=== PATIENT | male | born 1940 | race Caucasian/White ===

== ENCOUNTER 2019-12-28 20:02 | Outpatient (CLI) | payer MEDICARE | END 2019-12-28 20:03 | disposition critical access hospital (66) | LOC: EMS 20:02 | PROVIDERS: ATTEND Surgery | DX: R55 Syncope and collapse (principal) | CPT/HCPCS: A0425; A0429 ==

== ENCOUNTER 2019-12-28 20:27 | Emergency (ER) | payer MEDICARE ==
--- NOTE | 2019-12-28 20:29 | ED Physician Documentation ---
History of Present Illness - Stated complaint Stated Complaint: NEAR SYNCOPE, GLF - History obtained from History obtained from: Patient, EMS (The patient is a 79-year-old male who lives at an assisted living facility he was found slumped over on his couch tonmouna and they called 911 and sent the patient to the ER. The patient denies any complaints he denies any head injury he does admit to drinking alcohol.Patient denies any chest pain or shortness of breath or head pain or abdominal pain.) Review of Systems Ten Systems: 10 systems reviewed and negative Constitutional: reports: Reviewed and negative Eyes: reports: Reviewed and negative Ears: reports: Reviewed and negative Nose: reports: Reviewed and negative Throat: reports: Reviewed and negative Cardiac: reports: Reviewed and negative Respiratory: reports: Reviewed and negative GI: reports: Reviewed and negative : reports: Reviewed and negative Skin: reports: Reviewed and negative Musculoskeletal: reports: Reviewed and negative Neurologic: reports: Reviewed and negative Psychiatric: reports: Reviewed and negative Endocrine: reports: Reviewed and negative Immunocompromised: reports: Reviewed and negative PD PAST MEDICAL HISTORY - Present Medications Home Medications: Ambulatory Orders Medication Instructions Recorded Confirmed Aspirin [Children's Aspirin] 81 mg PO DAILY 12/28/19 12/28/19 Atenolol [Tenormin] 50 mg PO BID 12/28/19 12/28/19 Atorvastatin Calcium 40 mg PO DAILY 12/28/19 12/28/19 Folic Acid 1 mg PO DAILY 12/28/19 12/28/19 [place]-3/Dha/Epa/Fish Oil [Fish Oil 1 cap PO DAILY 12/28/19 12/28/19 1,000 mg Softgel] Valsartan/Hydrochlorothiazide 1 tab PO DAILY 12/28/19 12/28/19 [Valsartan-Hctz 160-25 mg Tab] amLODIPine [Norvasc] 5 mg PO DAILY 12/28/19 12/28/19 - Allergies Allergies/Adverse Reactions: Allergies Allergy/AdvReac Type Severity Reaction Status Date / Time rosuvastatin [From Crestor] Allergy Unknown Verified 12/28/19 20:35 PD ED PE NORMAL - Vitals Vital signs reviewed: Yes - General General: Alert and oriented X 3, No acute distress, Well developed/nourished - HEENT HEENT: Atraumatic, PERRL, Moist mucous membranes - Neck Neck: Supple, no meningeal sign, No JVD - Cardiac Cardiac: RRR, No murmur, Strong equal pulses - Respiratory Respiratory: No respiratory distress, Clear bilaterally - Abdomen Abdomen: Normal bowel sounds, Soft, Non tender, Non distended, Other (no facial droop, no unilateral weakness. ) - Derm Derm: Warm and dry - Extremities Extremities: No deformity, No calf tenderness / cord - Neuro Neuro: Alert and oriented X 3, roll mechanic 2-12 intact, No motor deficit, No sensory deficit, Normal speech - Psych Psych: Normal mood, Normal affect Results - Vitals Vitals: Vital Signs - 24 hr 12/28/19 12/28/19 12/28/19 20:29 21:16 21:46 Temperature 36.8 C Heart Rate 91 90 100 Respiratory 18 17 17 Rate Blood Pressure 130/71 130/71 128/72 O2 Saturation 98 96 99 12/28/19 22:15 Temperature Heart Rate 81 Respiratory 19 Rate Blood Pressure 125/82 H O2 Saturation 96 Oxygen O2 Source Room air - EKG (time done) 20:34 Rate: Rate (enter#) (92), Other (NO STEMI) Maxwell: LAD Intervals: Other (RBBB LAFB) Ischemia: Non specific changes - Labs Labs: Laboratory Tests 12/28/19 12/28/19 12/28/19 20:50 20:52 20:52 WBC 9.5 RBC 3.63 L Hgb 11.1 L Hct 33.9 L MCV 93.4 MCH 30.6 MCHC 32.7 RDW 13.2 Plt Count 327 MPV 9.2 Neut # (Auto) 7.4 H Lymph # (Auto) 1.0 L [place] # (Auto) 1.0 Eos # (Auto) 0.1 Baso # (Auto) 0.0 Absolute Nucleated RBC 0.00 Nucleated RBC % 0.0 PT 15.0 H INR 1.3 H APTT 30.1 Sodium Potassium Chloride Carbon Dioxide Anion Gap BUN Creatinine Estimated GFR (MDRD) Glucose Calcium Total Bilirubin AST ALT Alkaline Phosphatase Total Creatine Kinase Troponin I High Sens B-Natriuretic Peptide Total Protein Albumin Globulin Albumin/Globulin Ratio Lipase Urine Color YELLOW Urine Clarity CLEAR Urine pH 6.0 Ur Specific [place] 1.020 Urine Protein TRACE Urine Glucose (UA) NEGATIVE Urine Ketones NEGATIVE Urine Occult Blood SMALL H Urine Nitrite NEGATIVE Urine Bilirubin NEGATIVE Urine Urobilinogen 0.2 (NORMAL) Ur Leukocyte Esterase NEGATIVE Urine RBC 6-10 H Urine WBC 0-3 Ur Squamous Epith Cells NONE SEEN Urine Bacteria None Seen Urine Mucus Few Strands Ur Microscopic Review INDICATED Urine Culture Comments NOT INDICATED Ethyl Alcohol 12/28/19 12/28/19 12/28/19 20:52 20:52 20:52 WBC RBC Hgb Hct MCV MCH MCHC RDW Plt Count MPV Neut # (Auto) Lymph # (Auto) [place] # (Auto) Eos # (Auto) Baso # (Auto) Absolute Nucleated RBC Nucleated RBC % PT INR APTT Sodium 137 Potassium 3.7 Chloride 100 L Carbon Dioxide 23 Anion Gap 14.0 H BUN 15 Creatinine 1.1 Estimated GFR (MDRD) 65 L Glucose 108 H Calcium 8.1 L Total Bilirubin 1.2 H AST 17 ALT 14 Alkaline Phosphatase 50 Total Creatine Kinase 86 Troponin I High Sens 12.0 B-Natriuretic Peptide 87 Total Protein 6.8 Albumin 3.4 Globulin 3.4 Albumin/Globulin Ratio 1.0 Lipase 46 Urine Color Urine Clarity Urine pH Ur Specific [place] Urine Protein Urine Glucose (UA) Urine Ketones Urine Occult Blood Urine Nitrite Urine Bilirubin Urine Urobilinogen Ur Leukocyte Esterase Urine RBC Urine WBC Ur Squamous Epith Cells Urine Bacteria Urine Mucus Ur Microscopic Review Urine Culture Comments Ethyl Alcohol 82.8 Departure - Departure Disposition: 01 Home, Self Care Clinical Impression: Alcohol intoxication Qualifiers: Complication of substance-induced condition: with unspecified complication Qualified Code(s): F10.929 - Alcohol use, unspecified with intoxication, unspecified Condition: Good Instructions: ED Alcohol Intoxication Follow-Up: YOUR,DOCTOR [Other] - Tomorrow
[2019-12-28 20:55] LABS: BILIRUBIN,URINE NEGATIVE (NEGATIVE); GLUCOSE, URINE (UA) NEGATIVE (NEGATIVE); KETONES,URINE (UA) NEGATIVE (NEGATIVE); LEUKOCYTE ESTERASE, URINE NEGATIVE (NEGATIVE); NITRITE,URINE NEGATIVE (NEGATIVE); OCCULT BLOOD,URINE SMALL (NEGATIVE); PROTEIN,URINE TRACE mg/dL (NEGATIVE); UROBILINOGEN,URINE 0.2 (NORMAL) E.U./dL (NORMAL)
[2019-12-28 20:56] LABS: CLARITY,URINE CLEAR (CLEAR)
[2019-12-28 21:04] LABS: BACTERIA,URINE None Seen /HPF (None Seen); MUCUS,URINE Few Strands; SQUAMOUS EPITHELIAL CELL,UR NONE SEEN (<= Few)
[2019-12-28 21:09] LABS: BASOPHILS % (AUTO) 0.4 %; EOSINOPHILS # (AUTO) 0.1 10^3/uL (0.0-0.7); EOSINOPHILS % (AUTO) 0.5 %; HGB - HEMOGLOBIN 11.1 g/dL (14.0-18.0); LYMPHOCYTES % (AUTO) 10.1 %; MEAN CORPUSCULAR HEMOGLOBIN 30.6 pg (27.0-31.0); MEAN CORPUSCULAR HGB CONC 32.7 g/dL (32.0-36.0); MEAN CORPUSCULAR VOLUME 93.4 fL (80.0-94.0); MEAN PLATELET VOLUME 9.2 fL (7.4-11.4); MONOCYTES % (AUTO) 10.3 %; NEUTROPHILS # (AUTO) 7.4 10^3/uL (1.5-6.6); NEUTROPHILS % (AUTO) 77.9 %; PLT - PLATELET COUNT 327 10^3/uL (130-450); RED BLOOD COUNT 3.63 10^6/uL (4.70-6.10); RED CELL DISTRIBUTION WIDTH 13.2 % (12.0-15.0); WHITE BLOOD COUNT 9.5 x10^3/uL (4.8-10.8)
[2019-12-28 21:15] LABS: INR 1.3 (0.8-1.2)
[2019-12-28 21:22] LABS: PARTIAL THROMBOPLASTIN TIME 30.1 secs (24.9-33.3)
[2019-12-28 21:23] LABS: ALBUMIN 3.4 g/dL (3.2-5.5); BILIRUBIN,TOTAL 1.2 mg/dL (0.2-1.0); CALCIUM 8.1 mg/dL (8.5-10.3); CREATININE 1.1 mg/dL (0.6-1.2); TOTAL PROTEIN 6.8 g/dL (6.7-8.2)
--- NOTE | 2019-12-28 21:30 | XRAY Report ---
Reason: CHEST PAIN Procedure Date: 12/28/2019 Accession Number: [id number] / [id number] Procedure: XR - Chest 1 View X-Ray CPT Code: 03290 Final Report FULL RESULT: EXAM: CHEST RADIOGRAPHY EXAM DATE: 12/28/2019 09:08 PM. CLINICAL HISTORY: CHEST PAIN. COMPARISON: None. TECHNIQUE: 1 view. FINDINGS: Lungs/Pleura: Right midlung calcified pulmonary nodule measuring 1 cm. No consolidation, pleural effusion or pneumothorax. Mediastinum: Within exam limitations, the cardiomediastinal contour is normal. IMPRESSION: No acute cardiopulmonary disease seen. Calcified right midlung pulmonary nodule. RADIA
--- NOTE | 2019-12-28 21:55 | CT Report ---
Reason: SYNCOPE Procedure Date: 12/28/2019 Accession Number: [id number] / [id number] Procedure: CT - HEAD WO CPT Code: Final Report FULL RESULT: EXAM: CT HEAD EXAM DATE: 12/28/2019 09:32 PM. CLINICAL HISTORY: Syncope. COMPARISON: None. TECHNIQUE: Multiaxial CT images were obtained from the foramen magnum to the vertex. Reformats: Sagittal and coronal. IV contrast: None. In accordance with CT protocol optimization, one or more of the following dose reduction techniques were utilized for this exam: automated exposure control, adjustment of mA and/or KV based on patient size, or use of iterative reconstructive technique. FINDINGS: Parenchyma: No intraparenchymal hemorrhage. No evidence of mass, midline shift, or CT findings of infarction. Joe-white differentiation is distinct. Extraaxial Spaces: Normal for age. No subdural or epidural collections identified. Ventricles: Normal in size and position. Sinuses and Orbits: Imaged paranasal sinuses, orbits, and mastoids show no significant abnormality. Bones: No evidence of fracture or calvarial defect. Other: None. IMPRESSION: No acute intracranial abnormality. RADIA
[2019-12-28 23:23] VITALS: BP 125/75
== END 2019-12-28 23:20 | disposition home or self-care (01) ==
LOC: ED 20:27
DX: F10.129 Alcohol abuse with intoxication, unspecified (principal)
CPT/HCPCS: 36415; 70450; 71045; 80053; 80320; 81001; 81003; 82550; 83690; 83880; 84484; 85025; 85610; 85730; 87086; 93005; 99284

== ENCOUNTER 2020-04-09 20:50 | Outpatient (CLI) | payer MEDICARE | END 2020-04-09 20:51 | disposition short-term general hospital (02) | LOC: EMS 20:50 | PROVIDERS: ATTEND Surgery | DX: R41.0 Disorientation, unspecified (principal); R53.1 Weakness | CPT/HCPCS: A0425; A0429 ==

== ENCOUNTER 2020-05-09 08:31 | Outpatient (CLI) | payer MEDICARE ==
[2020-05-09 15:57] LABS: BASOPHILS % (AUTO) 0.6 %; EOSINOPHILS # (AUTO) 0.1 10^3/uL (0.0-0.7); EOSINOPHILS % (AUTO) 1.8 %; HGB - HEMOGLOBIN 11.8 g/dL (14.0-18.0); LYMPHOCYTES # (AUTO) 1.2 10^3/uL (1.5-3.5); MEAN CORPUSCULAR HEMOGLOBIN 29.8 pg (27.0-31.0); MEAN CORPUSCULAR HGB CONC 31.5 g/dL (32.0-36.0); MEAN CORPUSCULAR VOLUME 94.7 fL (80.0-94.0); MEAN PLATELET VOLUME 9.9 fL (7.4-11.4); MONOCYTES # (AUTO) 0.6 10^3/uL (0.0-1.0); MONOCYTES % (AUTO) 8.4 %; NEUTROPHILS # (AUTO) 5.1 10^3/uL (1.5-6.6); NEUTROPHILS % (AUTO) 71.9 %; PLT - PLATELET COUNT 400 10^3/uL (130-450); RED BLOOD COUNT 3.96 10^6/uL (4.70-6.10); RED CELL DISTRIBUTION WIDTH 13.4 % (12.0-15.0); WHITE BLOOD COUNT 7.1 x10^3/uL (4.8-10.8)
[2020-05-09 16:32] LABS: ALBUMIN 3.4 g/dL (3.2-5.5); ALBUMIN/GLOBULIN RATIO 0.9 (1.0-2.2); ALKALINE PHOSPHATASE 62 IU/L (42-121); ALT ALANINE AMINOTRANSFERASE 21 IU/L (10-60); AST ASPARTATE AMINOTRANSFERASE 23 IU/L (10-42); BILIRUBIN,TOTAL 0.9 mg/dL (0.2-1.0); BUN - BLOOD UREA NITROGEN 12 mg/dL (6-20); CALCIUM 8.5 mg/dL (8.5-10.3); CARBON DIOXIDE - CO2 29 mmol/L (21-32); CHLORIDE 96 mmol/L (101-111); CHOL/HDL RATIO 5.1 (<5.0); CHOLESTEROL 133 mg/dL; CREATININE 1.1 mg/dL (0.6-1.2); GLUCOSE 113 mg/dL (70-100); HDL CHOLESTEROL 26 mg/dL; LDL CHOLESTEROL,CALCULATED 87 mg/dL; LDL/HDL RATIO 3.3 (<3.6); SODIUM 134 mmol/L (135-145); VLDL CHOLESTEROL 20 mg/dL
== END 2020-05-09 08:32 | disposition home or self-care (01) ==
LOC: LAB.S 08:31
PROVIDERS: ATTEND Physician Assistant
DX: E78.5 Hyperlipidemia, unspecified (principal); I10 Essential (primary) hypertension; Z79.899 Other long term (current) drug therapy
CPT/HCPCS: 36415; 80053; 80061; 83721; 84443; 85025

== ENCOUNTER 2020-07-04 21:08 | Outpatient (CLI) | payer MEDICARE | END 2020-07-04 21:09 | disposition critical access hospital (66) | LOC: EMS 21:08 | PROVIDERS: ATTEND Surgery | DX: S01.81XA Laceration without foreign body of other part of head, initial encounter (principal); W18.39XA Other fall on same level, initial encounter; W22.09XA Striking against other stationary object, initial encounter; Y93.E8 Activity, other personal hygiene; Y92.091 Bathroom in other non-institutional residence as the place of occurrence of the external cause | CPT/HCPCS: A0425; A0429 ==

== ENCOUNTER 2020-08-18 11:13 | Outpatient (CLI) | payer MEDICARE | END 2020-08-18 11:14 | disposition critical access hospital (66) | LOC: EMS 11:13 | PROVIDERS: ATTEND Surgery | DX: R41.0 Disorientation, unspecified (principal) | CPT/HCPCS: A0425; A0429 ==

== ENCOUNTER 2020-08-18 12:07 | Emergency (ER) | payer BC, MEDICARE ==
--- NOTE | 2020-08-18 12:35 | ED Physician Documentation ---
History of Present Illness - Stated complaint Stated Complaint: CONFUSED - Chief complaint Chief Complaint: General - History obtained from History obtained from: Patient - History of Present Illness Timing: Today Pain level max: 0 Pain level now: 0 - Additonal information Additional information: 79-year-old male walking his dog outside of [facility] today when he sat down next to the flag pole, someone went to help him up and he stumbled. No head, neck, back pain. No loss of consciousness. No injuries. [place] thought he should "get checked out". 911 was called and patient was sent to the emergency department. Patient states he has no complaints. Feels normal and wants to go back home. Review of Systems Unable to obtain: Dementia Constitutional: denies: Fever, Chills Nose: denies: Rhinorrhea / runny nose, Congestion Skin: denies: Rash Musculoskeletal: denies: Neck pain, Back pain Neurologic: denies: Focal weakness, Numbness PD PAST MEDICAL HISTORY - Past Medical History Cardiovascular: Hypertension, High cholesterol Neuro: Dementia Psych: Other - Present Medications Home Medications: Ambulatory Orders Medication Instructions Recorded Confirmed Aspirin [Children's Aspirin] 81 mg PO DAILY 12/28/19 07/04/20 Atorvastatin Calcium 40 mg PO DAILY 12/28/19 07/04/20 Folic Acid 1 mg PO DAILY 12/28/19 12/28/19 [place]-3/Dha/Epa/Fish Oil [Fish Oil 1 cap PO DAILY 12/28/19 12/28/19 1,000 mg Softgel] Acetaminophen 650 mg PO Q4HR PRN 07/04/20 07/04/20 Cyanocobalamin (Vitamin B-12) 1 tab PO DAILY 07/04/20 07/04/20 [Vitamin B-12 (1000 mcg sublingual)] Metoprolol Tartrate 25 mg PO BID 07/04/20 07/04/20 Quetiapine Fumarate 25 mg PO BID 07/04/20 07/04/20 Sennosides [Ex-Lax] 30 mg PO DAILY PRN 07/04/20 07/04/20 Sennosides/Docusate Sodium [Senna 1 tab PO BID PRN 07/04/20 07/04/20 Plus 8.6-50 mg Tablet] cephALEXin [Cephalexin] 500 mg PO TID 07/04/20 07/04/20 - Allergies Allergies/Adverse Reactions: Allergies Allergy/AdvReac Type Severity Reaction Status Date / Time rosuvastatin [From Crestor] Allergy Unknown Verified 07/04/20 21:41 - Social History Does the pt smoke?: No Smoking Status: Never smoker Does the pt drink ETOH?: Yes Does the pt have substance abuse?: No - Immunizations Immunizations are current?: No - POLST Patient has POLST: No PD ED PE NORMAL - Vitals Vital signs reviewed: Yes - General General: Alert and oriented X 3, No acute distress - HEENT HEENT: Atraumatic, PERRL, Moist mucous membranes - Neck Neck: Supple, no meningeal sign, No bony TTP - Cardiac Cardiac: RRR - Respiratory Respiratory: No respiratory distress, Clear bilaterally - Abdomen Abdomen: Soft, Non tender, Non distended - Back Back: No spinal TTP - Derm Derm: Warm and dry - Extremities Extremities: No deformity, No tenderness to palpate, Normal ROM s pain - Neuro Neuro: Alert and oriented X 3 - Psych Psych: Normal mood, Normal affect Results - Vitals Vitals: Vital Signs - 24 hr 08/18/20 12:17 Temperature 36.8 C Heart Rate 60 Respiratory 16 Rate Blood Pressure 133/72 H O2 Saturation 100 Oxygen O2 Source Room air PD MEDICAL DECISION MAKING - ED course Complexity details: considered differential, d/w patient ED course: No injuries. No abrasions. No lacerations. No evidence of head injury. Patient is at his normal baseline. Patient will be discharged back home. This document was made in part using voice recognition software. While efforts are made to proofread this document, sound alike and grammatical errors may occur. Departure - Departure Disposition: 01 Home, Self Care Clinical Impression: Dementia Qualifiers: Dementia type: unspecified type Dementia behavioral disturbance: without behavioral disturbance Qualified Code(s): F03.90 - Unspecified dementia without behavioral disturbance Fall Qualifiers: Encounter type: initial encounter Qualified Code(s): W19.XXXA - Unspecified fall, initial encounter Condition: Good Instructions: ED Mechanical Fall Follow-Up: your,doctor in 1 week [Other] Comments: Follow up with your doctor for further care.
[2020-08-18 13:30] VITALS: BP 143/63
== END 2020-08-18 13:30 | disposition home or self-care (01) ==
LOC: EDUNIT# → ED 12:07
DX: Z03.89 Encounter for observation for other suspected diseases and conditions ruled out (principal); F03.90 Unspecified dementia, unspecified severity, without behavioral disturbance, psychotic disturbance, mood disturbance, and anxiety
CPT/HCPCS: 99283; 99284

== ENCOUNTER 2021-08-25 21:30 | Outpatient (CLI) | payer MEDICARE | END 2021-08-25 21:31 | disposition critical access hospital (66) | LOC: EMS 21:30 | DX: R41.82 Altered mental status, unspecified (principal) | CPT/HCPCS: A0425; A0427 ==

== ENCOUNTER 2021-08-25 21:54 | Emergency (ER) | payer MEDICARE ==
[2021-08-25] MEDS ORDERED: SODIUM CHLORIDE 0.9% 1,000 ML IV STA (22:06)
--- NOTE | 2021-08-25 22:08 | ED Physician Documentation ---
PD HPI ALTERED MENTAL STATUS - Stated complaint Stated Complaint: LETHARGIC - History obtained from History obtained from: Patient, EMS - History of Present Illness Timing - onset: Enter time (1800), Today Timing - duration: Hours Timing - details: Gradual onset, Still present Quality / character: Less responsive Associated symptoms: Urinary sx (frequency), General weakness. No: Fever, Headache, Stiff neck, Dyspnea, Cough, NVD, Focal weakness, Seizure activity, Syncope Contributing factors: Known dementia. No: Anticoagulated, Diabetic, Recent illness Basline status: Ambulatory, Confused Similar symptoms before: Has not had sx before Recently seen: Not recently seen - Additional information Additional information: 80-year-old male with a known history of dementia was last seen normal at 1300 today and this evening around 6:00 he began to be less responsive had poor color and weakness. The ambulance was summoned and the patient has been brought to the hospital he is been given a 500 mL bolus in route to the hospital when he was not able to complete orthostatics secondary to weakness. He had improvement in his color and interaction. Review of Systems Unable to obtain: Confused, Dementia PD PAST MEDICAL HISTORY - Past Medical History Cardiovascular: Hypertension, High cholesterol Neuro: Dementia Psych: Other - Past Surgical History Past Surgical History: No - Present Medications Home Medications: Ambulatory Orders Medication Instructions Recorded Confirmed Aspirin [Children's Aspirin] 81 mg PO DAILY 12/28/19 08/26/21 Atorvastatin Calcium 40 mg PO DAILY 12/28/19 08/26/21 Folic Acid 1 mg PO DAILY 12/28/19 08/26/21 [place]-3/Dha/Epa/Fish Oil [Fish Oil 1 cap PO DAILY 12/28/19 08/26/21 1,000 mg Softgel] Acetaminophen 650 mg PO Q4HR PRN 07/04/20 08/26/21 Cyanocobalamin (Vitamin B-12) 1 tab PO DAILY 07/04/20 08/26/21 [Vitamin B-12 (1000 mcg sublingual)] Metoprolol Tartrate 25 mg PO BID 07/04/20 08/26/21 Quetiapine Fumarate 25 mg PO BID 07/04/20 08/26/21 Sennosides [Ex-Lax] 30 mg PO DAILY PRN 07/04/20 08/26/21 Sennosides/Docusate Sodium [Senna 1 tab PO BID PRN 07/04/20 08/26/21 Plus 8.6-50 mg Tablet] cephALEXin [Cephalexin] 500 mg PO TID 07/04/20 08/26/21 - Allergies Allergies/Adverse Reactions: Allergies Allergy/AdvReac Type Severity Reaction Status Date / Time rosuvastatin [From Crestor] Allergy Unknown Verified 08/25/21 22:03 - Social History Does the pt smoke?: No Smoking Status: Never smoker Does the pt drink ETOH?: Yes Does the pt have substance abuse?: No - Immunizations Immunizations are current?: No - POLST Patient has POLST: No PD ED PE NORMAL - Vitals Vital signs reviewed: Yes (normal ) - General General: No acute distress, Well developed/nourished, Other (3-4 second speech latency, greater delay in execution of motor commands. forgets what he is doing as he is doing it. ) - HEENT HEENT: Atraumatic, PERRL, EOMI, Other (dry mucous membranes) - Neck Neck: Supple, no meningeal sign, No bony TTP - Cardiac Cardiac: RRR, No murmur - Respiratory Respiratory: No respiratory distress, Clear bilaterally - Abdomen Abdomen: Normal bowel sounds, Soft, Non tender, Non distended, No organomegaly - Back Back: No CVA TTP, No spinal TTP - Derm Derm: Normal color, Warm and dry, No rash - Extremities Extremities: No deformity, No edema - Neuro Neuro: cattle feeder 2-12 intact, No motor deficit, No sensory deficit, Other (speech latency is present with poor content) Eye Opening: Spontaneous Motor: Obeys Commands Verbal: Confused GCS Score: 14 - Psych Psych: Normal mood, Normal affect Results - Vitals Vitals: Vital Signs - 24 hr 08/25/21 08/25/21 08/26/21 22:03 22:06 00:06 Temperature 36.8 C 36.6 C Heart Rate 68 68 66 Respiratory 16 16 24 Rate Blood Pressure 124/62 124/62 122/68 O2 Saturation 96 96 99 08/26/21 08/26/21 02:00 02:33 Temperature 36.6 C Heart Rate 93 89 Respiratory 22 21 Rate Blood Pressure 100/77 119/66 O2 Saturation 98 99 Oxygen O2 Source Room air - Labs Labs: Laboratory Tests 08/25/21 08/25/21 08/25/21 22:57 22:57 22:57 WBC 18.5 H RBC 4.34 L Hgb 13.7 L Hct 41.3 L MCV 95.2 H MCH 31.6 H MCHC 33.2 RDW 13.4 Plt Count 221 MPV 9.4 Neut # (Auto) Not Reportable Lymph # (Auto) Not Reportable [place] # (Auto) Not Reportable Eos # (Auto) Not Reportable Baso # (Auto) Not Reportable Absolute Nucleated RBC Not Reportable Total Counted 100 Band Neuts % (Manual) 6 Abnorm Lymph % (Manual) 0 Nucleated RBC % Not Reportable Neutrophils # (Manual) 17.2 H Lymphocytes # (Manual) 0.4 L Monocytes # (Manual) 0.9 Eosinophils # (Manual) 0.0 Basophils # (Manual) 0.0 Differential Comment MANUAL DIFFERENTIAL WBC Morphology NORMAL APPEARANCE Platelet Estimate NORMAL (130-450,000) Platelet Morphology NORMAL APPEARANCE RBC Morph Micro Appear NORMAL APPEARANCE Sodium 135 Potassium 4.0 Chloride 99 L Carbon Dioxide 25 Anion Gap 11.0 BUN 21 H Creatinine 1.4 H Estimated GFR (MDRD) 49 L Glucose 169 H Lactic Acid 2.0 Calcium 8.3 L Total Bilirubin 3.5 H AST 23 ALT 24 Alkaline Phosphatase 53 Total Protein 7.0 Albumin 3.7 Globulin 3.3 Albumin/Globulin Ratio 1.1 Lipase 28 Urine Color Urine Clarity Urine pH Ur Specific [place] Urine Protein Urine Glucose (UA) Urine Ketones Urine Occult Blood Urine Nitrite Urine Bilirubin Urine Urobilinogen Ur Leukocyte Esterase Urine RBC Urine WBC Ur Squamous Epith Cells Urine Bacteria Urine Casts Ur Microscopic Review Urine Culture Comments 08/26/21 01:44 WBC RBC Hgb Hct MCV MCH MCHC RDW Plt Count MPV Neut # (Auto) Lymph # (Auto) [place] # (Auto) Eos # (Auto) Baso # (Auto) Absolute Nucleated RBC Total Counted Band Neuts % (Manual) Abnorm Lymph % (Manual) Nucleated RBC % Neutrophils # (Manual) Lymphocytes # (Manual) Monocytes # (Manual) Eosinophils # (Manual) Basophils # (Manual) Differential Comment WBC Morphology Platelet Estimate Platelet Morphology RBC Morph Micro Appear Sodium Potassium Chloride Carbon Dioxide Anion Gap BUN Creatinine Estimated GFR (MDRD) Glucose Lactic Acid Calcium Total Bilirubin AST ALT Alkaline Phosphatase Total Protein Albumin Globulin Albumin/Globulin Ratio Lipase Urine Color YELLOW Urine Clarity CLEAR Urine pH 5.0 Ur Specific [place] >=1.030 H Urine Protein 30 H Urine Glucose (UA) NEGATIVE Urine Ketones TRACE Urine Occult Blood MODERATE H Urine Nitrite NEGATIVE Urine Bilirubin NEGATIVE Urine Urobilinogen 0.2 (NORMAL) Ur Leukocyte Esterase NEGATIVE Urine RBC 0-5 Urine WBC 0-3 Ur Squamous Epith Cells RARE Squamous Urine Bacteria Rare Urine Casts 0-2 Hyaline Casts Ur Microscopic Review INDICATED Urine Culture Comments NOT INDICATED - Rads (name of study) CT head Radiology: Prelim report reviewed (Impression: No acute intracranial process.), EMP read indepedently, See rad report cxr Radiology: Prelim report reviewed (Impression: No acute disease.), EMP read indepedently, See rad report Procedures - IVC sono (time) 2200 Bedside IVC sono: IVC measures (cm) (0.72), Significant dehydration (est 2-3 liter deficit) PD MEDICAL DECISION MAKING - ED course Complexity details: reviewed results, re-evaluated patient, considered differential, d/w patient ED course: 80-year-old male with a known history of dementia is a resident of [facility] where he was discovered more confused and less active than usual this evening. He has been transported in route he has been given a fluid bolus with some improvement. He is found to be significantly dehydrated on interrogation the inferior vena cava and is given additional saline. He has been having some urinary symptoms with increased urinary frequency. History is scant and is done through EMS and the history from EMS is done through the medical language specialist at [facility]. The patient responds to treatment with additional fluid and he has improvement in his speech latency and in his delay in execution of motor commands. No specific infection was identified. The patients level of dehydration was significant and may represent the beginning of terminal dehydration. The patient does not have a POLST form to indicate a desire for IV fluids or tube feedings. Departure - Departure Disposition: 01 Home, Self Care Clinical Impression: Dehydration determined by examination Dementia Qualifiers: Dementia type: unspecified type Dementia behavioral disturbance: without behavioral disturbance Qualified Code(s): F03.90 - Unspecified dementia without behavioral disturbance Condition: Stable Instructions: ED Dehydration Follow-Up: ANA GÓMEZ PA-C [Provider Admit Priv/Credential] - Discharge Date/Time: 08/26/21 03:09
[2021-08-25 23:06] LABS: BASOPHILS % (AUTO) 0.2 %; EOSINOPHILS % (AUTO) 0.1 %; HCT - HEMATOCRIT 41.3 % (42.0-52.0); HGB - HEMOGLOBIN 13.7 g/dL (14.0-18.0); LYMPHOCYTES % (AUTO) 2.4 %; MEAN CORPUSCULAR HEMOGLOBIN 31.6 pg (27.0-31.0); MEAN CORPUSCULAR HGB CONC 33.2 g/dL (32.0-36.0); MEAN CORPUSCULAR VOLUME 95.2 fL (80.0-94.0); MEAN PLATELET VOLUME 9.4 fL (7.4-11.4); MONOCYTES % (AUTO) 5.5 %; NEUTROPHILS % (AUTO) 90.6 %; PLT - PLATELET COUNT 221 10^3/uL (130-450); RED BLOOD COUNT 4.34 10^6/uL (4.70-6.10); RED CELL DISTRIBUTION WIDTH 13.4 % (12.0-15.0); WHITE BLOOD COUNT 18.5 x10^3/uL (4.8-10.8)
[2021-08-25 23:08] LABS: ABNORMAL LYMPHS % (MANUAL) 0 %
--- NOTE | 2021-08-25 23:16 | XRAY Report ---
PROCEDURE: Chest 1 View X-Ray INDICATIONS: chest pain TECHNIQUE: One view of the chest was acquired. COMPARISON: None FINDINGS: Surgical changes and devices: None. Lungs and pleura: No pleural effusions or pneumothorax. Lungs are clear. Mediastinum: Mediastinal contours appear normal. Heart size is normal. Bones and chest wall: No suspicious bony lesions. Overlying soft tissues appear unremarkable. IMPRESSION: No acute disease. Reviewed by: Charlie King MD on 08/25/2021 11:14 PM PDT Approved by: Charlie King MD on 08/25/2021 11:14 PM PDT Station ID: [id number]
[2021-08-25 23:17] LABS: ALBUMIN 3.7 g/dL (3.2-5.5); ALBUMIN/GLOBULIN RATIO 1.1 (1.0-2.2); BILIRUBIN,TOTAL 3.5 mg/dL (0.2-1.0); CALCIUM 8.3 mg/dL (8.5-10.3); CREATININE 1.4 mg/dL (0.6-1.2)
--- NOTE | 2021-08-25 23:18 | CT Report ---
PROCEDURE: HEAD WO INDICATIONS: aloc TECHNIQUE: Noncontrast 4.5 mm thick angled axial sections acquired from the foramen magnum to the vertex. For r adiation dose reduction, the following was used: automated exposure control, adjustment of mA and/or kV according to patient size. COMPARISON: None. FINDINGS: Image quality: Excellent. CSF spaces: Basal cisterns are patent. No extra-axial fluid collections. Ventricles are normal in size and shape. Brain: No midline shift. No intracranial masses or hemorrhage. Joe-white matter interface is norm al. Skull and face: Calvarium and visualized facial bones are intact, without suspicious lesions. Sinuses: Visualized sinuses and mastoids are clear. IMPRESSION: No acute intracranial process. Reviewed by: Charlie King MD on 08/25/2021 11:16 PM PDT Approved by: Charlie King MD on 08/25/2021 11:16 PM PDT Station ID: [id number]
[2021-08-25 23:22] LABS: BAND NEUTROPHILS % (MANUAL) 6 %; DIFFERENTIAL COMMENT MANUAL DIFFERENTIAL; LYMPHOCYTES # (MANUAL) 0.4 10^3/uL (1.5-3.5); LYMPHOCYTES % (MANUAL) 2 %; MONOCYTES # (MANUAL) 0.9 10^3/uL (0.0-1.0); NEUTROPHILS # (MANUAL) 17.2 10^3/uL (1.5-6.6); PLATELET ESTIMATE, MANUAL NORMAL (130-450,000) (NORMAL); PLATELET MORPHOLOGY NORMAL APPEARANCE (NORMAL); RBC MORPHOLOGY (MULTIPLE) NORMAL APPEARANCE (NORMAL); WBC MORPHOLOGY (MULTIPLE) NORMAL APPEARANCE (NORMAL)
[2021-08-26] MEDS ORDERED: SODIUM CHLORIDE 0.9% 1,000 ML IV STA (00:07)
[2021-08-26 02:01] LABS: BILIRUBIN,URINE NEGATIVE (NEGATIVE); GLUCOSE, URINE (UA) NEGATIVE (NEGATIVE); KETONES,URINE (UA) TRACE mg/dL (NEGATIVE); LEUKOCYTE ESTERASE, URINE NEGATIVE (NEGATIVE); NITRITE,URINE NEGATIVE (NEGATIVE); OCCULT BLOOD,URINE MODERATE (NEGATIVE); PROTEIN,URINE 30 mg/dL (NEGATIVE); UROBILINOGEN,URINE 0.2 (NORMAL) E.U./dL (NORMAL)
[2021-08-26 02:07] LABS: CLARITY,URINE CLEAR (CLEAR); RBC,URINE 0-5 /HPF (0-5); SQUAMOUS EPITHELIAL CELL,UR RARE Squamous (<= Few); WBC,URINE 0-3 /HPF (0-3)
[2021-08-26 02:08] LABS: BACTERIA,URINE Rare /HPF (None Seen); CASTS, URINE 0-2 Hyaline Casts /LPF
[2021-08-26 02:35] VITALS: BP 119/66
--- NOTE | 2021-08-27 13:12 | ED Physician Documentation ---
ED Addendum - Addendum Addendum: 08/27/21 13:11 patient with 2 positive blood cultures, will call back to ED. Informed culture RN Dwaine
== END 2021-08-26 03:09 | disposition home or self-care (01) ==
LOC: EDUNIT# → ED 21:54
DX: E86.0 Dehydration (principal); R78.81 Bacteremia; R35.0 Frequency of micturition; F03.90 Unspecified dementia, unspecified severity, without behavioral disturbance, psychotic disturbance, mood disturbance, and anxiety; I10 Essential (primary) hypertension; Z79.82 Long term (current) use of aspirin
CPT/HCPCS: 36415; 80053; 81001; 81003; 83605; 83690; 85025; 87040; 87086; 87150; 96360; 96361; 99282

== ENCOUNTER 2021-08-26 02:23 | Outpatient (CLI) | payer MEDICARE | END 2021-08-26 02:24 | disposition home or self-care (01) | LOC: EMS 02:23 | PROVIDERS: ATTEND Emergency Medicine | DX: F03.90 Unspecified dementia, unspecified severity, without behavioral disturbance, psychotic disturbance, mood disturbance, and anxiety (principal); R41.0 Disorientation, unspecified; E86.0 Dehydration | CPT/HCPCS: A0425; A0428 ==

== ENCOUNTER 2021-08-27 14:24 | Outpatient (CLI) | payer MEDICARE | END 2021-08-27 14:25 | disposition critical access hospital (66) | LOC: EMS 14:24 | DX: R78.9 Finding of unspecified substance, not normally found in blood (principal) | CPT/HCPCS: A0425; A0429 ==

== ENCOUNTER 2021-08-27 14:49 | Inpatient (IN) | payer MEDICARE ==
--- NOTE | 2021-08-27 14:54 | ED Physician Documentation ---
PD HPI URI - Stated complaint Stated Complaint: POSITIVE BLOOD CULTURES - History obtained from History obtained from: Patient - History of Present Illness Timing - onset: How many days ago (several days ago) Timing details: Gradual onset (O. Seen in the ERThe patient was noted to have general weakness and some decreased mentation are with evaluation and testing. Subsequently did have blood cultures positive and called to come back. Reportedly still with some general weakness. Denies abd pain, fevers, vomiting, diarrhea.), Waxing and waning Associated symptoms: Fever, Nasal congestion, Dry cough. No: Chest pain, NVD, Bilateral edema Contributing factors: No: Sick contact, Travel, Unimmunized Similar symptoms before: Has not had sx before Recently seen: Emergency Dept (2 days ago.) Review of Systems Unable to obtain: Dementia Constitutional: reports: Fever Nose: reports: Congestion. denies: Rhinorrhea / runny nose Cardiac: denies: Chest pain / pressure Respiratory: reports: Cough GI: denies: Vomiting, Diarrhea Skin: denies: Rash Neurologic: reports: Altered mental status (seemed less alert couple days ago.). denies: Headache PD PAST MEDICAL HISTORY - Past Medical History Cardiovascular: Hypertension, High cholesterol Respiratory: None Neuro: Dementia Endocrine/Autoimmune: None GI: None Psych: Other - Past Surgical History Past Surgical History: No - Present Medications Home Medications: Ambulatory Orders Medication Instructions Recorded Confirmed Aspirin [Children's Aspirin] 81 mg PO DAILY 12/28/19 08/27/21 Atorvastatin Calcium 40 mg PO DAILY 12/28/19 08/27/21 Acetaminophen 650 mg PO Q4HR PRN 07/04/20 08/27/21 Cyanocobalamin (Vitamin B-12) 1 tab PO DAILY 07/04/20 08/27/21 [Vitamin B-12 (1000 mcg sublingual)] Metoprolol Tartrate 25 mg PO BID 07/04/20 08/27/21 Quetiapine Fumarate 25 mg PO BID 07/04/20 08/27/21 Sennosides/Docusate Sodium [Senna 1 tab PO BID PRN 07/04/20 08/27/21 Plus 8.6-50 mg Tablet] Multivit-Min/Folic/Vit K/Lycop 1 each PO DAILY 08/27/21 08/27/21 [One Daily Men's 50 Plus D3 Tab] - Allergies Allergies/Adverse Reactions: Allergies Allergy/AdvReac Type Severity Reaction Status Date / Time rosuvastatin [From Crestor] Allergy Unknown Verified 08/25/21 22:03 - Living Situation Living Situation: reports: With caregiver(s) Living Arrangement: reports: Assisted living ([place]) - Social History Does the pt smoke?: No Smoking Status: Never smoker Does the pt drink ETOH?: Yes Does the pt have substance abuse?: No - Family History Family history: reports: Non contributory - Immunizations Immunizations are current?: No - POLST Patient has POLST: No POLST Status: POA is court appointed PD ED PE NORMAL - Vitals Vital signs reviewed: Yes - General General: No acute distress, Well developed/nourished, Other (some upper airway congestion, and gurgling with breathing. No accessory muscle use. Unlabored breathing. ) - HEENT HEENT: PERRL (some conjunctival redness without discharge right eye. Mild medial [place] crusting. ), EOMI, Ears normal, Pharynx benign - Neck Neck: Supple, no meningeal sign, No adenopathy - Cardiac Cardiac: RRR, No murmur - Respiratory Respiratory: Clear bilaterally - Abdomen Abdomen: Soft, Non tender (I did not elicit any abd tenderness to palpation. ), Non distended. No: Normal bowel sounds (diminished) - Male Male : Other (Normal external genitalia. ) - Rectal Rectal: Other (No sacral nor perirectal sores nor rash. ) - Back Back: No CVA TTP - Derm Derm: Normal color - Extremities Extremities: No tenderness to palpate, No edema, No calf tenderness / cord - Neuro Neuro: No motor deficit, Normal speech (minimal on answers, but is receptive to questions and answers yes/no readily. ). No: Alert and oriented X 3 (person) Eye Opening: Spontaneous Motor: Obeys Commands Verbal: Confused GCS Score: 14 Results - Vitals Vitals: Vital Signs - 24 hr 08/27/21 08/27/21 08/27/21 14:53 16:00 17:04 Temperature 100.3 C H 97.8 C H Heart Rate 74 79 74 Respiratory 26 H 25 H 26 H Rate Blood Pressure 122/85 H 131/73 H 124/69 O2 Saturation 94 95 95 Oxygen O2 Source Room air - Labs Labs: Laboratory Tests 10/08/27/21 08/27/21 15:17 15:25 15:25 WBC 12.4 H RBC 4.05 L Hgb 12.9 L Hct 38.3 L MCV 94.6 H MCH 31.9 H MCHC 33.7 RDW 13.7 Plt Count 198 MPV 9.8 Neut # (Auto) Not Reportable Lymph # (Auto) Not Reportable [place] # (Auto) Not Reportable Eos # (Auto) Not Reportable Baso # (Auto) Not Reportable Absolute Nucleated RBC Not Reportable Total Counted 100 Band Neuts % (Manual) 5 Abnorm Lymph % (Manual) 0 Nucleated RBC % Not Reportable Neutrophils # (Manual) 11.3 H Lymphocytes # (Manual) 0.7 L Monocytes # (Manual) 0.4 Eosinophils # (Manual) 0.0 Basophils # (Manual) 0.0 Differential Comment MANUAL DIFFERENTIAL Manual Slide Review Indicated WBC Morphology 1+ DOHLE BODIES Platelet Estimate NORMAL (130-450,000) Platelet Morphology NORMAL APPEARANCE RBC Morph Micro Appear 1+ ANISOCYTOSIS Sodium 139 Potassium 3.5 Chloride 105 Carbon Dioxide 24 Anion Gap 10.0 BUN 25 H Creatinine 1.1 Estimated GFR (MDRD) 65 L Glucose 150 H Lactic Acid Calcium 8.2 L Total Bilirubin 3.3 H AST 58 H ALT 46 Alkaline Phosphatase 44 B-Natriuretic Peptide Total Protein 6.6 L Albumin 3.0 L Globulin 3.6 Albumin/Globulin Ratio 0.8 L Urine Color Urine Clarity Urine pH Ur Specific [place] Urine Protein Urine Glucose (UA) Urine Ketones Urine Occult Blood Urine Nitrite Urine Bilirubin Urine Urobilinogen Ur Leukocyte Esterase Urine RBC Urine WBC Ur Epithelial Cells Ur Squamous Epith Cells Urine Bacteria Urine Mucus Urine Culture Comments Nasal Adenovirus (PCR) NOT DETECTED Nasal B. parapertussis DNA (PCR) NOT DETECTED Nasal Coronavir 229E PCR NOT DETECTED Nasal Coronavir HKU1 PCR NOT DETECTED Nasal Coronavir NL63 PCR NOT DETECTED Nasal Coronavir OC43 PCR NOT DETECTED Nasal Enterovir/Rhinovir PCR NOT DETECTED Nasal Influenza B PCR NOT DETECTED Nasal Influenza A PCR NOT DETECTED Nasal Parainfluen 1 PCR NOT DETECTED Nasal Parainfluen 2 PCR NOT DETECTED Nasal Parainfluen 3 PCR NOT DETECTED Nasal Parainfluen 4 PCR NOT DETECTED Nasal RSV (PCR) NOT DETECTED Nasal B.pertussis DNA PCR NOT DETECTED Nasal C.pneumoniae (PCR) NOT DETECTED Nura Human Metapneumo PCR NOT DETECTED Nasal M.pneumoniae (PCR) NOT DETECTED Nasal SARS-CoV-2 (PCR) NOT DETECTED 08/27/21 08/27/21 08/27/21 15:25 15:25 16:15 WBC RBC Hgb Hct MCV MCH MCHC RDW Plt Count MPV Neut # (Auto) Lymph # (Auto) [place] # (Auto) Eos # (Auto) Baso # (Auto) Absolute Nucleated RBC Total Counted Band Neuts % (Manual) Abnorm Lymph % (Manual) Nucleated RBC % Neutrophils # (Manual) Lymphocytes # (Manual) Monocytes # (Manual) Eosinophils # (Manual) Basophils # (Manual) Differential Comment Manual Slide Review WBC Morphology Platelet Estimate Platelet Morphology RBC Morph Micro Appear Sodium Potassium Chloride Carbon Dioxide Anion Gap BUN Creatinine Estimated GFR (MDRD) Glucose Lactic Acid 1.3 Calcium Total Bilirubin AST ALT Alkaline Phosphatase B-Natriuretic Peptide 335 H Total Protein Albumin Globulin Albumin/Globulin Ratio Urine Color DARK YELLOW Urine Clarity CLEAR Urine pH 5.5 Ur Specific [place] >=1.030 H Urine Protein 100 H Urine Glucose (UA) NEGATIVE Urine Ketones NEGATIVE Urine Occult Blood SMALL H Urine Nitrite NEGATIVE Urine Bilirubin NEGATIVE Urine Urobilinogen 0.2 (NORMAL) Ur Leukocyte Esterase NEGATIVE Urine RBC 0-5 Urine WBC 0-3 Ur Epithelial Cells FEW Transitional Ur Squamous Epith Cells RARE Squamous Urine Bacteria Rare Urine Mucus Few Strands Urine Culture Comments NOT INDICATED Nasal Adenovirus (PCR) Nasal B. parapertussis DNA (PCR) Nasal Coronavir 229E PCR Nasal Coronavir HKU1 PCR Nasal Coronavir NL63 PCR Nasal Coronavir OC43 PCR Nasal Enterovir/Rhinovir PCR Nasal Influenza B PCR Nasal Influenza A PCR Nasal Parainfluen 1 PCR Nasal Parainfluen 2 PCR Nasal Parainfluen 3 PCR Nasal Parainfluen 4 PCR Nasal RSV (PCR) Nasal B.pertussis DNA PCR Nasal C.pneumoniae (PCR) Nura Human Metapneumo PCR Nasal M.pneumoniae (PCR) Nasal SARS-CoV-2 (PCR) - Rads (name of study) chest xray Radiology: Prelim report reviewed (Right base congestion c/w either edema or infiltrate/pneumonia. ), See rad report abd CT Radiology: Prelim report reviewed (inflammation ascending colon with thick wall. Free air above liver, under diaphragm. ), Discussed with rads, See rad report PD MEDICAL DECISION MAKING - ED course Complexity details: reviewed results (abd CT showing colitis with small amount free air c/w microperforation. Would be treated medically at this point, per surgery. ), considered differential, d/w patient, d/w managing consultant clinical professor (Dr. Melgar, hospitalist, and Dr. Nye, Surgery. ) Departure - Departure Disposition: [facility] DC/Xfer Clinical Impression: Bacteremia, Generalized weakness, Acute colitis, Perforated abdominal viscus Pneumonia Qualifiers: Pneumonia type: due to unspecified organism Laterality: right Lung location: lower lobe of lung Qualified Code(s): J18.9 - Pneumonia, unspecified organism Condition: Stable Discharge Date/Time: 08/27/21 18:34
[2021-08-27] MEDS ORDERED: cefTRIAXone 1 GM in SODIUM CHLORIDE 0.9% MINIBAG 100 ML IV STA (15:06)
[2021-08-27] MEDS ORDERED: SODIUM CHLORIDE 0.9% 1,000 ML IV STA (15:08)
--- NOTE | 2021-08-27 15:29 | XRAY Report ---
PROCEDURE: Chest 1 View X-Ray INDICATIONS: chest pain TECHNIQUE: One view of the chest was acquired. COMPARISON: Chest x-ray 08/25/2021 FINDINGS: Surgical changes and devices: None. Lungs and pleura: There is interval increased appearance of pulmonary vascularity. There is appearanc e of bibasilar coarsening which has developed since the prior exam, more prominent in the right base. Mediastinum: Mediastinal contours appear normal. Heart size is enlarged. Bones and chest wall: No suspicious bony lesions. Overlying soft tissues appear unremarkable. IMPRESSION: Interval increase in pulmonary vascular suggestive of edema. Bibasilar coarsening most prominent in t he right base is present this could represent dependent edema versus developing area of airspace dise ase such as pneumonia. Reviewed by: Anna Edmonds MD on 08/27/2021 3:27 PM PDT Approved by: Anna Edmonds MD on 08/27/2021 3:27 PM PDT Station ID: [id number]
[2021-08-27 15:36] LABS: BASOPHILS % (AUTO) 0.2 %; EOSINOPHILS % (AUTO) 1.7 %; HCT - HEMATOCRIT 38.3 % (42.0-52.0); HGB - HEMOGLOBIN 12.9 g/dL (14.0-18.0); LYMPHOCYTES % (AUTO) 3.3 %; MEAN CORPUSCULAR HEMOGLOBIN 31.9 pg (27.0-31.0); MEAN CORPUSCULAR HGB CONC 33.7 g/dL (32.0-36.0); MEAN CORPUSCULAR VOLUME 94.6 fL (80.0-94.0); MEAN PLATELET VOLUME 9.8 fL (7.4-11.4); MONOCYTES % (AUTO) 4.3 %; NEUTROPHILS % (AUTO) 90.1 %; PLT - PLATELET COUNT 198 10^3/uL (130-450); RED BLOOD COUNT 4.05 10^6/uL (4.70-6.10); RED CELL DISTRIBUTION WIDTH 13.7 % (12.0-15.0); SLIDE REVIEW? Indicated; WHITE BLOOD COUNT 12.4 x10^3/uL (4.8-10.8)
[2021-08-27 15:37] LABS: ABNORMAL LYMPHS % (MANUAL) 0 %
[2021-08-27 15:45] LABS: ALBUMIN/GLOBULIN RATIO 0.8 (1.0-2.2); BILIRUBIN,TOTAL 3.3 mg/dL (0.2-1.0); CALCIUM 8.2 mg/dL (8.5-10.3); CREATININE 1.1 mg/dL (0.6-1.2); POTASSIUM 3.5 mmol/L (3.5-5.0); TOTAL PROTEIN 6.6 g/dL (6.7-8.2)
[2021-08-27] MEDS ORDERED: AZITHROMYCIN INJ 500 MG in SODIUM CHLORIDE 0.9% 250 ML IV STA (15:59)
[2021-08-27 16:18] LABS: BAND NEUTROPHILS % (MANUAL) 5 %; LYMPHOCYTES # (MANUAL) 0.7 10^3/uL (1.5-3.5); LYMPHOCYTES % (MANUAL) 6 %; MONOCYTES # (MANUAL) 0.4 10^3/uL (0.0-1.0); NEUTROPHILS # (MANUAL) 11.3 10^3/uL (1.5-6.6)
[2021-08-27 16:23] LABS: PLATELET ESTIMATE, MANUAL NORMAL (130-450,000) (NORMAL); PLATELET MORPHOLOGY NORMAL APPEARANCE (NORMAL); RBC MORPHOLOGY (MULTIPLE) 1+ ANISOCYTOSIS (NORMAL)
[2021-08-27 16:24] LABS: WBC MORPHOLOGY (MULTIPLE) 1+ DOHLE BODIES (NORMAL)
[2021-08-27 16:38] LABS: BILIRUBIN,URINE NEGATIVE (NEGATIVE); GLUCOSE, URINE (UA) NEGATIVE (NEGATIVE); KETONES,URINE (UA) NEGATIVE (NEGATIVE); LEUKOCYTE ESTERASE, URINE NEGATIVE (NEGATIVE); NITRITE,URINE NEGATIVE (NEGATIVE); OCCULT BLOOD,URINE SMALL (NEGATIVE); PH,URINE 5.5 PH (5.0-7.5); PROTEIN,URINE 100 mg/dL (NEGATIVE); UROBILINOGEN,URINE 0.2 (NORMAL) E.U./dL (NORMAL)
[2021-08-27 16:40] LABS: DIFFERENTIAL COMMENT MANUAL DIFFERENTIAL
[2021-08-27 16:41] LABS: CLARITY,URINE CLEAR (CLEAR)
[2021-08-27 16:42] LABS: B. PARAPERTUSSIS- RESP PCR PAN NOT DETECTED; B. PERTUSSIS- RESP PCR PANEL NOT DETECTED; C. PNEUMONIAE- RESP PCR PANEL NOT DETECTED; CORONAVIRUS 229E-RESP PCR NOT DETECTED; CORONAVIRUS HKU1-RESP PCR NOT DETECTED; CORONAVIRUS NL63-RESP PCR NOT DETECTED; CORONAVIRUS OC43-RESP PCR NOT DETECTED; HUMAN METAPNEUMOVIRUS NOT DETECTED; INFLUENZA A- RESP PCR PANEL NOT DETECTED; INFLUENZA B - RESP PCR PANEL NOT DETECTED; M. PNEUMONIAE- RESP PCR PANEL NOT DETECTED; PARAINFLUENZA VIRUS 1 NOT DETECTED; PARAINFLUENZA VIRUS 2 NOT DETECTED; PARAINFLUENZA VIRUS 3 NOT DETECTED; PARAINFLUENZA VIRUS 4 NOT DETECTED; RHINOVIRUS/ENTEROVIRUS NOT DETECTED; RSV- RESP PCR PANEL NOT DETECTED; SARS-CoV-2 -RESP PCR PANEL NOT DETECTED
[2021-08-27 16:47] LABS: EPITHELIAL CELLS,UR FEW Transitional /HPF (<= Few); RBC,URINE 0-5 /HPF (0-5); SQUAMOUS EPITHELIAL CELL,UR RARE Squamous (<= Few); WBC,URINE 0-3 /HPF (0-3)
[2021-08-27 16:48] LABS: BACTERIA,URINE Rare /HPF (None Seen); MUCUS,URINE Few Strands
--- NOTE | 2021-08-27 17:20 | CT Report ---
PROCEDURE: Abdomen/Pelvis WO INDICATIONS: abd pain; positive blood culture TECHNIQUE: Noncontrast 5 mm thick sections acquired from the diaphragms to the symphysis. 5 mm coronal and sagi ttal reformats were then performed. For radiation dose reduction, the following was used: automated exposure control, adjustment of mA and/or kV according to patient size. COMPARISON: None. FINDINGS: Image quality: There is motion artifact limiting evaluation. Beam hardening artifact is also present from the bilateral upper extremities. ABDOMEN: Lung bases: There is a small right pleural effusion with associated compressive atelectasis as well as patchy consolidation within the right lower and middle lobes. Mild dependent atelectasis also demo nstrated in the left lower lobe as well as a small region of mild consolidation inferiorly. Heart siz e is enlarged. There is a trace pericardial effusion. There is coronary arterial vascular calcificati on. Solid organs: Noncontrast evaluation of the liver demonstrates no discrete mass lesion. Gallbladder i s distended without calcified gallstones or wall thickening. Pancreas is normal in contours. No adre nal nodules. Spleen is normal in size. Kidneys demonstrate no hydronephrosis. Multiple bilateral scott al cysts are demonstrated. Nonspecific perinephric stranding also demonstrated bilaterally. Peritoneum and bowel: There is a small amount of subdiaphragmatic free air in the upper quadrant. A small amount of intraperineal free fluid is also present predominantly in the right anterior pararena l space and right paracolic gutter. There is segmental wall thickening of the ascending colon with associated fat stranding consistent wi th a colitis. There is mild distention of multiple small bowel loops in the lower abdomen with scatte red air-fluid levels but without a discrete transition point to suggest obstruction. There is marked stool distention in the rectum with moderate distention in the sigmoid and descending colon compatibl e with constipation and suggestive of stool impaction. Nodes and vessels: No retroperitoneal or mesenteric adenopathy by size criteria. Aorta and inferior vena cava are normal in caliber. Miscellaneous: No ventral hernias. PELVIS: Genitourinary: Bladder wall thickness is normal. Miscellaneous: No inguinal hernias or adenopathy. Bones: No suspicious bony lesions. No vertebral body compression fractures. IMPRESSION: 1. Small amount of right subdiaphragmatic pneumoperitoneum likely reflects perforated viscus. Given t he segmental inflammatory changes within the descending colon right upper quadrant, a small colonic p erforation is suspected. No definite free air identified along the stomach or duodenum to suggest a p erforated duodenal or gastric ulcer. 2. Small right pleural effusion with associated compressive atelectasis as well as consolidation sugg estive of pneumonia. 3. Small amount of intraperitoneal free fluid with a right-sided predominance may also be related to perforation. Findings discussed Dr. Cox on 08/27/2021 at 5:10 PM. 4. Marked stool distention in the rectum and distal colon compatible with constipation and possible i mpaction. Reviewed by: Davion Wu MD on 08/27/2021 5:18 PM PDT Approved by: Davion Wu MD on 08/27/2021 5:18 PM PDT Station ID: [id number]
[2021-08-27] MEDS ORDERED: PIPERACILLIN/TAZOBACTAM 3.375 GM in SODIUM CHLORIDE 0.9% MINIBAG 100 ML IV STA (17:36)
--- NOTE | 2021-08-27 17:39 | CONSULTATION NOTE ---
Referring Provider Name of Referring Provider:: Augustine Cox Consult Date: 08/27/21 Chief Complaint - Chief Complaint Chief Complaint: Not feeling well History of Present Illness - Admitted From Admitted From:: ED - History Obtained From Records Reviewed: old records History obtained from: Providers and old records Exam Limitations: Patient mental status - History of Present Illness HPI Comment/Other: Zaki is an unfortunate 80-year-old gentleman who is a resident of [facility].He is well-known to our hospitalist service here.Has a significant past medical history and has been seen here many times.He was seen in our ER a couple of days ago with complaint of just not feeling well.He had some labs drawn that were sort of nonspecific and in the process he also had blood cultures drawn.Blood cultures grew gram-negative rods and so he was called to return to the emergency room for evaluation.He complained of a little bit of cough and shortness of breath.The chest x-ray showed perhaps a little bit of an ill- defined infiltrate on one side.CT scan of the abdomen and pelvis revealed colitis with a small amount of free air and free fluid in the abdomen.It also revealed stool impaction.I have been consulted regarding surgical management. History - Past Medical History Cardiovascular: reports: Hypertension, High cholesterol Respiratory: reports: None Neuro: reports: Dementia Endocrine/Autoimmune: reports: None GI: reports: None Psych: reports: Other MRSA Hx?: No - Family & Social History Living arrangement: Assisted living ([place]) Living Situation: With caregiver(s) - POLST Patient has POLST: No POLST Status: POA is court appointed Meds/Allgy - Home Medications Home Medications: Ambulatory Orders Medication Instructions Recorded Confirmed Aspirin [Children's Aspirin] 81 mg PO DAILY 12/28/19 08/27/21 Atorvastatin Calcium 40 mg PO DAILY 12/28/19 08/27/21 Acetaminophen 650 mg PO Q4HR PRN 07/04/20 08/27/21 Cyanocobalamin (Vitamin B-12) 1 tab PO DAILY 07/04/20 08/27/21 [Vitamin B-12 (1000 mcg sublingual)] Metoprolol Tartrate 25 mg PO BID 07/04/20 08/27/21 Quetiapine Fumarate 25 mg PO BID 07/04/20 08/27/21 Sennosides/Docusate Sodium [Senna 1 tab PO BID PRN 07/04/20 08/27/21 Plus 8.6-50 mg Tablet] Multivit-Min/Folic/Vit K/Lycop 1 each PO DAILY 08/27/21 08/27/21 [One Daily Men's 50 Plus D3 Tab] - Allergies Allergies/Adverse Reactions: Allergies Allergy/AdvReac Type Severity Reaction Status Date / Time rosuvastatin [From Crestor] Allergy Unknown Verified 08/25/21 22:03 Review of Systems - Other Findings Other Findings: Unable to obtain due to patient's mental status Exam - Vital Signs Reviewed Vital Signs: Yes Vital Signs: Vital Signs x48h Temp Pulse Resp BP Pulse Ox 08/27/21 17:04 97.8 C H 74 26 H 124/69 95 08/27/21 16:00 79 25 H 131/73 H 95 08/27/21 14:53 100.3 C H 74 26 H 122/85 H 94 - Physical Exam General Appearance: positive: No acute distress, Lethargic Eyes Bilateral: positive: Normal inspection, PERRL, EOMI Respiratory: positive: Rhonchi, Other (Significant upper airway noise.) Cardiovascular: positive: Regular rate & rhythm Abdomen: positive: Nml bowel sounds, Tenderness (Significant tenderness to palpation in the left lower quadrant.Minimal voluntary guarding. No true rebound.), Guarding. negative: Rebound Skin: positive: Pallor Extremities: positive: No pedal edema Conclusion/Plan - Problem List (1) Acute colitis Conclusion/Plan: 1. Likely related to impaction. Would recommend manual disimpaction with out use of enemas. 2. Start IV antibiotic therapy. Hopefully he will respond to this and we can avoid colostomy. Would recommend following clinically and if he improves would repeat CT scan in 3 days. If not, we will reconsider Batista's procedure. - Lab Results Fish Bones: 08/27/21 15:25 08/27/21 15:25 - Diagnostic Imaging Results Diagnostic Imaging Results Comments: PT NAME: ZAKI HOOD MR#: [id number] REG ER/ED AGE: 80 CI DT/TM: 08/27/21 PCP: : 1940 ATT: SEX: M ORD: Quan Cox MD EXAM: [id number] CT/ABPEWO ([id number]) PROCEDURE: Abdomen/Pelvis WO INDICATIONS: abd pain; positive blood culture TECHNIQUE: Noncontrast 5 mm thick sections acquired from the diaphragms to the symphysis. 5 mm coronal and sagittal reformats were then performed. For radiation dose reduction, the following was used: automated exposure control, adjustment of mA and/or kV according to patient size. COMPARISON: None. FINDINGS: Image quality: There is motion artifact limiting evaluation. Beam hardening artifact is also present from the bilateral upper extremities. ABDOMEN: Lung bases: There is a small right pleural effusion with associated compressive atelectasis as well as patchy consolidation within the right lower and middle lobes. Mild dependent atelectasis also demonstrated in the left lower lobe as well as a small region of mild consolidation inferiorly. Heart size is enlarged. There is a trace pericardial effusion. There is coronary arterial vascular calcification. Solid organs: Noncontrast evaluation of the liver demonstrates no discrete mass lesion. Gallbladder is distended without calcified gallstones or wall thickening. Pancreas is normal in contours. No adrenal nodules. Spleen is normal in size. Kidneys demonstrate no hydronephrosis. Multiple bilateral renal cysts are demonstrated. Nonspecific perinephric stranding also demonstrated bilaterally. Peritoneum and bowel: There is a small amount of subdiaphragmatic free air in the upper quadrant. A small amount of intraperineal free fluid is also present predominantly in the right anterior pararenal space and right paracolic gutter. There is segmental wall thickening of the ascending colon with associated fat stranding consistent with a colitis. There is mild distention of multiple small bowel loops in the lower abdomen with scattered air-fluid levels but without a discrete transition point to suggest obstruction. There is marked stool distention in the rectum with moderate distention in the sigmoid and descending colon compatible with constipation and suggestive of stool impaction. Nodes and vessels: No retroperitoneal or mesenteric adenopathy by size criteria. Aorta and inferior vena cava are normal in caliber. Miscellaneous: No ventral hernias. PELVIS: Genitourinary: Bladder wall thickness is normal. Miscellaneous: No inguinal hernias or adenopathy. Bones: No suspicious bony lesions. No vertebral body compression fractures. IMPRESSION: 1. Small amount of right subdiaphragmatic pneumoperitoneum likely reflects perforated viscus. Given the segmental inflammatory changes within the descending colon right upper quadrant, a small colonic perforation is suspected. No definite free air identified along the stomach or duodenum to suggest a perforated duodenal or gastric ulcer. 2. Small right pleural effusion with associated compressive atelectasis as well as consolidation suggestive of pneumonia. 3. Small amount of intraperitoneal free fluid with a right-sided predominance may also be related to perforation. Findings discussed Dr. Cox on 08/27/2021 at 5:10 PM. 4. Marked stool distention in the rectum and distal colon compatible with constipation and possible impaction. Reviewed by: Davion Wu MD on 08/27/2021 5:18 PM PDT Approved by: Davion Wu MD on 08/27/2021 5:18 PM PDT
[2021-08-27] MEDS ORDERED: ONDANSETRON ODT 4 MG TABLET TL PRN (17:44)
[2021-08-27] MEDS ORDERED: MORPHINE 2 MG/ML CARPUJECT IVP PRN (17:44)
[2021-08-27] MEDS ORDERED: ONDANSETRON 4 MG/2 ML VIAL IVP PRN (17:44)
[2021-08-27] MEDS ORDERED: METOPROLOL 5 MG/5 ML VIAL IVP PRN (17:48)
[2021-08-27] MEDS ORDERED: MINERAL OIL 473 ML BOTTLE PO PRN (17:52)
--- NOTE | 2021-08-27 17:53 | HISTORY & PHYSICAL EXAMINATION ---
Chief Complaint - Chief Complaint Chief Complaint: Gram-negative bacteremia History of Present Illness - Admitted From Admitted From:: Assisted living facility via ambulance - History Obtained From Records Reviewed: [facility] and [facility] History obtained from: Dr. 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 He has been living at the assisted living facility since approximately March 2020. He had been living in a hotel room, found in [facility], taken to [facility] in March 2020. From [place] he was discharged to the assisted living facility. He has dementia with a ship officer. Alcohol abuse was present until March 2020. He is a former smoker who quit smoking around the age of 42. He has high blood pressure, hyperlipidemia, chronically elevated liver enzymes. He has a history of numerous falls. He tries to walk with a walker or a cane if he remembers. He has been seen in the emergency room a couple of times or treated for UTIs in the past year. He was in his usual state of health when the emergency room felt that he was more lethargic than usual. No specific complaints of fever, chills, diarrhea, abdominal pain. They sent him to the emergency room on August 25 where he was evaluated by Dr. Kemp. He was afebrile. Well-nourished. A delayed speech latency and delay in execution of motor commands. But no respiratory distress, clear lungs, benign abdomen. His usual creatinine is 1.4 and he was 1.1. White cell count was 18.5. Urinalysis had a moderate amount of blood, rare squamous cells, rare bacteria. He is inferior vena cava was interrogated via ultrasound and he was found to be significantly dehydrated. He responded to IV fluids. As such she was sent back to his assisted living facility. Blood cultures were done that night and came back positive for gram-negative bacilli. Preliminary report but via PCR does not tell us what it is. Cannot be detected. As such she was asked to come back to the emergency room. After being seen in the emergency room here, he has a low-grade temperature of 100.3. He is normotensive. Not tachycardic. Mildly tachypneic at 26. 94% on room air. He continues to be a cooperative demented elderly gentleman. He has clear lungs. Some conjunctival redness. Normal bowel sounds and nondistended. Repeat evaluation shows him to have a white cell count is 12.4. A BUN of 25 and a creatinine of 1.1. This gentleman has a history of chronically elevated liver enzymes in the past and his current bilirubin is 3.3, AST 58. Lactic acid is 1.3. BNP 335. Urinalysis is transitional cells as well as squamous cells. Dr. Cox spoke to the hospitalist service asking for tentative admission. We requested a CT of the abdomen to make sure he did not have urinary obstruction and we found him to have a surprising report of free air under the diaphragm. General surgery was consulted and found her to have some left lower quadrant tenderness, significant constipation, and most likely a small perforation resulting in free air under the diaphragm. We are being asked to admit the patient with general surgery to consult. They have asked for single agent Zosyn to be started. History - Past Medical History Cardiovascular: reports: Hypertension, High cholesterol, Coronary artery disease (on CT scan calcium calculation) Respiratory: reports: None Neuro: reports: Dementia, Other (Multiple falls w gait ataxia) Endocrine/Autoimmune: reports: None GI: reports: Colon polyps, Hepatitis : reports: Incontinence, Renal insuffiency (CKD), Frequency, Kidney stones HEENT: reports: Chronic vision loss Psych: reports: Other (depression) Musculoskeletal: reports: Osteoarthritis, Gout Derm: reports: Other (actinic keratosis) MRSA Hx?: No - Past Surgical History General: reports: Colonoscopy - Family & Social History Family History Comment/Other: Father at age 59 after alcohol abuse with congestive heart failure. Mother of Alzheimer's disease at the age of 89. 1 brother has had heart disease with bypass surgery. 3 children. One daughter and 2 sons. Does not know what their history is Living arrangement: Assisted living ([facility]) Living Situation: With caregiver(s) Social History Notes: Lives in the [facility] was going back and forth between here and there. Due to dementia they moved to assisted living facility somewhere in 2018. She of dementia and a prolonged illness in December 2019. He then left the assisted facility and went to go live in a hotel. That is where he was found in [facility]. Transferred to [place] for evaluation and discharged to an assisted living facility that has been living at since then. He is an ex-smoker that smoked 1 pack/day for 24 years and quit at the age of 42. Up until his placement in the residential facility he likes to drink vodka, wine, and beer. Family stated that he had problems with alcohol abuse. No history of recreational substance abuse. - Substance History Use: Uses substance without health or social issues: NONE Abuse: Recurrent use of substance despite neg consequences: NONE Dependence: Experiences withdrawal or developed tolerances: NONE - POLST Patient has POLST: No POLST Status: POA is court appointed Meds/Allgy - Home Medications Home Medications: Ambulatory Orders Medication Instructions Recorded Confirmed Aspirin [Children's Aspirin] 81 mg PO DAILY 12/28/19 08/27/21 Atorvastatin Calcium 40 mg PO DAILY 12/28/19 08/27/21 Acetaminophen 650 mg PO Q4HR PRN 07/04/20 08/27/21 Cyanocobalamin (Vitamin B-12) 1 tab PO DAILY 07/04/20 08/27/21 [Vitamin B-12 (1000 mcg sublingual)] Metoprolol Tartrate 25 mg PO BID 07/04/20 08/27/21 Quetiapine Fumarate 25 mg PO BID 07/04/20 08/27/21 Sennosides/Docusate Sodium [Senna 1 tab PO BID PRN 07/04/20 08/27/21 Plus 8.6-50 mg Tablet] Multivit-Min/Folic/Vit K/Lycop 1 each PO DAILY 08/27/21 08/27/21 [One Daily Men's 50 Plus D3 Tab] - Allergies Allergies/Adverse Reactions: Allergies Allergy/AdvReac Type Severity Reaction Status Date / Time rosuvastatin [From Crestor] Allergy Unknown Verified 08/25/21 22:03 Review of Systems - Other Findings Other Findings: Unable to obtain in this mario but demented gentleman. He is aware that he is in the hospital but does not know where he is or why he is here. Review of the chart through his primary care provider office so is a gentleman who abruptly lost quite a bit of functionality between 2019 and now. Mini-Mental status exam was 23 out of 30 in early 2019. By the time he had his ship officer a ppointed he was 3 out of 30. He is supposed to be using a cane or walker. Has multiple falls. No behavioral disorders. He has urinary incontinence. UTIs. Prior Level of Functionality: Independent with ambulation. Relies on staff to make sure he gets his meds, is fed, and uses a cane or walker Exam - Vital Signs Reviewed Vital Signs: Yes Vital Signs: Vital Signs x48h Temp Pulse Resp BP Pulse Ox 08/27/21 17:04 97.8 C H 74 26 H 124/69 95 08/27/21 16:00 79 25 H 131/73 H 95 08/27/21 14:53 100.3 C H 74 26 H 122/85 H 94 - Physical Exam General Appearance: positive: Mild distress, Lethargic Eyes Bilateral: positive: PERRL, EOMI ENT: positive: No signs of dehydration Neck: negative: No JVD, Stiff neck Respiratory: positive: No respiratory distress, Other (Chest x-ray states w orsening pulmonary edema from his visit to the ER to now, and he has diminished breath sounds at the bases but no crackles or respiratory distress. No cough during the exam.). negative: Wheezes, Rales, Rhonchi Cardiovascular: positive: Regular rate & rhythm, Systolic murmur (Left lower sternal border). negative: Gallop/S4, Friction rub Peripheral Pulses: positive: 1+ Abdomen: positive: No organomegaly, Tenderness, Abnml bowel sounds (Hypoactive). negative: Guarding, Rebound, Hepatomegaly Skin: positive: Warm, Dry Extremities: positive: Non-tender, No pedal edema Neurologic/Psychiatric: positive: CN's nml (2-12), Motor nml (I do not stand him up to walk him. 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 No focal deficits.), Disoriented to place, Disoriented to time Conclusion/Plan - Problem List (1) Perforated abdominal viscus Conclusion/Plan: General surgery has already seen the patient and shared with me that they feel that he has quite a bit of hardened, impacted stool in the rectal vault and lower bowel. This is most likely what caused the perforation. They do not want enemas. But they do want manual disimpaction. They are also requesting single agent Zosyn. Plan: Single agent Zosyn Daily CBC CT of the abdomen and pelvis in 3 days Surgical consult already done and to follow patient with us (2) Bacteremia Conclusion/Plan: Gram-negative bacteremia. Differential diagnosis before I knew the results of the CT would include bowel, bladder, rarely lung in a patient that had not been already hospitalized. At this point in time is been narrowed down to perforated viscus. Plan: Repeat blood cultures Plan for minimum of 2 weeks of therapy starting from the time of negative blood cultures (3) Acute metabolic encephalopathy Conclusion/Plan: This mario gentleman is unfortunately already with baseline dementia. Has a ship officer. I suspect that his acute encephalopathy that the assisted living facility is describing is due to the perforated viscus and infection. Once he has been hydrated, received antibiotics, will reassess to see if he improves with his lethargy. I suspect he will. (4) Elevated liver enzymes Conclusion/Plan: In review of his past medical history this is a chronic problem for him. I have noted that the CT scan from [place] in March 2020 did not show cirrhosis, esophageal varices. He did have sludge in the gallbladder. Plan: Hepatitis panel for completeness sake of work-up (5) Pneumonia Conclusion/Plan: Although he is asymptomatic on physical exam, he does have pneumonia on both chest x-ray as well as CT. He is received Rocephin and azithromycin to start out within the ER but now that we know he has a perforated bowel he is on single agent Zosyn. I suspect that he may be lethargic and aspirating. Zosyn should cover him for anaerobic bacteria. I will add azithromycin for 3 days only. Qualifiers: Pneumonia type: due to unspecified organism Laterality: right Lung location: lower lobe of lung Qualified Code(s): J18.9 - Pneumonia, unspecified organism (6) Enlarged heart Conclusion/Plan: Noted on CT scan. He did have an echocardiogram done at [place] in March 2020 but the discharge summary that I read did not note the results. plan: Echocardiogram Get the echo report from [place] Monitor intake and output to make sure we do not fluid overload him (7) Dementia associated with alcoholism Conclusion/Plan: In reviewing the medical record he has a gradually progressive dementia. Signi ficant drop in cognitive function between 2018 and April 2021 when a ship officer was appointed. 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 However the ship officer came in April 2021 and I assume that that supersedes that DURABLE POWER OF SENIOR GAMES TECHNICIAN. I will have to call the residential facility/assisted living facility to find out who that person is and make contact with him. 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 His lab work has not been remarkable for severe acute kidney injury. Plan: Hydration with IV fluids. Check labs daily. Try and avoid fluid overload especially in view of the fact of an enlarged heart on today's CT scan - Lab Results Lab results reviewed: Yes Fish Bones: 08/27/21 15:25 08/27/21 15:25 - Diagnostic Imaging Results Diagnostic Imaging Results: positive: Final report reviewed - EKG Results EKG Interpreted Independently: No Core Measures - Anticipated LOS I expect patient to be DC'd or transferred within 96 hours.: Yes - DVT/VTE - Prophylaxis VTE/DVT Device ordered at admit?: Yes
[2021-08-27] MEDS: LACTATED RINGERS 1,000 ML IV SCH (19:32)
[2021-08-27] MEDS ORDERED: PIPERACILLIN/TAZOBACTAM 3.375 GM in SODIUM CHLORIDE 0.9% MINIBAG 100 ML IV SCH (23:00)
[2021-08-28] MEDS: SODIUM CHLORIDE FLUSH 0.9% 10 ML SYRINGE IVP SCH ×4 (02:16→23:42)
[2021-08-28] MEDS: PIPERACILLIN/TAZOBACTAM 3.375 GM in SODIUM CHLORIDE 0.9% MINIBAG 100 ML IV SCH ×3 (04:41→19:45)
[2021-08-28 04:53] LABS: BASOPHILS % (AUTO) 0.2 %; EOSINOPHILS % (AUTO) 0.1 %; HCT - HEMATOCRIT 34.4 % (42.0-52.0); HGB - HEMOGLOBIN 11.6 g/dL (14.0-18.0); LYMPHOCYTES # (AUTO) 0.5 10^3/uL (1.5-3.5); LYMPHOCYTES % (AUTO) 3.7 %; MEAN CORPUSCULAR HEMOGLOBIN 31.7 pg (27.0-31.0); MEAN CORPUSCULAR HGB CONC 33.7 g/dL (32.0-36.0); MONOCYTES # (AUTO) 0.8 10^3/uL (0.0-1.0); MONOCYTES % (AUTO) 6.3 %; NEUTROPHILS # (AUTO) 10.7 10^3/uL (1.5-6.6); NEUTROPHILS % (AUTO) 89.3 %; PLT - PLATELET COUNT 201 10^3/uL (130-450); RED BLOOD COUNT 3.66 10^6/uL (4.70-6.10); RED CELL DISTRIBUTION WIDTH 13.7 % (12.0-15.0)
[2021-08-28 05:01] LABS: CALCIUM 7.7 mg/dL (8.5-10.3)
[2021-08-28] MEDS: LACTATED RINGERS 1,000 ML IV SCH ×3 (05:15→22:49)
--- NOTE | 2021-08-28 09:03 | PROVIDER PROGRESS NOTE ---
Subjective - Prog Note Date Prog Note Date: 08/28/21 Prog Note Time: 09:01 - Subjective Subjective: he is awake, alert, talkative but slow responses and easily confused. RN worried about fluid overload since we need to give K riders in face of NPO and lungs are more "gurgly" patient denies sob but he also says he has no pain in spite of pain and grimace w palpation of RLQ. Current Medications - Current Medications Current Medications: Active Medications Docusate Sodium (Docusate Sodium 250 Mg Capsule) 250 mg PO DAILY [facility] Enoxaparin Sodium (Enoxaparin 40 Mg/0.4 Ml Syringe) 40 mg SUBQ DAILY [facility] Furosemide (Furosemide 20 Mg/2 Ml Vial) 20 mg IVP Q48H [facility] Piperacillin Sod/Tazobactam (Sod 3.375 gm/ Sodium Chloride) 100 mls @ 25 mls/hr IV Q8H [facility] Last Infusion: 08/28/21 09:02 Dose: Infused Documented by: Potassium Chloride (Potassium Chloride) 10 meq in 100 mls @ 100 mls/hr IV Q1H [facility] Stop: 08/28/21 13:59 Azithromycin 500 mg/ Sodium (Chloride) 250 mls @ 250 mls/hr IV DAILY [facility] Stop: 08/30/21 09:59 Lactated Ringer's (Lr) 1,000 mls @ 85 mls/hr IV .[id number] [facility] Metoprolol Tartrate (Metoprolol 5 Mg/5 Ml Vial) 5 mg IVP Q6H PRN PRN Reason: Hypertensive Emergency Mineral Oil (Mineral Oil 473 Ml Bottle) 30 ml PO DAILY PRN PRN Reason: Constipation Morphine Sulfate (Morphine 2 Mg/Ml Carpuject) 2 mg IVP Q2HR PRN PRN Reason: Pain 8 to 10 Ondansetron HCl (Ondansetron Odt 4 Mg Tablet) 4 mg TL Q6HR PRN PRN Reason: Nausea / Vomiting Ondansetron HCl (Ondansetron 4 Mg/2 Ml Vial) 4 mg IVP Q6HR PRN PRN Reason: Nausea / Vomiting Sodium Chloride (Sodium Chloride Flush 0.9% 10 Ml Syringe) 10 ml IVP PRN PRN PRN Reason: NEEDED PER PROVIDER ORDERS Sodium Chloride (Sodium Chloride Flush 0.9% 10 Ml Syringe) 10 ml IVP 0100,0900,1700 [facility] Last Admin: 08/28/21 02:16 Dose: Not Given Documented by: Aspirin [Children's Aspirin] 81 mg PO DAILY 12/28/19 Atorvastatin Calcium 40 mg PO DAILY 12/28/19 Acetaminophen 650 mg PO Q4HR PRN 07/04/20 Cyanocobalamin (Vitamin B-12) [Vitamin B-12 (1000 mcg sublingual)] 1 tab PO DAILY 07/04/20 Metoprolol Tartrate 25 mg PO BID 07/04/20 Quetiapine Fumarate 25 mg PO BID 07/04/20 Sennosides/Docusate Sodium [Senna Plus 8.6-50 mg Tablet] 1 tab PO BID PRN 07/04/20 Multivit-Min/Folic/Vit K/Lycop [One Daily Men's 50 Plus D3 Tab] 1 each PO DAILY 08/27/21 Objective - Vital Signs/Intake & Output Reviewed Vital Signs: Yes Vital Signs: Vital Signs x48h Temp Pulse Resp BP Pulse Ox 08/28/21 08:20 37.2 C 64 20 143/68 H 96 Intake & Output: Intake & Output 08/25/21 08/26/21 08/27/21 08/28/21 23:59 23:59 23:59 23:59 Intake Total 1450 913.333 Balance 1450 913.333 - Objective General Appearance: positive: No acute distress, Alert, Other (he is laying in bed, thrown off covers, diaper and naked. says he's hot. denies pain) Eyes Bilateral: positive: PERRL, EOMI ENT: positive: Other (disheveled and full jeffery) Neck: positive: No JVD. negative: Stiff neck Respiratory: positive: No respiratory distress, Rhonchi. negative: Wheezes, Rales Cardiovascular: positive: Regular rate & rhythm. negative: Gallop/S4, Friction rub Abdomen: positive: No distention, Tenderness (now in RLQ, yesterday was LLQ but he is soft, no firm or rigid), Abnml bowel sounds (hypoactive bowel sounds). negative: Guarding, Rebound Skin: positive: No rash, Warm, Dry Extremities: positive: Full ROM, No pedal edema Neurologic/Psychiatric: positive: CN's nml (2-12), Motor nml, Disoriented to place, Disoriented to time, Other (slow response time. I don't know his baseline so may still be mildly encephalopathic) - Lab Results Fish Bones: 08/28/21 04:27 08/28/21 04:27 Other Labs: Lab Results x24hrs 08/28/21 08/28/21 08/27/21 Range/Units 04:27 04:27 16:15 WBC 12.0 H (4.8-10.8) x10^3/uL RBC 3.66 L (4.70-6.10) 10^6/uL Hgb 11.6 L (14.0-18.0) g/dL Hct 34.4 L (42.0-52.0) % MCV 94.0 (80.0-94.0) fL MCH 31.7 H (27.0-31.0) pg MCHC 33.7 (32.0-36.0) g/dL RDW 13.7 (12.0-15.0) % Plt Count 201 (130-450) 10^3/uL MPV 10.0 (7.4-11.4) fL Neut # (Auto) 10.7 H Lymph # (Auto) 0.5 L [place] # (Auto) 0.8 Eos # (Auto) 0.0 Baso # (Auto) 0.0 Absolute Nucleated RBC 0.00 Total Counted Band Neuts % (Manual) (0 - 10) % Abnorm Lymph % (Manual) % Nucleated RBC % 0.0 Neutrophils # (Manual) (1.5-6.6) 10^3/uL Lymphocytes # (Manual) (1.5-3.5) 10^3/uL Monocytes # (Manual) (0.0-1.0) 10^3/uL Eosinophils # (Manual) (0-0.7) 10^3/uL Basophils # (Manual) (0-0.1) 10^3/uL Differential Comment Manual Slide Review WBC Morphology (NORMAL) Platelet Estimate (NORMAL) Platelet Morphology (NORMAL) RBC Morph Micro Appear (NORMAL) Sodium 140 (135-145) mmol/L Potassium 3.0 L (3.5-5.0) mmol/L Chloride 108 (101-111) mmol/L Carbon Dioxide 22 (21-32) mmol/L Anion Gap 10.0 (6-13) BUN 23 H (6-20) mg/dL Creatinine 1.0 (0.6-1.2) mg/dL Estimated GFR (MDRD) 72 L (>89) Glucose 149 H (70-100) mg/dL Lactic Acid (0.5-2.2) mmol/L Calcium 7.7 L (8.5-10.3) mg/dL Total Bilirubin (0.2-1.0) mg/dL AST (10-42) IU/L ALT (10-60) IU/L Alkaline Phosphatase (42-121) IU/L B-Natriuretic Peptide (5-100) pg/mL Total Protein (6.7-8.2) g/dL Albumin (3.2-5.5) g/dL Globulin (2.1-4.2) g/dL Albumin/Globulin Ratio (1.0-2.2) Urine Color DARK YELLOW Urine Clarity CLEAR (CLEAR) Urine pH 5.5 (5.0-7.5) PH Ur Specific [place] >=1.030 H (1.002-1.030) Urine Protein 100 H (NEGATIVE) mg/dL Urine Glucose (UA) NEGATIVE (NEGATIVE) mg/dL Urine Ketones NEGATIVE (NEGATIVE) mg/dL Urine Occult Blood SMALL H (NEGATIVE) Urine Nitrite NEGATIVE (NEGATIVE) Urine Bilirubin NEGATIVE (NEGATIVE) Urine Urobilinogen 0.2 (NORMAL) (NORMAL) E.U./dL Ur Leukocyte Esterase NEGATIVE (NEGATIVE) Urine RBC 0-5 (0-5) /HPF Urine WBC 0-3 (0-3) /HPF Ur Epithelial Cells FEW Transitional (<= Few) /HPF Ur Squamous Epith Cells RARE Squamous (<= Few) Urine Bacteria Rare (None Seen) /HPF Urine Mucus Few Strands Urine Culture Comments NOT INDICATED Nasal Adenovirus (PCR) Nasal B. parapertussis DNA (PCR) Nasal Coronavir 229E PCR Nasal Coronavir HKU1 PCR Nasal Coronavir NL63 PCR Nasal Coronavir OC43 PCR Nasal Enterovir/Rhinovir PCR Nasal Influenza B PCR Nasal Influenza A PCR Nasal Parainfluen 1 PCR Nasal Parainfluen 2 PCR Nasal Parainfluen 3 PCR Nasal Parainfluen 4 PCR Nasal RSV (PCR) Nasal B.pertussis DNA PCR Nasal C.pneumoniae (PCR) Nura Human Metapneumo PCR Nasal M.pneumoniae (PCR) Nasal SARS-CoV-2 (PCR) 08/27/21 08/27/21 08/27/21 Range/Units 15:25 15:25 15:25 WBC (4.8-10.8) x10^3/uL RBC (4.70-6.10) 10^6/uL Hgb (14.0-18.0) g/dL Hct (42.0-52.0) % MCV (80.0-94.0) fL MCH (27.0-31.0) pg MCHC (32.0-36.0) g/dL RDW (12.0-15.0) % Plt Count (130-450) 10^3/uL MPV (7.4-11.4) fL Neut # (Auto) Lymph # (Auto) [place] # (Auto) Eos # (Auto) Baso # (Auto) Absolute Nucleated RBC Total Counted Band Neuts % (Manual) (0 - 10) % Abnorm Lymph % (Manual) % Nucleated RBC % Neutrophils # (Manual) (1.5-6.6) 10^3/uL Lymphocytes # (Manual) (1.5-3.5) 10^3/uL Monocytes # (Manual) (0.0-1.0) 10^3/uL Eosinophils # (Manual) (0-0.7) 10^3/uL Basophils # (Manual) (0-0.1) 10^3/uL Differential Comment Manual Slide Review WBC Morphology (NORMAL) Platelet Estimate (NORMAL) Platelet Morphology (NORMAL) RBC Morph Micro Appear (NORMAL) Sodium 139 (135-145) mmol/L Potassium 3.5 (3.5-5.0) mmol/L Chloride 105 (101-111) mmol/L Carbon Dioxide 24 (21-32) mmol/L Anion Gap 10.0 (6-13) BUN 25 H (6-20) mg/dL Creatinine 1.1 (0.6-1.2) mg/dL Estimated GFR (MDRD) 65 L (>89) Glucose 150 H (70-100) mg/dL Lactic Acid 1.3 (0.5-2.2) mmol/L Calcium 8.2 L (8.5-10.3) mg/dL Total Bilirubin 3.3 H (0.2-1.0) mg/dL AST 58 H (10-42) IU/L ALT 46 (10-60) IU/L Alkaline Phosphatase 44 (42-121) IU/L B-Natriuretic Peptide 335 H (5-100) pg/mL Total Protein 6.6 L (6.7-8.2) g/dL Albumin 3.0 L (3.2-5.5) g/dL Globulin 3.6 (2.1-4.2) g/dL Albumin/Globulin Ratio 0.8 L (1.0-2.2) Urine Color Urine Clarity (CLEAR) Urine pH (5.0-7.5) PH Ur Specific [place] (1.002-1.030) Urine Protein (NEGATIVE) mg/dL Urine Glucose (UA) (NEGATIVE) mg/dL Urine Ketones (NEGATIVE) mg/dL Urine Occult Blood (NEGATIVE) Urine Nitrite (NEGATIVE) Urine Bilirubin (NEGATIVE) Urine Urobilinogen (NORMAL) E.U./dL Ur Leukocyte Esterase (NEGATIVE) Urine RBC (0-5) /HPF Urine WBC (0-3) /HPF Ur Epithelial Cells (<= Few) /HPF Ur Squamous Epith Cells (<= Few) Urine Bacteria (None Seen) /HPF Urine Mucus Urine Culture Comments Nasal Adenovirus (PCR) Nasal B. parapertussis DNA (PCR) Nasal Coronavir 229E PCR Nasal Coronavir HKU1 PCR Nasal Coronavir NL63 PCR Nasal Coronavir OC43 PCR Nasal Enterovir/Rhinovir PCR Nasal Influenza B PCR Nasal Influenza A PCR Nasal Parainfluen 1 PCR Nasal Parainfluen 2 PCR Nasal Parainfluen 3 PCR Nasal Parainfluen 4 PCR Nasal RSV (PCR) Nasal B.pertussis DNA PCR Nasal C.pneumoniae (PCR) Nura Human Metapneumo PCR Nasal M.pneumoniae (PCR) Nasal SARS-CoV-2 (PCR) 08/27/21 08/27/21 Range/Units 15:25 15:17 WBC 12.4 H (4.8-10.8) x10^3/uL RBC 4.05 L (4.70-6.10) 10^6/uL Hgb 12.9 L (14.0-18.0) g/dL Hct 38.3 L (42.0-52.0) % MCV 94.6 H (80.0-94.0) fL MCH 31.9 H (27.0-31.0) pg MCHC 33.7 (32.0-36.0) g/dL RDW 13.7 (12.0-15.0) % Plt Count 198 (130-450) 10^3/uL MPV 9.8 (7.4-11.4) fL Neut # (Auto) Not Reportable Lymph # (Auto) Not Reportable [place] # (Auto) Not Reportable Eos # (Auto) Not Reportable Baso # (Auto) Not Reportable Absolute Nucleated RBC Not Reportable Total Counted 100 Band Neuts % (Manual) 5 (0 - 10) % Abnorm Lymph % (Manual) 0 % Nucleated RBC % Not Reportable Neutrophils # (Manual) 11.3 H (1.5-6.6) 10^3/uL Lymphocytes # (Manual) 0.7 L (1.5-3.5) 10^3/uL Monocytes # (Manual) 0.4 (0.0-1.0) 10^3/uL Eosinophils # (Manual) 0.0 (0-0.7) 10^3/uL Basophils # (Manual) 0.0 (0-0.1) 10^3/uL Differential Comment MANUAL DIFFERENTIAL Manual Slide Review Indicated WBC Morphology 1+ DOHLE BODIES (NORMAL) Platelet Estimate NORMAL (130-450,000) (NORMAL) Platelet Morphology NORMAL APPEARANCE (NORMAL) RBC Morph Micro Appear 1+ ANISOCYTOSIS (NORMAL) Sodium (135-145) mmol/L Potassium (3.5-5.0) mmol/L Chloride (101-111) mmol/L Carbon Dioxide (21-32) mmol/L Anion Gap (6-13) BUN (6-20) mg/dL Creatinine (0.6-1.2) mg/dL Estimated GFR (MDRD) (>89) Glucose (70-100) mg/dL Lactic Acid (0.5-2.2) mmol/L Calcium (8.5-10.3) mg/dL Total Bilirubin (0.2-1.0) mg/dL AST (10-42) IU/L ALT (10-60) IU/L Alkaline Phosphatase (42-121) IU/L B-Natriuretic Peptide (5-100) pg/mL Total Protein (6.7-8.2) g/dL Albumin (3.2-5.5) g/dL Globulin (2.1-4.2) g/dL Albumin/Globulin Ratio (1.0-2.2) Urine Color Urine Clarity (CLEAR) Urine pH (5.0-7.5) PH Ur Specific [place] (1.002-1.030) Urine Protein (NEGATIVE) mg/dL Urine Glucose (UA) (NEGATIVE) mg/dL Urine Ketones (NEGATIVE) mg/dL Urine Occult Blood (NEGATIVE) Urine Nitrite (NEGATIVE) Urine Bilirubin (NEGATIVE) Urine Urobilinogen (NORMAL) E.U./dL Ur Leukocyte Esterase (NEGATIVE) Urine RBC (0-5) /HPF Urine WBC (0-3) /HPF Ur Epithelial Cells (<= Few) /HPF Ur Squamous Epith Cells (<= Few) Urine Bacteria (None Seen) /HPF Urine Mucus Urine Culture Comments Nasal Adenovirus (PCR) NOT DETECTED Nasal B. parapertussis DNA (PCR) NOT DETECTED Nasal Coronavir 229E PCR NOT DETECTED Nasal Coronavir HKU1 PCR NOT DETECTED Nasal Coronavir NL63 PCR NOT DETECTED Nasal Coronavir OC43 PCR NOT DETECTED Nasal Enterovir/Rhinovir PCR NOT DETECTED Nasal Influenza B PCR NOT DETECTED Nasal Influenza A PCR NOT DETECTED Nasal Parainfluen 1 PCR NOT DETECTED Nasal Parainfluen 2 PCR NOT DETECTED Nasal Parainfluen 3 PCR NOT DETECTED Nasal Parainfluen 4 PCR NOT DETECTED Nasal RSV (PCR) NOT DETECTED Nasal B.pertussis DNA PCR NOT DETECTED Nasal C.pneumoniae (PCR) NOT DETECTED Nura Human Metapneumo PCR NOT DETECTED Nasal M.pneumoniae (PCR) NOT DETECTED Nasal SARS-CoV-2 (PCR) NOT DETECTED ABX Reporting Has patient been on IV antibiotics over the past 48 hours?: Yes Assessment/Plan - Problem List (1) Perforated abdominal viscus Impression: General surgery has already seen the patient and shared with me that they feel that he has quite a bit of hardened, impacted stool in the rectal vault and lower bowel. This is most likely what caused the perforation. They do not want enemas. But they do want manual disimpaction. They are also requesting single agent Zosyn. Plan: Single agent Zosyn, Day #2 Daily CBC: 12.4>>12.0 CT of the abdomen and pelvis in 3 days already ordered Surgical consult already done and to follow patient with us (2) Bacteremia Conclusion/Plan: Gram-negative bacteremia. Still no ID this morning. Differential diagnosis before I knew the results of the CT would include bowel, bladder, rarely lung in a patient that had not been already hospitalized. At this point in time is been narrowed down to perforated viscus. Plan: Repeat blood cultures done 08/27. Plan for minimum of 2 weeks of therapy starting from the time of negative blood cultures (3) Acute metabolic encephalopathy Conclusion/Plan: This mario gentleman is unfortunately already with baseline dementia. Has a adolescent medicine specialist. I suspect that his acute encephalopathy that the assisted living facility is describing is due to the perforated viscus and infection. Once he has been hydrated, received antibiotics, will reassess to see if he improves with his lethargy. I suspect he will. (4) Elevated liver enzymes, chronic Conclusion/Plan: In review of his past medical history this is a chronic problem for him. I have noted that the CT scan from [facility] in March 2020 did not show cirrhosis, esophageal varices. He did have sludge in the gallbladder. Plan: Hepatitis panel ordered and pending for completeness sake of work-up (5) Pneumonia Conclusion/Plan: Although he is asymptomatic on physical exam, he does have pneumonia on both chest x-ray as well as CT. He is received Rocephin and azithromycin to start out within the ER but now that we know he has a perforated bowel he is on single agent Zosyn. I suspect that he may be lethargic and aspirating. Zosyn should cover him for anaerobic bacteria. I will add azithromycin for 3 days only. Today Day #2 Azithromycin, Day#2 Zosyn Gurgling on exam so will reduce overall IVF to 85 cc/hr and hold this while he gets his K riders. Qualifiers: Pneumonia type: due to unspecified organism Laterality: right Lung location: lower lobe of lung Qualified Code(s): J18.9 - Pneumonia, unspecified organism (6) Enlarged heart Conclusion/Plan: Noted on CT scan. He did have an echocardiogram done at [facility] in March 2020 but the discharge summary that I read did not note the results. plan: Echocardiogram ordered Get the echo report from [facility], PROTOTYPE SEWER here will contact them. Monitor intake and output to make sure we do not fluid overload him (I have reduced IVF rate and will start lasix qod) (7) Dementia associated with alcoholism Conclusion/Plan: In reviewing the medical record he has a gradually progressive dementia. Significant drop in cognitive function between 2018 and April 2021 when a adolescent medicine specialist was appointed. In reviewing his medical record from [facility], he has a DURABLE POWER OF TABLE FILLER where he assigns his power of drafting detailer followed by his daughter Marilou, followed by someone else. However the adolescent medicine specialist came in April 2021 and I assume that that supersedes that DURABLE POWER OF TABLE FILLER. Dr. Nye let me know she spoke to son and HE is now the guardian as of one month ago. There are two sons from a previous relationship who showed up in the patients life as he was and deteriorating from alcohol abuse. They contested financial arrangements, so temporary guardian appointed separate from family. Then his son from second relationship is now guardian. Qualifiers: Dementia behavioral disturbance: without behavioral disturbance Qualified Code(s): F10.27 - Alcohol dependence with alcohol-induced persisting dementia (8) Dehydration resolved. Conclusion/Plan: Noted mainly through BUN, and interrogation of the inferior vena cava. His lab work has not been remarkable for severe acute kidney injury. Plan: Hydration with IV fluids. Check labs daily. Am avoiding fluid overload especially in view of the fact of an enlarged heart on today's CT scan (9) Hypokalemia K riders to supplement and recheck tomorrow. (10) Hyperglycemia no history of DM. Will continue to monitor and treat if necessary
[2021-08-28] MEDS: AZITHROMYCIN INJ 500 MG in SODIUM CHLORIDE 0.9% 250 ML IV SCH (09:17)
[2021-08-28] MEDS: ENOXAPARIN 40 MG/0.4 ML SYRINGE SUBQ SCH (09:18)
--- NOTE | 2021-08-28 09:18 | PHARMACY PROGRESS NOTE ---
- Best Possible Medication History Admit Date and Time: 08/27/21 1744 Processed by: Nursing Medication History completed: Yes Patient Interview: Completed (MED REC COMPLETED BY NURSING) As the person ultimately responsible for medication therapy, providers are able to order a medication from an existing home medication list in [facility] via the "Reconcile Routine" prior to Confirmation of that medication by retail support specialist. Such practice is discouraged except when the physician, in their clinical judgment, deems that a medical need exists for a medication without regard to previous use.
[2021-08-28] MEDS: FUROSEMIDE 20 MG/2 ML VIAL IVP SCH (09:19)
[2021-08-28] MEDS: DOCUSATE SODIUM 250 MG CAPSULE PO SCH (09:33)
[2021-08-28] MEDS: POTASSIUM CHLOR 10 MEQ/100 ML 10 MEQ/100 ML BAG IV SCH ×6 (09:39→15:15)
[2021-08-28] MEDS ORDERED: SODIUM CHLORIDE 0.9% 500 ML IV ONE (09:48)
[2021-08-28] MEDS: SODIUM CHLORIDE 0.9% 500 ML IV PRN (11:10)
--- NOTE | 2021-08-28 13:11 | PROVIDER PROGRESS NOTE ---
Subjective - General Admit Date: 08/27/21 - Other Other Information/Narrative: Hospital day #2 after admission for perforated viscus without abscess and community-acquired pneumonia. Clinically, he appears stable. He is trying to answer questions though is a bit disorganized. Very pleasant.When asked directly if he has pain he says no. He said no in the emergency room as well. He clearly is uncomfortable with palpation of bilateral lower quadrants perhaps a little more on the left than right. Objective - Patient Data Vital Signs: Vital Signs x48h Temp Pulse Resp BP Pulse Ox 08/28/21 08:20 37.2 C 64 20 143/68 H 96 Weight: Weight 08/26/21 08/27/21 08/28/21 23:59 23:59 23:59 Weight (kg) 86 kg Intake & Output: Intake and Output Totals x24h 08/26/21 08/27/21 08/28/21 23:59 23:59 23:59 Intake Total 1450 2126.750 Output Total 400 Balance 1450 1726.750 - Lab Results Lab Results: 08/28/21 04:27 08/28/21 04:27 Other Lab Results: Lab Results x24hrs 08/28/21 08/28/21 08/27/21 Range/Units 04:27 04:27 16:15 WBC 12.0 H (4.8-10.8) x10^3/uL RBC 3.66 L (4.70-6.10) 10^6/uL Hgb 11.6 L (14.0-18.0) g/dL Hct 34.4 L (42.0-52.0) % MCV 94.0 (80.0-94.0) fL MCH 31.7 H (27.0-31.0) pg MCHC 33.7 (32.0-36.0) g/dL RDW 13.7 (12.0-15.0) % Plt Count 201 (130-450) 10^3/uL MPV 10.0 (7.4-11.4) fL Neut # (Auto) 10.7 H Lymph # (Auto) 0.5 L [place] # (Auto) 0.8 Eos # (Auto) 0.0 Baso # (Auto) 0.0 Absolute Nucleated RBC 0.00 Total Counted Band Neuts % (Manual) (0 - 10) % Abnorm Lymph % (Manual) % Nucleated RBC % 0.0 Neutrophils # (Manual) (1.5-6.6) 10^3/uL Lymphocytes # (Manual) (1.5-3.5) 10^3/uL Monocytes # (Manual) (0.0-1.0) 10^3/uL Eosinophils # (Manual) (0-0.7) 10^3/uL Basophils # (Manual) (0-0.1) 10^3/uL Differential Comment Manual Slide Review WBC Morphology (NORMAL) Platelet Estimate (NORMAL) Platelet Morphology (NORMAL) RBC Morph Micro Appear (NORMAL) Sodium 140 (135-145) mmol/L Potassium 3.0 L (3.5-5.0) mmol/L Chloride 108 (101-111) mmol/L Carbon Dioxide 22 (21-32) mmol/L Anion Gap 10.0 (6-13) BUN 23 H (6-20) mg/dL Creatinine 1.0 (0.6-1.2) mg/dL Estimated GFR (MDRD) 72 L (>89) Glucose 149 H (70-100) mg/dL Lactic Acid (0.5-2.2) mmol/L Calcium 7.7 L (8.5-10.3) mg/dL Total Bilirubin (0.2-1.0) mg/dL AST (10-42) IU/L ALT (10-60) IU/L Alkaline Phosphatase (42-121) IU/L B-Natriuretic Peptide (5-100) pg/mL Total Protein (6.7-8.2) g/dL Albumin (3.2-5.5) g/dL Globulin (2.1-4.2) g/dL Albumin/Globulin Ratio (1.0-2.2) Urine Color DARK YELLOW Urine Clarity CLEAR (CLEAR) Urine pH 5.5 (5.0-7.5) PH Ur Specific [place] >=1.030 H (1.002-1.030) Urine Protein 100 H (NEGATIVE) mg/dL Urine Glucose (UA) NEGATIVE (NEGATIVE) mg/dL Urine Ketones NEGATIVE (NEGATIVE) mg/dL Urine Occult Blood SMALL H (NEGATIVE) Urine Nitrite NEGATIVE (NEGATIVE) Urine Bilirubin NEGATIVE (NEGATIVE) Urine Urobilinogen 0.2 (NORMAL) (NORMAL) E.U./dL Ur Leukocyte Esterase NEGATIVE (NEGATIVE) Urine RBC 0-5 (0-5) /HPF Urine WBC 0-3 (0-3) /HPF Ur Epithelial Cells FEW Transitional (<= Few) /HPF Ur Squamous Epith Cells RARE Squamous (<= Few) Urine Bacteria Rare (None Seen) /HPF Urine Mucus Few Strands Urine Culture Comments NOT INDICATED Nasal Adenovirus (PCR) Nasal B. parapertussis DNA (PCR) Nasal Coronavir 229E PCR Nasal Coronavir HKU1 PCR Nasal Coronavir NL63 PCR Nasal Coronavir OC43 PCR Nasal Enterovir/Rhinovir PCR Nasal Influenza B PCR Nasal Influenza A PCR Nasal Parainfluen 1 PCR Nasal Parainfluen 2 PCR Nasal Parainfluen 3 PCR Nasal Parainfluen 4 PCR Nasal RSV (PCR) Nasal B.pertussis DNA PCR Nasal C.pneumoniae (PCR) Nura Human Metapneumo PCR Nasal M.pneumoniae (PCR) Nasal SARS-CoV-2 (PCR) 08/27/21 08/27/21 08/27/21 Range/Units 15:25 15:25 15:25 WBC (4.8-10.8) x10^3/uL RBC (4.70-6.10) 10^6/uL Hgb (14.0-18.0) g/dL Hct (42.0-52.0) % MCV (80.0-94.0) fL MCH (27.0-31.0) pg MCHC (32.0-36.0) g/dL RDW (12.0-15.0) % Plt Count (130-450) 10^3/uL MPV (7.4-11.4) fL Neut # (Auto) Lymph # (Auto) [place] # (Auto) Eos # (Auto) Baso # (Auto) Absolute Nucleated RBC Total Counted Band Neuts % (Manual) (0 - 10) % Abnorm Lymph % (Manual) % Nucleated RBC % Neutrophils # (Manual) (1.5-6.6) 10^3/uL Lymphocytes # (Manual) (1.5-3.5) 10^3/uL Monocytes # (Manual) (0.0-1.0) 10^3/uL Eosinophils # (Manual) (0-0.7) 10^3/uL Basophils # (Manual) (0-0.1) 10^3/uL Differential Comment Manual Slide Review WBC Morphology (NORMAL) Platelet Estimate (NORMAL) Platelet Morphology (NORMAL) RBC Morph Micro Appear (NORMAL) Sodium 139 (135-145) mmol/L Potassium 3.5 (3.5-5.0) mmol/L Chloride 105 (101-111) mmol/L Carbon Dioxide 24 (21-32) mmol/L Anion Gap 10.0 (6-13) BUN 25 H (6-20) mg/dL Creatinine 1.1 (0.6-1.2) mg/dL Estimated GFR (MDRD) 65 L (>89) Glucose 150 H (70-100) mg/dL Lactic Acid 1.3 (0.5-2.2) mmol/L Calcium 8.2 L (8.5-10.3) mg/dL Total Bilirubin 3.3 H (0.2-1.0) mg/dL AST 58 H (10-42) IU/L ALT 46 (10-60) IU/L Alkaline Phosphatase 44 (42-121) IU/L B-Natriuretic Peptide 335 H (5-100) pg/mL Total Protein 6.6 L (6.7-8.2) g/dL Albumin 3.0 L (3.2-5.5) g/dL Globulin 3.6 (2.1-4.2) g/dL Albumin/Globulin Ratio 0.8 L (1.0-2.2) Urine Color Urine Clarity (CLEAR) Urine pH (5.0-7.5) PH Ur Specific [place] (1.002-1.030) Urine Protein (NEGATIVE) mg/dL Urine Glucose (UA) (NEGATIVE) mg/dL Urine Ketones (NEGATIVE) mg/dL Urine Occult Blood (NEGATIVE) Urine Nitrite (NEGATIVE) Urine Bilirubin (NEGATIVE) Urine Urobilinogen (NORMAL) E.U./dL Ur Leukocyte Esterase (NEGATIVE) Urine RBC (0-5) /HPF Urine WBC (0-3) /HPF Ur Epithelial Cells (<= Few) /HPF Ur Squamous Epith Cells (<= Few) Urine Bacteria (None Seen) /HPF Urine Mucus Urine Culture Comments Nasal Adenovirus (PCR) Nasal B. parapertussis DNA (PCR) Nasal Coronavir 229E PCR Nasal Coronavir HKU1 PCR Nasal Coronavir NL63 PCR Nasal Coronavir OC43 PCR Nasal Enterovir/Rhinovir PCR Nasal Influenza B PCR Nasal Influenza A PCR Nasal Parainfluen 1 PCR Nasal Parainfluen 2 PCR Nasal Parainfluen 3 PCR Nasal Parainfluen 4 PCR Nasal RSV (PCR) Nasal B.pertussis DNA PCR Nasal C.pneumoniae (PCR) Nura Human Metapneumo PCR Nasal M.pneumoniae (PCR) Nasal SARS-CoV-2 (PCR) 08/27/21 08/27/21 Range/Units 15:25 15:17 WBC 12.4 H (4.8-10.8) x10^3/uL RBC 4.05 L (4.70-6.10) 10^6/uL Hgb 12.9 L (14.0-18.0) g/dL Hct 38.3 L (42.0-52.0) % MCV 94.6 H (80.0-94.0) fL MCH 31.9 H (27.0-31.0) pg MCHC 33.7 (32.0-36.0) g/dL RDW 13.7 (12.0-15.0) % Plt Count 198 (130-450) 10^3/uL MPV 9.8 (7.4-11.4) fL Neut # (Auto) Not Reportable Lymph # (Auto) Not Reportable [place] # (Auto) Not Reportable Eos # (Auto) Not Reportable Baso # (Auto) Not Reportable Absolute Nucleated RBC Not Reportable Total Counted 100 Band Neuts % (Manual) 5 (0 - 10) % Abnorm Lymph % (Manual) 0 % Nucleated RBC % Not Reportable Neutrophils # (Manual) 11.3 H (1.5-6.6) 10^3/uL Lymphocytes # (Manual) 0.7 L (1.5-3.5) 10^3/uL Monocytes # (Manual) 0.4 (0.0-1.0) 10^3/uL Eosinophils # (Manual) 0.0 (0-0.7) 10^3/uL Basophils # (Manual) 0.0 (0-0.1) 10^3/uL Differential Comment MANUAL DIFFERENTIAL Manual Slide Review Indicated WBC Morphology 1+ DOHLE BODIES (NORMAL) Platelet Estimate NORMAL (130-450,000) (NORMAL) Platelet Morphology NORMAL APPEARANCE (NORMAL) RBC Morph Micro Appear 1+ ANISOCYTOSIS (NORMAL) Sodium (135-145) mmol/L Potassium (3.5-5.0) mmol/L Chloride (101-111) mmol/L Carbon Dioxide (21-32) mmol/L Anion Gap (6-13) BUN (6-20) mg/dL Creatinine (0.6-1.2) mg/dL Estimated GFR (MDRD) (>89) Glucose (70-100) mg/dL Lactic Acid (0.5-2.2) mmol/L Calcium (8.5-10.3) mg/dL Total Bilirubin (0.2-1.0) mg/dL AST (10-42) IU/L ALT (10-60) IU/L Alkaline Phosphatase (42-121) IU/L B-Natriuretic Peptide (5-100) pg/mL Total Protein (6.7-8.2) g/dL Albumin (3.2-5.5) g/dL Globulin (2.1-4.2) g/dL Albumin/Globulin Ratio (1.0-2.2) Urine Color Urine Clarity (CLEAR) Urine pH (5.0-7.5) PH Ur Specific [place] (1.002-1.030) Urine Protein (NEGATIVE) mg/dL Urine Glucose (UA) (NEGATIVE) mg/dL Urine Ketones (NEGATIVE) mg/dL Urine Occult Blood (NEGATIVE) Urine Nitrite (NEGATIVE) Urine Bilirubin (NEGATIVE) Urine Urobilinogen (NORMAL) E.U./dL Ur Leukocyte Esterase (NEGATIVE) Urine RBC (0-5) /HPF Urine WBC (0-3) /HPF Ur Epithelial Cells (<= Few) /HPF Ur Squamous Epith Cells (<= Few) Urine Bacteria (None Seen) /HPF Urine Mucus Urine Culture Comments Nasal Adenovirus (PCR) NOT DETECTED Nasal B. parapertussis DNA (PCR) NOT DETECTED Nasal Coronavir 229E PCR NOT DETECTED Nasal Coronavir HKU1 PCR NOT DETECTED Nasal Coronavir NL63 PCR NOT DETECTED Nasal Coronavir OC43 PCR NOT DETECTED Nasal Enterovir/Rhinovir PCR NOT DETECTED Nasal Influenza B PCR NOT DETECTED Nasal Influenza A PCR NOT DETECTED Nasal Parainfluen 1 PCR NOT DETECTED Nasal Parainfluen 2 PCR NOT DETECTED Nasal Parainfluen 3 PCR NOT DETECTED Nasal Parainfluen 4 PCR NOT DETECTED Nasal RSV (PCR) NOT DETECTED Nasal B.pertussis DNA PCR NOT DETECTED Nasal C.pneumoniae (PCR) NOT DETECTED Nura Human Metapneumo PCR NOT DETECTED Nasal M.pneumoniae (PCR) NOT DETECTED Nasal SARS-CoV-2 (PCR) NOT DETECTED - Current Medications Current Medications: Current Medications Generic Name Dose Route Start Last Admin Trade Name Freq PRN Reason Stop Dose Admin Docusate Sodium 250 mg 08/28/21 09:00 08/28/21 09:33 Docusate Sodium 250 Mg Capsule PO Not Given DAILY LAVONNE Enoxaparin Sodium 40 mg 08/28/21 09:00 08/28/21 09:18 Enoxaparin 40 Mg/0.4 Ml Syringe SUBQ 40 mg DAILY LAVONNE Administration Furosemide 20 mg 08/28/21 09:00 08/28/21 09:19 Furosemide 20 Mg/2 Ml Vial IVP 20 mg Q48H LAVONNE Administration Piperacillin Sod/Tazobactam 100 mls @ 25 mls/hr 08/28/21 04:00 08/28/21 11:51 Sod 3.375 gm/ Sodium Chloride IV 25 mls/hr Q8H LAVONNE Administration Potassium Chloride 10 meq in 100 mls @ 100 mls/hr 08/28/21 08:00 08/28/21 12:58 Potassium Chloride IV 08/28/21 13:59 100 mls/hr Q1H LAVONNE Administration Azithromycin 500 mg/ Sodium 250 mls @ 250 mls/hr 08/28/21 09:00 08/28/21 10:43 Chloride IV 08/30/21 09:59 Infused DAILY LAVONNE Infusion Lactated Ringer's 1,000 mls @ 85 mls/hr 08/28/21 08:59 08/28/21 09:54 Lr IV 0 mls/hr .[id number] LAVONNE Infusion Sodium Chloride 500 mls @ 20 mls/hr 08/28/21 11:09 08/28/21 11:10 Normal Saline 0.9% IV 75 mls/hr Q24H PRN Administration TKO RATE Sodium Chloride 10 ml 08/28/21 01:00 08/28/21 09:19 Sodium Chloride Flush 0.9% 10 Ml Syringe IVP 10 ml 0100,0900,1700 LAVONNE Administration - Physical Exam Abdomen: positive: Nml bowel sounds, No distention, Tenderness, Guarding. negative: Rebound Skin: positive: Pallor Extremities: positive: Non-tender ABX Reporting Has patient been on IV antibiotics over the past 48 hours?: Yes Impression/Plan - Problem List Problem List: 1. He is responding to antibiotics. I think there is a high probability that he is going to resolve this episode without surgical intervention. It would certainly be a less than ideal operative risk with his underlying liver disease. I would continue Zosyn. 2. If he continues to do well tomorrow, we could consider starting clear liquids.Certainly p.o. meds are no problem. 3. In discussion with his son, his son reports that he has a cycle of diarrhea followed by constipation he treats the diarrhea with Lomotil and the constipation with enemas. It seems like this 1 just got away from him.We will continue stool softeners.
[2021-08-29] MEDS: PIPERACILLIN/TAZOBACTAM 3.375 GM in SODIUM CHLORIDE 0.9% MINIBAG 100 ML IV SCH ×3 (04:29→19:52)
[2021-08-29 05:00] LABS: BASOPHILS % (AUTO) 0.3 %; EOSINOPHILS % (AUTO) 0.1 %; LYMPHOCYTES # (AUTO) 0.8 10^3/uL (1.5-3.5); LYMPHOCYTES % (AUTO) 5.1 %; MEAN CORPUSCULAR HEMOGLOBIN 31.3 pg (27.0-31.0); MEAN CORPUSCULAR HGB CONC 33.3 g/dL (32.0-36.0); MEAN PLATELET VOLUME 9.7 fL (7.4-11.4); MONOCYTES % (AUTO) 6.4 %; NEUTROPHILS % (AUTO) 87.4 %; PLT - PLATELET COUNT 257 10^3/uL (130-450); RED BLOOD COUNT 3.51 10^6/uL (4.70-6.10); RED CELL DISTRIBUTION WIDTH 13.9 % (12.0-15.0); WHITE BLOOD COUNT 14.9 x10^3/uL (4.8-10.8)
[2021-08-29 05:13] LABS: CALCIUM 7.8 mg/dL (8.5-10.3); CREATININE 0.9 mg/dL (0.6-1.2); POTASSIUM 2.8 mmol/L (3.5-5.0)
[2021-08-29] MEDS: POTASSIUM CHLOR 10 MEQ/100 ML 10 MEQ/100 ML BAG IV SCH ×12 (08:39→20:22)
[2021-08-29] MEDS: DOCUSATE SODIUM 250 MG CAPSULE PO SCH (08:41)
[2021-08-29] MEDS: ENOXAPARIN 40 MG/0.4 ML SYRINGE SUBQ SCH (08:41)
[2021-08-29] MEDS: AZITHROMYCIN INJ 500 MG in SODIUM CHLORIDE 0.9% 250 ML IV SCH (08:47)
[2021-08-29] MEDS: LACTATED RINGERS 1,000 ML IV SCH ×2 (10:43→21:33)
--- NOTE | 2021-08-29 11:26 | PROVIDER PROGRESS NOTE ---
Subjective - Prog Note Date Prog Note Date: 08/29/21 Prog Note Time: 11:25 - Subjective Pt reports feeling: No change (difficult to obtain from pt) Subjective: Pt laying in bed. Alert and awake, but unable to answer all questions appropriately. He doesn't really know where he is, but knows his name. He doesn't have any pain currently.Observed pt try to stand to use urinal with assistance, but pt was unable to weight bear to accomplish this. MOTOR AND CHASSIS INSPECTOR at bedside assisting with changing pt. The patients current vital signs are stable. With BP at 140/62, RR 20. and normal temperature. He is slightly bradycardic in the 50s. His current WBC count is up slightly from 12s to 14.9. His Kgb is slightly going down from the 12s to 11 currently. His K+ decreased from 3.0 to 2.8 despite IV supplementation. He is awaiting CT scan tomorrow that will guide surgical reassessment. He currently has no additional needs at this time. Objective - Vital Signs/Intake & Output Vital Signs: Vital Signs x48h Temp Pulse Resp BP Pulse Ox 08/29/21 07:32 36.8 C 51 L 20 140/62 H 96 Intake & Output: Intake & Output 08/26/21 08/27/21 08/28/21 08/29/21 23:59 23:59 23:59 23:59 Intake Total 1450 3164.333 1540 Output Total 400 Balance 1450 2764.333 1540 - Objective General Appearance: positive: No acute distress, Alert (Awake and aware, but not tracking 100%. Slightly confused.), Other (Currently feels hot and laying in bed. Denies having any pain) Eyes Bilateral: positive: PERRL, EOMI Neck: positive: No JVD, Trachea midline. negative: Stiff neck Respiratory: positive: No respiratory distress. negative: Wheezes, Rales, Rhonchi Cardiovascular: positive: Bradycardia. negative: No murmur, No gallop Peripheral Pulses: 1+ Radial (R), 1+ Radial (L), 1+ Dorsalis pedis (R), 1+ Dorsalis pedis (L) Abdomen: positive: No distention, Tenderness (RLQ. Soft abdomen.), Abnml bowel sounds (hypoactive). negative: Guarding, Rebound Skin: positive: No rash, Warm, Dry Extremities: positive: Full ROM, No pedal edema Neurologic/Psychiatric: positive: CN's nml (2-12), Motor nml, Disoriented to place, Disoriented to time, Other (Delayed response time in answering questions. Doesn't always understand the simple question being asked.) - Lab Results Fish Bones: 08/29/21 04:43 08/29/21 04:43 Other Labs: Lab Results x24hrs 08/29/21 08/29/21 08/29/21 Range/Units 04:43 04:43 04:43 WBC 14.9 H (4.8-10.8) x10^3/uL RBC 3.51 L (4.70-6.10) 10^6/uL Hgb 11.0 L (14.0-18.0) g/dL Hct 33.0 L (42.0-52.0) % MCV 94.0 (80.0-94.0) fL MCH 31.3 H (27.0-31.0) pg MCHC 33.3 (32.0-36.0) g/dL RDW 13.9 (12.0-15.0) % Plt Count 257 (130-450) 10^3/uL MPV 9.7 (7.4-11.4) fL Neut # (Auto) 13.0 H (1.5-6.6) 10^3/uL Lymph # (Auto) 0.8 L (1.5-3.5) 10^3/uL [place] # (Auto) 1.0 (0.0-1.0) 10^3/uL Eos # (Auto) 0.0 (0.0-0.7) 10^3/uL Baso # (Auto) 0.0 (0.0-0.1) 10^3/uL Absolute Nucleated RBC 0.00 x10^3/uL Nucleated RBC % 0.0 /100WBC Sodium 141 (135-145) mmol/L Potassium 2.8 L (3.5-5.0) mmol/L Chloride 106 (101-111) mmol/L Carbon Dioxide 22 (21-32) mmol/L Anion Gap 13.0 (6-13) BUN 22 H (6-20) mg/dL Creatinine 0.9 (0.6-1.2) mg/dL Estimated GFR (MDRD) 82 L (>89) Glucose 125 H (70-100) mg/dL Calcium 7.8 L (8.5-10.3) mg/dL Magnesium 1.9 (1.7-2.8) mg/dL ABX Reporting Has patient been on IV antibiotics over the past 48 hours?: Yes Assessment/Plan - Problem List (1) Perforated abdominal viscus Impression: Impression: General surgery has already seen the patient and shared with me that they feel that he has quite a bit of hardened, impacted stool in the rectal vault and lower bowel. This is most likely what caused the perforation. They do not want enemas. But they do want manual disimpaction. The zosyn they requested is currently being given. Plan: Single agent Zosyn, Day #3 Daily CBC: 12.4>>12.0>> increased to 14.9 CT of the abdomen and pelvis in 3 days already ordered. This CT will be done tomorrow 08/29. Surgical consult already done and to follow patient with us. Continue to monitor for any signs of further deterioration. (2) Bacteremia Conclusion/Plan: Gram-negative bacteremia. Still no ID this morning. Differential diagnosis be fore I knew the results of the CT would include bowel, bladder, rarely lung in a patient that had not been already hospitalized. At this point in time is been narrowed down to perforated viscus. This has no changed as of 08/29 Plan: Continue to repeat blood cultures. Plan for minimum of 2 weeks of therapy starting from the time of negative blood cultures (3) Acute metabolic encephalopathy Conclusion/Plan: This mario gentleman is unfortunately already with baseline dementia. Has a product sales engineer. I suspect that his acute encephalopathy that the assisted living facility is describing is due to the perforated viscus and infection. He has been hydrated, received antibiotics, and is currently showing mild signs of improvement of his encephalitic based confusion. Most likely this should continue to improve as treatment progresses assuming the underlying infectious condition resolves. (4) Elevated liver enzymes, chronic Conclusion/Plan: In review of his past medical history this is a chronic problem for him. I have noted that the CT scan from [facility] in March 2020 did not show cirrhosis, esophageal varices. He did have sludge in the gallbladder. Plan: Hepatitis panel resulted negative for signs of hepatitis with all values being non-reactive. (5) Pneumonia Conclusion/Plan: Although he is asymptomatic on physical exam, he does have pneumonia on both chest x-ray as well as CT. He received Rocephin and azithromycin to start out within the ER but now that we know he has a perforated bowel he is on single agent Zosyn. I suspect that he may be lethargic and aspirating. Zosyn should cover him for anaerobic bacteria. I will add azithromycin for 3 days only. Today Day #3 Azithromycin, Day#3 Zosyn Gurgling on exam so will reduce overall IVF to 85 cc/hr and hold this while he gets his K riders. 08/29 gurgling resolved upon physical exam and patients breathing has improved. Qualifiers: Pneumonia type: due to unspecified organism Laterality: right Lung location: lower lobe of lung Qualified Code(s): J18.9 - Pneumonia, unspecified organism (6) Enlarged heart Conclusion/Plan: Noted on CT scan. He did have an echocardiogram done at [facility] in March 2020 but the discharge summary that I read did not note the results. His echo done here at [facility] on the showed increased RSVP suggestive of pulmonary HTN. Likely due to a lung etiology from hx of smoking. Currently this is not a priority to decide longwall headgate operator course of treatment for this pulm htn given his infection status and bowel pathology. plan: Get the echo report from [facility], MANAGER AUDIT here will contact them. Still have not gotten it as of 08/29 Monitor intake and output to make sure we do not fluid overload him. I have r educed IVF rate and will started lasix qod.This will needed to be taken into account for further surgical evaluation. Will make sure to let surgeon know. (7) Dementia associated with alcoholism Conclusion/Plan: In reviewing the medical record he has a gradually progressive dementia. Significant drop in cognitive function between 2018 and April 2021 when a chicho turner was appointed. In reviewing his medical record from [facility], he has a DURABLE POWER OF ELECTRONICS TECHNOLOGY INSTRUCTOR where he assigns his power of attorney general followed by his daughter Marilou, followed by someone else. However the product sales engineer came in April 2021 and I assume that that supersedes that DURABLE POWER OF ELECTRONICS TECHNOLOGY INSTRUCTOR. Dr. Nye let me know she spoke to son and HE is now the guardian as of one month ago. There are two sons from a previous relationship who showed up in the patients life as he was and deteriorating from alcohol abuse. They contested financial arrangements, so temporary guardian appointed separate from family. Then his son from second relationship is now guardian. Qualifiers: Dementia behavioral disturbance: without behavioral disturbance Qualified Code(s): F10.27 - Alcohol dependence with alcohol-induced persisting dementia No change 08/29 (8) Dehydration resolved. Conclusion/Plan: Noted mainly through BUN, and interrogation of the inferior vena cava. His lab work has not been remarkable for severe acute kidney injury. Plan: Hydration with IV fluids. Check labs daily. Am avoiding fluid overload especially in view of the fact of an enlarged heart on yesterdays CT scan. No change 08/29 (9) Hypokalemia K riders given. K+ decreased from 3.0 to 2.8. Difficult to ascertain the cause of this continued K+ loss despite supplementation. Will continue K+ supplementation IV. Continue to monitor closely. (10) Hyperglycemia no history of DM. Will continue to monitor and treat if necessary. Stable as of 08/29
[2021-08-29] MEDS ORDERED: METOPROLOL 5 MG/5 ML VIAL IVP PRN (12:05)
[2021-08-29 12:56] LABS: HEPATITIS A IGM NON-REACTIVE (NON-REACTIVE); HEPATITIS B CORE ANTIBODY IGM NON-REACTIVE (NON-REACTIVE); HEPATITIS B SURFACE ANTIGEN NON-REACTIVE (NON-REACTIVE); HEPATITIS C ANTIBODY NON-REACTIVE (NON-REACTIVE)
[2021-08-29] MEDS: SODIUM CHLORIDE FLUSH 0.9% 10 ML SYRINGE IVP SCH ×3 (13:06→23:31)
--- NOTE | 2021-08-29 15:36 | PROVIDER PROGRESS NOTE ---
Subjective - Prog Note Date Prog Note Date: 08/29/21 - Subjective Pt reports feeling: Improved (denies nausea. large soft brown bm today by record review. he does not recall.) Objective - Vital Signs/Intake & Output Intake & Output: Intake & Output 08/26/21 08/27/21 08/28/21 08/29/21 23:59 23:59 23:59 23:59 Intake Total 1450 3164.333 1940 Output Total 400 Balance 1450 2764.333 1940 - Objective General Appearance: positive: No acute distress, Alert Respiratory: positive: No respiratory distress Abdomen: positive: Non-tender, No distention - Lab Results Fish Bones: 08/29/21 04:43 08/29/21 04:43 Other Labs: Lab Results x24hrs 08/29/21 08/29/21 08/29/21 Range/Units 04:43 04:43 04:43 WBC 14.9 H (4.8-10.8) x10^3/uL RBC 3.51 L (4.70-6.10) 10^6/uL Hgb 11.0 L (14.0-18.0) g/dL Hct 33.0 L (42.0-52.0) % MCV 94.0 (80.0-94.0) fL MCH 31.3 H (27.0-31.0) pg MCHC 33.3 (32.0-36.0) g/dL RDW 13.9 (12.0-15.0) % Plt Count 257 (130-450) 10^3/uL MPV 9.7 (7.4-11.4) fL Neut # (Auto) 13.0 H (1.5-6.6) 10^3/uL Lymph # (Auto) 0.8 L (1.5-3.5) 10^3/uL [place] # (Auto) 1.0 (0.0-1.0) 10^3/uL Eos # (Auto) 0.0 (0.0-0.7) 10^3/uL Baso # (Auto) 0.0 (0.0-0.1) 10^3/uL Absolute Nucleated RBC 0.00 x10^3/uL Nucleated RBC % 0.0 /100WBC Sodium 141 (135-145) mmol/L Potassium 2.8 L (3.5-5.0) mmol/L Chloride 106 (101-111) mmol/L Carbon Dioxide 22 (21-32) mmol/L Anion Gap 13.0 (6-13) BUN 22 H (6-20) mg/dL Creatinine 0.9 (0.6-1.2) mg/dL Estimated GFR (MDRD) 82 L (>89) Glucose 125 H (70-100) mg/dL Calcium 7.8 L (8.5-10.3) mg/dL Magnesium 1.9 (1.7-2.8) mg/dL Hepatitis A IgM Ab (NON-REACTIVE) Hep Bs Antigen (NON-REACTIVE) Hep B Core IgM Ab (NON-REACTIVE) Hepatitis C Antibody (NON-REACTIVE) Hep C Ab Signal/Cutoff (<1.00) 08/27/21 Range/Units 15:25 WBC (4.8-10.8) x10^3/uL RBC (4.70-6.10) 10^6/uL Hgb (14.0-18.0) g/dL Hct (42.0-52.0) % MCV (80.0-94.0) fL MCH (27.0-31.0) pg MCHC (32.0-36.0) g/dL RDW (12.0-15.0) % Plt Count (130-450) 10^3/uL MPV (7.4-11.4) fL Neut # (Auto) (1.5-6.6) 10^3/uL Lymph # (Auto) (1.5-3.5) 10^3/uL [place] # (Auto) (0.0-1.0) 10^3/uL Eos # (Auto) (0.0-0.7) 10^3/uL Baso # (Auto) (0.0-0.1) 10^3/uL Absolute Nucleated RBC x10^3/uL Nucleated RBC % /100WBC Sodium (135-145) mmol/L Potassium (3.5-5.0) mmol/L Chloride (101-111) mmol/L Carbon Dioxide (21-32) mmol/L Anion Gap (6-13) BUN (6-20) mg/dL Creatinine (0.6-1.2) mg/dL Estimated GFR (MDRD) (>89) Glucose (70-100) mg/dL Calcium (8.5-10.3) mg/dL Magnesium (1.7-2.8) mg/dL Hepatitis A IgM Ab NON-REACTIVE (NON-REACTIVE) Hep Bs Antigen NON-REACTIVE (NON-REACTIVE) Hep B Core IgM Ab NON-REACTIVE (NON-REACTIVE) Hepatitis C Antibody NON-REACTIVE (NON-REACTIVE) Hep C Ab Signal/Cutoff 0.00 (<1.00) - Diagnostic Imaging Diagnostic Imaging Results: positive: Read independently Assessment/Plan - Problem List (1) Acute colitis Impression: WBC up today; however, he has a benign abdomen/ normal abdominal exam and return of bowel function. plan diet clears will follow consider ct with contrast in few days if he continues to have an elevated wbc and does not tolerate diet
[2021-08-30] MEDS: PIPERACILLIN/TAZOBACTAM 3.375 GM in SODIUM CHLORIDE 0.9% MINIBAG 100 ML IV SCH ×3 (04:08→20:34)
[2021-08-30 05:29] LABS: BASOPHILS % (AUTO) 0.3 %; EOSINOPHILS # (AUTO) 0.1 10^3/uL (0.0-0.7); EOSINOPHILS % (AUTO) 0.7 %; HCT - HEMATOCRIT 31.2 % (42.0-52.0); HGB - HEMOGLOBIN 10.3 g/dL (14.0-18.0); LYMPHOCYTES # (AUTO) 0.9 10^3/uL (1.5-3.5); LYMPHOCYTES % (AUTO) 6.9 %; MEAN CORPUSCULAR HEMOGLOBIN 31.4 pg (27.0-31.0); MEAN CORPUSCULAR VOLUME 95.1 fL (80.0-94.0); MEAN PLATELET VOLUME 9.9 fL (7.4-11.4); MONOCYTES % (AUTO) 7.4 %; NEUTROPHILS # (AUTO) 10.8 10^3/uL (1.5-6.6); NEUTROPHILS % (AUTO) 83.9 %; PLT - PLATELET COUNT 281 10^3/uL (130-450); RED BLOOD COUNT 3.28 10^6/uL (4.70-6.10); RED CELL DISTRIBUTION WIDTH 13.9 % (12.0-15.0); WHITE BLOOD COUNT 12.9 x10^3/uL (4.8-10.8)
[2021-08-30 05:37] LABS: CALCIUM 7.7 mg/dL (8.5-10.3); CREATININE 0.8 mg/dL (0.6-1.2); POTASSIUM 3.1 mmol/L (3.5-5.0)
[2021-08-30] MEDS ORDERED: IOVERSOL 320 50 ML VIAL ONE (07:32)
[2021-08-30] MEDS ORDERED: IOVERSOL 320 100 ML VIAL IVP ONE ×2 (07:32→11:19)
[2021-08-30] MEDS: LACTATED RINGERS 1,000 ML IV SCH ×2 (08:58→20:34)
[2021-08-30] MEDS: DOCUSATE SODIUM 250 MG CAPSULE PO SCH (08:59)
[2021-08-30] MEDS: SODIUM CHLORIDE FLUSH 0.9% 10 ML SYRINGE IVP SCH ×2 (08:59→16:12)
[2021-08-30] MEDS: FUROSEMIDE 20 MG/2 ML VIAL IVP SCH (08:59)
[2021-08-30] MEDS: ENOXAPARIN 40 MG/0.4 ML SYRINGE SUBQ SCH (09:02)
[2021-08-30] MEDS: POTASSIUM CHLOR 10 MEQ/100 ML 10 MEQ/100 ML BAG IV SCH ×4 (09:08→12:56)
[2021-08-30] MEDS ORDERED: IOVERSOL 320 50 ML VIAL PO ONE (11:20)
--- NOTE | 2021-08-30 15:27 | CT Report ---
PROCEDURE: Abdomen/Pelvis W INDICATIONS: perforated sigmoid CONTRAST: IV CONTRAST: Optiray 320 ml: 100 PO CONTRAST: Optiray 320 ml50 TECHNIQUE: After the administration of nonionic iodinated and oral contrast, 5 mm thick sections acquired from t he diaphragms to the symphysis. 5 mm thick coronal and sagittal reformats were acquired. For radiat ion dose reduction, the following was used: automated exposure control, adjustment of mA and/or kV a ccording to patient size. COMPARISON: CT dated 08/27/2021 FINDINGS: Image quality: Excellent. ABDOMEN: Lung bases: Moderate right and small left pleural effusions with adjacent atelectasis. Heart size is normal. Coronary vascular calcifications. Trace pericardial effusion. Solid organs: Spleen is unremarkable. The liver again demonstrates perihepatic fluid collections scal loping the liver. There is no internal foci of gas within these fluid collections with peripheral enh ancement on today's exam. The largest fluid collection measures 5.7 x 5.7 x 3.1 cm. There is adjacent inflammation. Gallbladder is distended, otherwise without wall thickening stones or other abnormalit y. Biliary system is non dilated. Pancreas enhances normally. No adrenal nodules. Kidneys demonst rate normal size and enhancement, without hydronephrosis. Again noted are multiple simple renal cyst s. Small amount of perinephric inflammation is again noted. Peritoneum and bowel: The stomach and proximal small bowel are unremarkable. No evidence of obstructi on. Within the right upper quadrant likely corresponding to descending colon/cecum there is difficult delineation of the bowel mandel. The appendix is likely noted without the distal aspect able to be fu lly evaluated. There is a small amount of air and fluid. Stool is noted throughout the colon. There i s small amount of ascites noted throughout the abdomen/pelvis. Nodes and vessels: No retroperitoneal or mesenteric adenopathy by size criteria. Aorta and inferior vena cava are normal in size. Miscellaneous: No ventral hernias. PELVIS: Genitourinary: Bladder wall thickness is normal. Miscellaneous: No inguinal hernias or adenopathy. Bones: No suspicious bony lesions. Degenerative changes of the hips and spine. No vertebral body compression fractures. IMPRESSION: Perihepatic fluid collections which demonstrates peripheral enhancement and internal foci of gas favo red to represent abscesses which are scalloping the liver. The largest measures 5.7 x 5.7 x 3.1 cm. This is likely due to colonic perforation within the right upper quadrant likely representing a perfo rated appendix versus right colon. There is increased amount of ascites. Recommend surgical consultat ion. These findings were discussed with the inpatient physician Dr. Bradshaw by Dr. Socrates Mercado over the tele phone at approximately 1420 hours AST on 08/30/2021. Moderate right and small left ascites increased from prior examination with adjacent atelectasis. Coronary vascular calcifications. Small pericardial effusion. Other chronic findings as above. Reviewed by: Socrates Mercado DO on 08/30/2021 2:26 PM [facility] Approved by: Socrates Mercado DO on 08/30/2021 2:26 PM [facility] Station ID: [id number]
--- NOTE | 2021-08-30 16:21 | PROVIDER PROGRESS NOTE ---
Subjective - General Admit Date: 08/27/21 - Other Other Information/Narrative: Much more awake and alert than at admission. Afebrile. Reports some abdominal pain. Having multiple stools each day Objective - Patient Data Reviewed Vital Signs: Yes Vital Signs: Vital Signs - 24 hr 08/29/21 08/30/21 23:29 07:49 Temperature 36.9 C 36.5 C Heart Rate [ 53 L Brachial] Heart Rate [ 50 L Radial] Respiratory 16 18 Rate Blood Pressure 124/64 144/62 H [Right Brachial artery] O2 Saturation 96 95 Oxygen O2 Source Room air Intake & Output: Intake and Output Totals x24h 08/28/21 08/29/21 08/30/21 23:59 23:59 23:59 Intake Total 3164.333 4239.166 1690.417 Output Total 400 250 Balance 2764.333 4239.166 1440.417 - Lab Results Lab Results: 08/30/21 05:05 08/30/21 05:05 Other Lab Results: Lab Results x24hrs 08/30/21 08/30/21 Range/Units 05:05 05:05 WBC 12.9 H (4.8-10.8) x10^3/uL RBC 3.28 L (4.70-6.10) 10^6/uL Hgb 10.3 L (14.0-18.0) g/dL Hct 31.2 L (42.0-52.0) % MCV 95.1 H (80.0-94.0) fL MCH 31.4 H (27.0-31.0) pg MCHC 33.0 (32.0-36.0) g/dL RDW 13.9 (12.0-15.0) % Plt Count 281 (130-450) 10^3/uL MPV 9.9 (7.4-11.4) fL Neut # (Auto) 10.8 H (1.5-6.6) 10^3/uL Lymph # (Auto) 0.9 L (1.5-3.5) 10^3/uL [place] # (Auto) 1.0 (0.0-1.0) 10^3/uL Eos # (Auto) 0.1 (0.0-0.7) 10^3/uL Baso # (Auto) 0.0 (0.0-0.1) 10^3/uL Absolute Nucleated RBC 0.00 x10^3/uL Nucleated RBC % 0.0 /100WBC Sodium 140 (135-145) mmol/L Potassium 3.1 L (3.5-5.0) mmol/L Chloride 107 (101-111) mmol/L Carbon Dioxide 22 (21-32) mmol/L Anion Gap 11.0 (6-13) BUN 18 (6-20) mg/dL Creatinine 0.8 (0.6-1.2) mg/dL Estimated GFR (MDRD) 93 (>89) Glucose 106 H (70-100) mg/dL Calcium 7.7 L (8.5-10.3) mg/dL - Imaging Results Imaging Results Comments: CT consistent with perforated appendicitis with liver abscess - Current Medications Current Medications: Current Medications Generic Name Dose Route Start Last Admin Trade Name Freq PRN Reason Stop Dose Admin Docusate Sodium 250 mg 08/28/21 09:00 08/30/21 08:59 Docusate Sodium 250 Mg Capsule PO Not Given DAILY [facility] Enoxaparin Sodium 40 mg 08/28/21 09:00 08/30/21 09:02 Enoxaparin 40 Mg/0.4 Ml Syringe SUBQ 40 mg DAILY [facility] Administration Furosemide 20 mg 08/28/21 09:00 08/30/21 08:59 Furosemide 20 Mg/2 Ml Vial IVP 20 mg Q48H [facility] Administration Piperacillin Sod/Tazobactam 100 mls @ 25 mls/hr 08/28/21 04:00 08/30/21 11:34 Sod 3.375 gm/ Sodium Chloride IV 25 mls/hr Q8H [facility] Administration Lactated Ringer's 1,000 mls @ 85 mls/hr 08/28/21 08:59 08/30/21 08:58 Lr IV 85 mls/hr .[id number] [facility] Administration Sodium Chloride 500 mls @ 20 mls/hr 08/28/21 11:09 08/28/21 11:15 Normal Saline 0.9% IV Infused Q24H PRN Infusion TKO RATE Sodium Chloride 10 ml 08/28/21 01:00 08/30/21 08:59 Sodium Chloride Flush 0.9% 10 Ml Syringe IVP 10 ml 0100,0900,1700 [facility] Administration - Physical Exam Respiratory: positive: No respiratory distress Abdomen: positive: Tenderness. negative: Guarding, Rebound Extremities: positive: Non-tender Neurologic/Psychiatric: positive: Disoriented to time ABX Reporting Has patient been on IV antibiotics over the past 48 hours?: Yes Impression/Plan - Problem List Problem List: Perforated viscus. CT shows a large liver abscess not no intra-abdominal abscess or definite site of perforation. He is without signs of overt sepsis. Recommend percutaneous drainage of liver abscess. No solid indication for operative intervention currently.
--- NOTE | 2021-08-30 17:44 | PROVIDER PROGRESS NOTE ---
Subjective - Prog Note Date Prog Note Date: 08/30/21 Prog Note Time: 17:43 - Subjective Subjective: He is confused. Tells me he does not know where he is and why he is here. Says he does not have a very good appetite. Abdomen does not hurt very much. There have been no fevers, no chills. No diarrhea. Current Medications - Current Medications Current Medications: Active Medications Docusate Sodium (Docusate Sodium 250 Mg Capsule) 250 mg PO DAILY [facility] Last Admin: 08/30/21 08:59 Dose: Not Given Documented by: Enoxaparin Sodium (Enoxaparin 40 Mg/0.4 Ml Syringe) 40 mg SUBQ DAILY [facility] Last Admin: 08/30/21 09:02 Dose: 40 mg Documented by: Furosemide (Furosemide 20 Mg/2 Ml Vial) 20 mg IVP Q48H [facility] Last Admin: 08/30/21 08:59 Dose: 20 mg Documented by: Piperacillin Sod/Tazobactam (Sod 3.375 gm/ Sodium Chloride) 100 mls @ 25 mls/hr IV Q8H [facility] Last Infusion: 08/30/21 15:35 Dose: Infused Documented by: Lactated Ringer's (Lr) 1,000 mls @ 85 mls/hr IV .[id number] [facility] Last Admin: 08/30/21 08:58 Dose: 85 mls/hr Documented by: Sodium Chloride (Normal Saline 0.9%) 500 mls @ 20 mls/hr IV Q24H PRN PRN Reason: TKO RATE Last Infusion: 08/28/21 11:15 Dose: Infused Documented by: Metoprolol Tartrate (Metoprolol 5 Mg/5 Ml Vial) 5 mg IVP Q8H PRN PRN Reason: Hypertensive Emergency Mineral Oil (Mineral Oil 473 Ml Bottle) 30 ml PO DAILY PRN PRN Reason: Constipation Mineral Oil (Min Oil/Dimethicon/Coconut Oil 92 Gm Tube) 1 applic TOP PRN PRN PRN Reason: Skin Care Morphine Sulfate (Morphine 2 Mg/Ml Carpuject) 2 mg IVP Q2HR PRN PRN Reason: Pain 8 to 10 Multi-Ingredient Ointment (Zinc Oxide 20% Oint 30 Gm Tube) 1 applic TOP PRN PRN PRN Reason: Skin Care Ondansetron HCl (Ondansetron Odt 4 Mg Tablet) 4 mg TL Q6HR PRN PRN Reason: Nausea / Vomiting Ondansetron HCl (Ondansetron 4 Mg/2 Ml Vial) 4 mg IVP Q6HR PRN PRN Reason: Nausea / Vomiting Sodium Chloride (Sodium Chloride Flush 0.9% 10 Ml Syringe) 10 ml IVP PRN PRN PRN Reason: NEEDED PER PROVIDER ORDERS Sodium Chloride (Sodium Chloride Flush 0.9% 10 Ml Syringe) 10 ml IVP 0100,0900,1700 [facility] Last Admin: 08/30/21 16:12 Dose: Not Given Documented by: Aspirin [Children's Aspirin] 81 mg PO DAILY 12/28/19 Atorvastatin Calcium 40 mg PO DAILY 12/28/19 Acetaminophen 650 mg PO Q4HR PRN 07/04/20 Cyanocobalamin (Vitamin B-12) [Vitamin B-12 (1000 mcg sublingual)] 1 tab PO DAILY 07/04/20 Metoprolol Tartrate 25 mg PO BID 07/04/20 Quetiapine Fumarate 25 mg PO BID 07/04/20 Sennosides/Docusate Sodium [Senna Plus 8.6-50 mg Tablet] 1 tab PO BID PRN 07/04/20 Multivit-Min/Folic/Vit K/Lycop [One Daily Men's 50 Plus D3 Tab] 1 each PO DAILY 08/27/21 Objective - Vital Signs/Intake & Output Reviewed Vital Signs: Yes Vital Signs: Vital Signs x48h Temp Pulse Resp BP Pulse Ox 08/30/21 16:00 36.9 C 55 L 18 156/67 H 97 Intake & Output: Intake & Output 08/27/21 08/28/21 08/29/21 08/30/21 23:59 23:59 23:59 23:59 Intake Total 1450 3164.333 4239.166 1790.417 Output Total 400 250 Balance 1450 2764.333 4239.166 1540.417 - Objective General Appearance: positive: No acute distress, Alert Eyes Bilateral: positive: PERRL, EOMI ENT: positive: No signs of dehydration Neck: positive: No JVD. negative: Stiff neck Respiratory: positive: No respiratory distress. negative: Wheezes, Rales, Rhonchi Cardiovascular: positive: Regular rate & rhythm, Systolic murmur. negative: Gallop/S4, Friction rub Abdomen: positive: No distention, Tenderness (When I admitted him it was right lower quadrant. In the next day left lower quadrant. On the third day no abdominal pain. Today he has mild bilateral diffuse lower abdominal pain but no rebound or guarding. Not distended. Not firm.), Abnml bowel sounds (Hypoactive). negative: Guarding, Rebound Skin: positive: Warm, Dry, Pallor Extremities: positive: Full ROM, No pedal edema Neurologic/Psychiatric: positive: CN's nml (2-12), Motor nml, Disoriented to place, Disoriented to time - Lab Results Fish Bones: 08/30/21 05:05 08/30/21 05:05 Other Labs: Lab Results x24hrs 08/30/21 08/30/21 Range/Units 05:05 05:05 WBC 12.9 H (4.8-10.8) x10^3/uL RBC 3.28 L (4.70-6.10) 10^6/uL Hgb 10.3 L (14.0-18.0) g/dL Hct 31.2 L (42.0-52.0) % MCV 95.1 H (80.0-94.0) fL MCH 31.4 H (27.0-31.0) pg MCHC 33.0 (32.0-36.0) g/dL RDW 13.9 (12.0-15.0) % Plt Count 281 (130-450) 10^3/uL MPV 9.9 (7.4-11.4) fL Neut # (Auto) 10.8 H (1.5-6.6) 10^3/uL Lymph # (Auto) 0.9 L (1.5-3.5) 10^3/uL [place] # (Auto) 1.0 (0.0-1.0) 10^3/uL Eos # (Auto) 0.1 (0.0-0.7) 10^3/uL Baso # (Auto) 0.0 (0.0-0.1) 10^3/uL Absolute Nucleated RBC 0.00 x10^3/uL Nucleated RBC % 0.0 /100WBC Sodium 140 (135-145) mmol/L Potassium 3.1 L (3.5-5.0) mmol/L Chloride 107 (101-111) mmol/L Carbon Dioxide 22 (21-32) mmol/L Anion Gap 11.0 (6-13) BUN 18 (6-20) mg/dL Creatinine 0.8 (0.6-1.2) mg/dL Estimated GFR (MDRD) 93 (>89) Glucose 106 H (70-100) mg/dL Calcium 7.7 L (8.5-10.3) mg/dL - Diagnostic Imaging Diagnostic Imaging Results: positive: Final report reviewed, Discussed with rad iologist Diagnostic Imaging Comments: He has liver abscesses, small amount of free air around the perforated site. In retrospect the radiologist feels that it is perforated appendicitis. ABX Reporting Has patient been on IV antibiotics over the past 48 hours?: Yes Assessment/Plan - Problem List (1) Perforated abdominal viscus Impression: Due to appendicitis and now with Liver abcesses. General surgery has already seen the patient and shared with me that they felt that he had quite a bit of hardened, impacted stool in the rectal vault and lower bowel. This is most likely what caused the perforation. They do not want enemas. But they do want manual disimpaction. The zosyn they requested is currently being given. Plan was to repeat his CAT scan after the third day. He had it done today and unfortunately it shows probable appendicitis that ruptured, small amount of free air, and liver abscesses now. General surgery has carefully, carefully reviewed the case and the CT. Plan: Single agent Zosyn, Day #4 Daily CBC: 12.4>>12.0>> 14.9>>12.9 today Surgery feels the patient is hemodynamically stable. They do not plan to take him to the operating room. Please review their note. At this time we are to continue antibiotics, and he is to get interventional radiology drainage of the liver abscesses September 01. (2) Bacteremia Conclusion/Plan: Gram-negative bacteremia. Still no ID this morning. Differential diagnosis before I knew the results of the CT would include bowel, bladder, rarely lung in a patient that had not been already hospitalized. At this point in time is been narrowed down to perforated viscus. This has no changed as of 08/29 No return yet on identification for the bacteremia. Anaerobic identification and susceptibility sent to [facility] Blood cultures were ordered yesterday. However the lab is unable to draw them. Plan: Continue to repeat blood cultures. (3) Acute metabolic encephalopathy Conclusion/Plan: This mario gentleman is unfortunately already with baseline dementia. Has a bi architect. I suspect that his acute encephalopathy that the assisted living facility is describing is due to the perforated viscus and infection. He has been hydrated, received antibiotics, and is currently showing mild signs of improvement of his encephalitic based confusion. Most likely this should continue to improve as treatment progresses assuming the underlying infectious c ondition resolves. (4) Elevated liver enzymes, chronic Conclusion/Plan: In review of his past medical history this is a chronic problem for him. I have noted that the CT scan from [facility] in March 2020 did not show cirrhosis, esophageal varices. He did have sludge in the gallbladder. Plan: Hepatitis panel resulted negative for signs of hepatitis with all values being non-reactive. (5) Pneumonia Conclusion/Plan: Although he is asymptomatic on physical exam, he does have pneumonia on both chest x-ray as well as CT. He received Rocephin and azithromycin to start out within the ER but now that we know he has a perforated bowel he is on single agent Zosyn. I suspect that he may be lethargic and aspirating. Zosyn should cover him for anaerobic bacteria. I will add azithromycin for 3 days only. Today Day #3 Azithromycin completed and now stopped, Day#4 Zosyn Gurgling on exam so will reduce overall IVF to 85 cc/hr and hold this while he gets his K riders. 10/15 gurgling resolved upon physical exam and patients breathing has improved.10/16 continues to be clear. Qualifiers: Pneumonia type: due to unspecified organism Laterality: right Lung location: lower lobe of lung Qualified Code(s): J18.9 - Pneumonia, unspecified organism (6) Enlarged heart Conclusion/Plan: Noted on CT scan. He did have an echocardiogram done at [facility] in March 2020 but the discharge summary that I read did not note the results. His echo done here at [facility] on the showed increased RSVP suggestive of pulmonary HTN. Likely due to a lung etiology from hx of smoking. Currently this is not a priority to decide terminal operations supervisor course of treatment for this pulm htn gi kevin his infection status and bowel pathology. Ejection fraction 60 to 65%. Grade 1 diastolic dysfunction. Right ventricle normal. Mild tricuspid regurgitation. RVSP at rest 57 with moderately abnormal right heart pressures. plan: Get the echo report from [facility], [facility] [place] here will contact them. Still have not gotten it as of 08/30 Monitor intake and output to make sure we do not fluid overload him. I have reduced IVF rate and will started lasix qod.This will needed to be taken into account for further surgical evaluation. Will make sure to let surgeon know. (7) Dementia associated with alcoholism Conclusion/Plan: In reviewing the medical record he has a gradually progressive dementia. Significant drop in cognitive function between 2018 and April 2021 when a bi architect was appointed. In reviewing his medical record from [facility], he has a DURABLE POWER OF BOW REPAIRER CUSTOM where he assigns his power of attorney at law followed by his daughter Marilou, followed by someone else. However the bi architect came in April 2021 and I assume that that supersedes that DURABLE POWER OF BOW REPAIRER CUSTOM. Dr. Nye let me know she spoke to son and HE is now the guardian as of one month ago. There are two sons from a previous relationship who showed up in the patients life as he was and deteriorating from alcohol abuse. They contested financial arrangements, so temporary guardian appointed separate from family. Then his son from second relationship is now guardian. Qualifiers: Dementia behavioral disturbance: without behavioral disturbance Qualified Code(s): F10.27 - Alcohol dependence with alcohol-induced persisting dementia No change 08/29 (8) Dehydration resolved. Conclusion/Plan: Noted mainly through BUN, and interrogation of the inferior vena cava. His lab work has not been remarkable for severe acute kidney injury. Plan: Hydration with IV fluids. Check labs daily. Am avoiding fluid overload especially in view of the fact of an enlarged heart on yesterdays CT scan. No change 08/29 (9) Hypokalemia continues today K riders given. K+ decreased from 3.0 to 2.8. Difficult to ascertain the cause of this continued K+ loss despite supplementation. Will continue K+ supplementation IV and monitor. (10) Hyperglycemia no history of DM. Will continue to monitor and treat if necessary. Stable as of 08/29
[2021-08-31] MEDS: SODIUM CHLORIDE FLUSH 0.9% 10 ML SYRINGE IVP SCH ×3 (00:01→16:22)
[2021-08-31] MEDS: MIN OIL/DIMETHICON/COCONUT OIL 92 GM TUBE TOP PRN (00:05)
[2021-08-31] MEDS: PIPERACILLIN/TAZOBACTAM 3.375 GM in SODIUM CHLORIDE 0.9% MINIBAG 100 ML IV SCH ×3 (04:11→19:56)
[2021-08-31 06:22] LABS: BASOPHILS % (AUTO) 0.3 %; EOSINOPHILS % (AUTO) 1.6 %; HCT - HEMATOCRIT 33.5 % (42.0-52.0); HGB - HEMOGLOBIN 11.2 g/dL (14.0-18.0); MEAN CORPUSCULAR HEMOGLOBIN 31.3 pg (27.0-31.0); MEAN CORPUSCULAR HGB CONC 33.4 g/dL (32.0-36.0); MEAN CORPUSCULAR VOLUME 93.6 fL (80.0-94.0); MONOCYTES % (AUTO) 8.2 %; PLT - PLATELET COUNT 303 10^3/uL (130-450); RED BLOOD COUNT 3.58 10^6/uL (4.70-6.10); RED CELL DISTRIBUTION WIDTH 13.9 % (12.0-15.0); WHITE BLOOD COUNT 11.7 x10^3/uL (4.8-10.8)
[2021-08-31 06:28] LABS: ABNORMAL LYMPHS % (MANUAL) 0 %
[2021-08-31 06:30] LABS: CALCIUM 7.7 mg/dL (8.5-10.3); CREATININE 0.8 mg/dL (0.6-1.2); POTASSIUM 2.8 mmol/L (3.5-5.0)
[2021-08-31 07:01] LABS: BAND NEUTROPHILS % (MANUAL) 2 %; EOSINOPHILS # (MANUAL) 0.1 10^3/uL (0-0.7); LYMPHOCYTES # (MANUAL) 1.5 10^3/uL (1.5-3.5); LYMPHOCYTES % (MANUAL) 13 %; MONOCYTES # (MANUAL) 0.9 10^3/uL (0.0-1.0); NEUTROPHILS # (MANUAL) 9.1 10^3/uL (1.5-6.6)
[2021-08-31 07:02] LABS: DIFFERENTIAL COMMENT MANUAL DIFFERENTIAL
[2021-08-31] MEDS: LACTATED RINGERS 1,000 ML IV SCH ×2 (08:02→19:53)
[2021-08-31] MEDS: ENOXAPARIN 40 MG/0.4 ML SYRINGE SUBQ SCH (08:09)
[2021-08-31] MEDS: DOCUSATE SODIUM 250 MG CAPSULE PO SCH (08:09)
[2021-08-31] MEDS: POTASSIUM CHLOR 10 MEQ/100 ML 10 MEQ/100 ML BAG IV SCH ×8 (08:55→19:03)
--- NOTE | 2021-08-31 14:43 | PROVIDER PROGRESS NOTE ---
Subjective - General Admit Date: 08/27/21 - Other Other Information/Narrative: Much more alert this morning. Denies any abdominal pain but reports he is not hungry and doesn't desire to eat anything. Objective - Patient Data Reviewed Vital Signs: Yes Vital Signs: Vital Signs x48h Temp Pulse Resp BP Pulse Ox 08/31/21 08:00 36.6 C 50 L 16 149/59 H 97 Intake & Output: Intake and Output Totals x24h 08/29/21 08/30/21 08/31/21 23:59 23:59 23:59 Intake Total 4239.166 2776.417 1814.667 Output Total 250 Balance 4239.166 2526.417 1814.667 - Lab Results Lab Results: 08/31/21 05:37 08/31/21 05:37 Other Lab Results: Lab Results x24hrs 08/31/21 08/31/21 Range/Units 05:37 05:37 WBC 11.7 H (4.8-10.8) x10^3/uL RBC 3.58 L (4.70-6.10) 10^6/uL Hgb 11.2 L (14.0-18.0) g/dL Hct 33.5 L (42.0-52.0) % MCV 93.6 (80.0-94.0) fL MCH 31.3 H (27.0-31.0) pg MCHC 33.4 (32.0-36.0) g/dL RDW 13.9 (12.0-15.0) % Plt Count 303 (130-450) 10^3/uL MPV 10.0 (7.4-11.4) fL Neut # (Auto) Not Reportable Lymph # (Auto) Not Reportable [place] # (Auto) Not Reportable Eos # (Auto) Not Reportable Baso # (Auto) Not Reportable Absolute Nucleated RBC Not Reportable Total Counted 100 Band Neuts % (Manual) 2 (0 - 10) % Abnorm Lymph % (Manual) 0 % Nucleated RBC % Not Reportable Neutrophils # (Manual) 9.1 H (1.5-6.6) 10^3/uL Lymphocytes # (Manual) 1.5 (1.5-3.5) 10^3/uL Monocytes # (Manual) 0.9 (0.0-1.0) 10^3/uL Eosinophils # (Manual) 0.1 (0-0.7) 10^3/uL Basophils # (Manual) 0.0 (0-0.1) 10^3/uL Differential Comment MANUAL DIFFERENTIAL Sodium 140 (135-145) mmol/L Potassium 2.8 L (3.5-5.0) mmol/L Chloride 103 (101-111) mmol/L Carbon Dioxide 27 (21-32) mmol/L Anion Gap 10.0 (6-13) BUN 13 (6-20) mg/dL Creatinine 0.8 (0.6-1.2) mg/dL Estimated GFR (MDRD) 93 (>89) Glucose 101 H (70-100) mg/dL Calcium 7.7 L (8.5-10.3) mg/dL - Imaging Results Imaging Results Comments: Liver abscess per previous note - Current Medications Current Medications: Current Medications Generic Name Dose Route Start Last Admin Trade Name Freq PRN Reason Stop Dose Admin Docusate Sodium 250 mg 08/28/21 09:00 08/31/21 08:09 Docusate Sodium 250 Mg Capsule PO 250 mg DAILY [facility] Administration Enoxaparin Sodium 40 mg 08/28/21 09:00 08/31/21 08:09 Enoxaparin 40 Mg/0.4 Ml Syringe SUBQ 40 mg DAILY [facility] Administration Furosemide 20 mg 08/28/21 09:00 08/30/21 08:59 Furosemide 20 Mg/2 Ml Vial IVP 20 mg Q48H [facility] Administration Piperacillin Sod/Tazobactam 100 mls @ 25 mls/hr 08/28/21 04:00 08/31/21 12:14 Sod 3.375 gm/ Sodium Chloride IV 25 mls/hr Q8H [facility] Administration Lactated Ringer's 1,000 mls @ 85 mls/hr 08/28/21 08:59 08/31/21 08:02 Lr IV 85 mls/hr .[id number] [facility] Administration Sodium Chloride 500 mls @ 20 mls/hr 08/28/21 11:09 08/28/21 11:15 Normal Saline 0.9% IV Infused Q24H PRN Infusion TKO RATE Potassium Chloride 10 meq in 100 mls @ 100 mls/hr 08/31/21 08:00 10/17/21 14:39 Potassium Chloride IV 08/31/21 15:59 100 mls/hr Q1H [facility] Administration Mineral Oil 1 applic 08/30/21 05:31 08/31/21 00:05 Min Oil/Dimethicon/Coconut Oil 92 Gm Tube TOP 1 applic PRN PRN Administration Skin Care Sodium Chloride 10 ml 08/28/21 01:00 08/31/21 12:44 Sodium Chloride Flush 0.9% 10 Ml Syringe IVP Not Given 0100,0900,1700 [facility] - Physical Exam Abdomen: positive: Nml bowel sounds, No distention, Tenderness (minimal with palpation) ABX Reporting Has patient been on IV antibiotics over the past 48 hours?: Yes Impression/Plan - Problem List Problem List: Stable on current antibiotic therapy. Plan is for image guided drainage of liver abscess in the AM. Encourage po intake. NPO after midnight for procedure
[2021-09-01] MEDS: SODIUM CHLORIDE FLUSH 0.9% 10 ML SYRINGE IVP SCH ×3 (00:19→16:52)
[2021-09-01] MEDS: SODIUM CHLORIDE 0.9% 500 ML IV PRN (00:19)
[2021-09-01] MEDS: LACTATED RINGERS 1,000 ML IV SCH (03:45)
[2021-09-01] MEDS: PIPERACILLIN/TAZOBACTAM 3.375 GM in SODIUM CHLORIDE 0.9% MINIBAG 100 ML IV SCH ×3 (04:01→20:01)
[2021-09-01 05:41] LABS: BASOPHILS % (AUTO) 0.4 %; EOSINOPHILS % (AUTO) 1.3 %; HCT - HEMATOCRIT 31.7 % (42.0-52.0); HGB - HEMOGLOBIN 10.8 g/dL (14.0-18.0); LYMPHOCYTES % (AUTO) 10.6 %; MEAN CORPUSCULAR HEMOGLOBIN 31.8 pg (27.0-31.0); MEAN CORPUSCULAR HGB CONC 34.1 g/dL (32.0-36.0); MEAN CORPUSCULAR VOLUME 93.2 fL (80.0-94.0); MEAN PLATELET VOLUME 8.9 fL (7.4-11.4); MONOCYTES % (AUTO) 9.1 %; NEUTROPHILS % (AUTO) 75.7 %; PLT - PLATELET COUNT 344 10^3/uL (130-450); RED CELL DISTRIBUTION WIDTH 14.3 % (12.0-15.0); WHITE BLOOD COUNT 11.7 x10^3/uL (4.8-10.8)
[2021-09-01 05:49] LABS: ABNORMAL LYMPHS % (MANUAL) 0 %
[2021-09-01 05:54] LABS: CALCIUM 7.5 mg/dL (8.5-10.3); CREATININE 0.8 mg/dL (0.6-1.2); POTASSIUM 2.9 mmol/L (3.5-5.0)
[2021-09-01 06:12] LABS: BAND NEUTROPHILS % (MANUAL) 1 %; DIFFERENTIAL COMMENT MANUAL DIFFERENTIAL; EOSINOPHILS # (MANUAL) 0.2 10^3/uL (0-0.7); LYMPHOCYTES # (MANUAL) 1.6 10^3/uL (1.5-3.5); LYMPHOCYTES % (MANUAL) 14 %; MONOCYTES # (MANUAL) 0.7 10^3/uL (0.0-1.0); NEUTROPHILS # (MANUAL) 9.1 10^3/uL (1.5-6.6); PLATELET ESTIMATE, MANUAL NORMAL (130-450,000) (NORMAL); PLATELET MORPHOLOGY NORMAL APPEARANCE (NORMAL); RBC MORPHOLOGY (MULTIPLE) NORMAL APPEARANCE (NORMAL); WBC MORPHOLOGY (MULTIPLE) NORMAL APPEARANCE (NORMAL)
[2021-09-01] MEDS: NS W/20 MEQ KCL 1,000 ML IV SCH ×2 (08:12→17:27)
[2021-09-01] MEDS: POTASSIUM CHLOR 10 MEQ/100 ML 10 MEQ/100 ML BAG IV SCH ×4 (08:19→12:07)
[2021-09-01] MEDS: DOCUSATE SODIUM 250 MG CAPSULE PO SCH (08:19)
[2021-09-01] MEDS: ENOXAPARIN 40 MG/0.4 ML SYRINGE SUBQ SCH (08:26)
[2021-09-01 09:10] LABS: INR 1.9 (0.8-1.2); PT - PROTHROMBIN TIME 21.1 secs (9.9-12.6)
[2021-09-01] MEDS: FUROSEMIDE 20 MG/2 ML VIAL IVP SCH (09:14)
[2021-09-01] MEDS: SODIUM CHLORIDE FLUSH 0.9% 10 ML SYRINGE IVP PRN (09:15)
[2021-09-01] MEDS: MAGNESIUM OXIDE 400 MG TABLET PO SCH (10:46)
[2021-09-01] MEDS: ZINC OXIDE 20% OINT 30 GM TUBE TOP PRN ×3 (11:44→21:38)
--- NOTE | 2021-09-01 17:10 | PROVIDER PROGRESS NOTE ---
Subjective - General Admit Date: 08/27/21 - Other Other Information/Narrative: No change today. Continues to have multiple small bowel movements. They seem to be getting softer. Scheduled for image guided drainage today but this was delayed due to an elevated INR and has been rescheduled for tomorrow morning.He denies any abdominal pain. Appears comfortable. Objective - Patient Data Vital Signs: Vital Signs x48h Temp Pulse Resp BP Pulse Ox 09/01/21 15:49 37.1 C 64 21 154/54 H 97 Intake & Output: Intake and Output Totals x24h 08/30/21 08/31/21 09/01/21 23:59 23:59 23:59 Intake Total 2776.417 2832.501 2327.283 Output Total 250 Balance 2526.417 2832.501 2327.283 - Lab Results Lab Results: 09/01/21 05:20 09/01/21 05:20 Other Lab Results: Lab Results x24hrs 09/01/21 09/01/21 09/01/21 Range/Units 14:42 08:56 05:20 WBC (4.8-10.8) x10^3/uL RBC (4.70-6.10) 10^6/uL Hgb (14.0-18.0) g/dL Hct (42.0-52.0) % MCV (80.0-94.0) fL MCH (27.0-31.0) pg MCHC (32.0-36.0) g/dL RDW (12.0-15.0) % Plt Count (130-450) 10^3/uL MPV (7.4-11.4) fL Neut # (Auto) Lymph # (Auto) [place] # (Auto) Eos # (Auto) Baso # (Auto) Absolute Nucleated RBC Total Counted Band Neuts % (Manual) (0 - 10) % Abnorm Lymph % (Manual) % Nucleated RBC % Neutrophils # (Manual) (1.5-6.6) 10^3/uL Lymphocytes # (Manual) (1.5-3.5) 10^3/uL Monocytes # (Manual) (0.0-1.0) 10^3/uL Eosinophils # (Manual) (0-0.7) 10^3/uL Basophils # (Manual) (0-0.1) 10^3/uL Differential Comment WBC Morphology (NORMAL) Platelet Estimate (NORMAL) Platelet Morphology (NORMAL) RBC Morph Micro Appear (NORMAL) PT 21.1 H (9.9-12.6) secs INR 1.9 H (0.8-1.2) Sodium (135-145) mmol/L Potassium (3.5-5.0) mmol/L Chloride (101-111) mmol/L Carbon Dioxide (21-32) mmol/L Anion Gap (6-13) BUN (6-20) mg/dL Creatinine (0.6-1.2) mg/dL Estimated GFR (MDRD) (>89) Glucose (70-100) mg/dL Calcium (8.5-10.3) mg/dL Blood Type A POSITIVE Blood Type Recheck A POSITIVE 09/01/21 09/01/21 Range/Units 05:20 05:20 WBC 11.7 H (4.8-10.8) x10^3/uL RBC 3.40 L (4.70-6.10) 10^6/uL Hgb 10.8 L (14.0-18.0) g/dL Hct 31.7 L (42.0-52.0) % MCV 93.2 (80.0-94.0) fL MCH 31.8 H (27.0-31.0) pg MCHC 34.1 (32.0-36.0) g/dL RDW 14.3 (12.0-15.0) % Plt Count 344 (130-450) 10^3/uL MPV 8.9 (7.4-11.4) fL Neut # (Auto) Not Reportable Lymph # (Auto) Not Reportable [place] # (Auto) Not Reportable Eos # (Auto) Not Reportable Baso # (Auto) Not Reportable Absolute Nucleated RBC Not Reportable Total Counted 100 Band Neuts % (Manual) 1 (0 - 10) % Abnorm Lymph % (Manual) 0 % Nucleated RBC % Not Reportable Neutrophils # (Manual) 9.1 H (1.5-6.6) 10^3/uL Lymphocytes # (Manual) 1.6 (1.5-3.5) 10^3/uL Monocytes # (Manual) 0.7 (0.0-1.0) 10^3/uL Eosinophils # (Manual) 0.2 (0-0.7) 10^3/uL Basophils # (Manual) 0.0 (0-0.1) 10^3/uL Differential Comment MANUAL DIFFERENTIAL WBC Morphology NORMAL APPEARANCE (NORMAL) Platelet Estimate NORMAL (130-450,000) (NORMAL) Platelet Morphology NORMAL APPEARANCE (NORMAL) RBC Morph Micro Appear NORMAL APPEARANCE (NORMAL) PT (9.9-12.6) secs INR (0.8-1.2) Sodium 138 (135-145) mmol/L Potassium 2.9 L (3.5-5.0) mmol/L Chloride 102 (101-111) mmol/L Carbon Dioxide 24 (21-32) mmol/L Anion Gap 12.0 (6-13) BUN 9 (6-20) mg/dL Creatinine 0.8 (0.6-1.2) mg/dL Estimated GFR (MDRD) 93 (>89) Glucose 104 H (70-100) mg/dL Calcium 7.5 L (8.5-10.3) mg/dL Blood Type Blood Type Recheck - Current Medications Current Medications: Current Medications Generic Name Dose Route Start Last Admin Trade Name Freq PRN Reason Stop Dose Admin Docusate Sodium 250 mg 08/28/21 09:00 09/01/21 08:19 Docusate Sodium 250 Mg Capsule PO Not Given DAILY LAVONNE Furosemide 20 mg 08/28/21 09:00 09/01/21 09:14 Furosemide 20 Mg/2 Ml Vial IVP 20 mg Q48H LAVONNE Administration Piperacillin Sod/Tazobactam 100 mls @ 25 mls/hr 08/28/21 04:00 09/01/21 16:14 Sod 3.375 gm/ Sodium Chloride IV Infused Q8H LAVONNE Infusion Sodium Chloride 500 mls @ 20 mls/hr 08/28/21 11:09 09/01/21 00:19 Normal Saline 0.9% IV 20 mls/hr Q24H PRN Administration TKO RATE Potassium Chloride/Sodium Chloride 1,000 mls @ 100 mls/hr 09/01/21 08:00 09/01/21 15:00 Normal Saline 0.9% W/20 Meq Kcl IV 100 mls/hr .Q10H LAVONNE Infusion Magnesium Oxide 400 mg 09/01/21 09:00 09/01/21 10:46 Magnesium Oxide 400 Mg Tablet PO 400 mg DAILYWM [facility] Administration Mineral Oil 1 applic 08/30/21 05:31 08/31/21 00:05 Min Oil/Dimethicon/Coconut Oil 92 Gm Tube TOP 1 applic PRN PRN Administration Skin Care Multi-Ingredient Ointment 1 applic 08/28/21 11:59 09/01/21 16:52 Zinc Oxide 20% Oint 30 Gm Tube TOP 1 applic PRN PRN Administration Skin Care Sodium Chloride 10 ml 08/27/21 17:44 09/01/21 09:15 Sodium Chloride Flush 0.9% 10 Ml Syringe IVP 10 ml PRN PRN Administration NEEDED PER PROVIDER ORDERS Sodium Chloride 10 ml 08/28/21 01:00 09/01/21 16:52 Sodium Chloride Flush 0.9% 10 Ml Syringe IVP Not Given 0100,0900,1700 [facility] - Physical Exam Abdomen: positive: Nml bowel sounds. negative: No distention, Tenderness, Guarding, Rebound ABX Reporting Has patient been on IV antibiotics over the past 48 hours?: No Impression/Plan - Problem List Problem List: Unfortunate 80-year-old gentleman with a perforated viscus of either the sigmoid colon, right colon, or appendix. All have been postulated as sources of contamination. There is no specific inflammation in the abdomen other than generally the right lower side. He does have a moderate size hepatic abscess and will be having drainage in the morning. Agree with all excellent medical care.
--- NOTE | 2021-09-01 18:29 | PROVIDER PROGRESS NOTE ---
Progress Note Unfortunately he was unable to have his interventional radiology drainage today. It was too late in the afternoon but the time FFP was available and radiology was not can to be here beyond 430. Message has been canceled and scheduled for tomorrow. Mr. Cruz himself is essentially unchanged. Confused. Cooperative. Afebrile. Blood pressure stable. Does not have a great appetite. Ambulating in his room. Temperature is 37.1 heart rate is 64 blood pressure 154/54 respirations 20 and is 97% on room air. Neck is supple Lungs are clear. Unlabored respiration. Abdomen is soft. He is surprised by everything I am telling him about his CAT scan and he says he just does not hurt that much anymore. But he is cupola tender helper in the right lower quadrant, but minimally so. No rebound or guarding. Normal bowel sounds. Extremities are without edema. He is sleepy. Forgetful. But easily prompted. He has urinary incontinence. Deaf. Assessment/plan (1) perforated abdominal viscus due to appendicitis and now with liver abscess. General surgery has already seen the patient and shared with me that they felt that he had quite a bit of hardened, impacted stool in the rectal vault and lower bowel. This is most likely what caused the perforation. They do not want enemas. But they do want manual disimpaction. The zosyn they requested is currently being given. Plan was to repeat his CAT scan after the third day. He had it done 08/31 and unfortunately it shows probable appendicitis that ruptured, small amount of free air, and liver abscesses now. General surgery has carefully, carefully reviewed the case and the CT. Plan: Single agent Zosyn, Day #4 Daily CBC: 12.4>>12.0>> 14.9>>12.9>>11.7 today Surgery feels the patient is hemodynamically stable. They do not plan to take him to the operating room. Please review their note. At this time we are to continue antibiotics, and he was to get interventional radiology drainage of the liver abscesses today but due to elevated INR, need for FFP, case is delayed until tomorrow. (2) Bacteremia Conclusion/Plan: Gram-negative bacteremia. Still no ID this morning. Differential diagnosis before I knew the results of the CT would include bowel, bladder, rarely lung in a patient that had not been already hospitalized. At this point in time is been narrowed down to perforated viscus. This has not changed as of 09/01 No return yet on identification for the bacteremia. Anaerobic identification and susceptibility sent to [facility] Blood cultures were ordered 08/30 However the lab was unable to draw them.They then came back and redrew him August 31. That is going staph aureus. Difficult to assess if this is contamination or true bacteremia now. But is a completely different bug. Plan: Await cultures from gram-negative sensitivity to possibly change antibiotics. But he continues on single agent Zosyn considering its perforated bowel. (3) Acute metabolic encephalopathy Most likely resolved Conclusion/Plan: This mario gentleman is unfortunately already with baseline dementia. Has a social insurance adviser who is his son. Dr. Nye has spoken to him. I suspect that his acute encephalopathy that the assisted living facility is describing is due to the perforated viscus and infection. He has been hydrated, received antibiotics, and has shown signs of improvement of his encephalitic based confusion. Most likely this should continue to improve as treatment progresses assuming the underlying infectious condition resolves. (4) Elevated liver enzymes, chronic Conclusion/Plan: In review of his past medical history this is a chronic problem for him. I have noted that the CT scan from [facility] in March 2020 did not show cirrhosis, esophageal varices. He did have sludge in the gallbladder. Plan: Hepatitis panel resulted negative for signs of hepatitis with all values being non-reactive. (5) Pneumonia Conclusion/Plan: Although he is asymptomatic on physical exam, he does have pneumonia on both chest x-ray as well as CT. He received Rocephin and azithromycin to start out within the ER but now that we know he has a perforated bowel he is on single agent Zosyn. I suspect that he may be lethargic and aspirating. Zosyn should cover him for anaerobic bacteria. I will add azithromycin for 3 days only. 08/31 Day #3 Azithromycin completed and now stopped, Day#5 Zosyn He had gurgling on exam so I reduced overall IVF to 85 cc/hr and hold this while he gets his K riders. 08/29 gurgling resolved upon physical exam and patients breathing has improved.08/30, 08/31 and today continues to be clear. Qualifiers: Pneumonia type: due to unspecified organism Laterality: right Lung location: lower lobe of lung Qualified Code(s): J18.9 - Pneumonia, unspecified organism (6) Enlarged heart Conclusion/Plan: Noted on CT scan. He did have an echocardiogram done at [facility] in March 2020 but the discharge summary that I read did not note the results. His echo done here at [facility] on the showed increased RSVP suggestive of pulmonary HTN. Likely due to a lung etiology from hx of smoking. Currently this is not a priority to decide shelter course of treatment for this pulm htn given his infection status and bowel pathology. Ejection fraction 60 to 65%. Grade 1 diastolic dysfunction. Right ventricle normal. Mild tricuspid regurgitation. RVSP at rest 57 with moderately abnormal right heart pressures. plan: Get the echo report from [facility], SUPERVISOR [employer] here will contact them. Still have not gotten it as of 09/01 Monitor intake and output to make sure we do not fluid overload him. I have reduced IVF rate and will started lasix qod.This will needed to be taken into account for further surgical evaluation. Will make sure to let surgeon know. (7) Dementia associated with alcoholism Conclusion/Plan: In reviewing the medical record he has a gradually progressive dementia. Significant drop in cognitive function between 2018 and April 2021 when a social insurance adviser was appointed. In reviewing his medical record [facility], he has a DURABLE POWER OF PLANT WORKER where he assigns his power of insurance defense attorney followed by his daughter Marilou, followed by someone else. However the social insurance adviser came in April 2021 and I assume that that supersedes that DURABLE POWER OF PLANT WORKER. Dr. Nye let me know she spoke to son and HE is now the guardian as of one month ago. There are two sons from a previous relationship who showed up in the patients life as he was and deteriorating from alcohol abuse. They contested financial arrangements, so temporary guardian appointed separate from family. Then his son from second relationship is now guardian. Qualifiers: Dementia behavioral disturbance: without behavioral disturbance Qualified Code(s): F10.27 - Alcohol dependence with alcohol-induced persisting dementia No change 09/01 (8) Dehydration resolved. Conclusion/Plan: Noted mainly through BUN, and interrogation of the inferior vena cava. His lab work has not been remarkable for severe acute kidney injury. Plan: Hydration with IV fluids. Check labs daily. Am avoiding fluid overload especially in view of the fact of an enlarged heart on yesterdays CT scan. No change 09/01 (9) Hypokalemia continues today K riders have been given daily since he has been here. Difficult to ascertain the cause of this continued K+ loss despite supplementation. Will continue K+ supplementation IV and monitor. Get another Set of K riders. Recheck tomorrow. (10) Hyperglycemia no history of DM. Will continue to monitor and treat if necessary. Stable as of 09/01
[2021-09-02] MEDS: SODIUM CHLORIDE FLUSH 0.9% 10 ML SYRINGE IVP SCH ×4 (02:44→23:56)
[2021-09-02] MEDS: NS W/20 MEQ KCL 1,000 ML IV SCH ×2 (03:57→15:47)
[2021-09-02] MEDS: PIPERACILLIN/TAZOBACTAM 3.375 GM in SODIUM CHLORIDE 0.9% MINIBAG 100 ML IV SCH ×3 (03:57→20:11)
[2021-09-02 05:47] LABS: BASOPHILS # (AUTO) 0.1 10^3/uL (0.0-0.1); BASOPHILS % (AUTO) 0.4 %; EOSINOPHILS # (AUTO) 0.2 10^3/uL (0.0-0.7); EOSINOPHILS % (AUTO) 1.5 %; HCT - HEMATOCRIT 29.8 % (42.0-52.0); LYMPHOCYTES # (AUTO) 1.3 10^3/uL (1.5-3.5); LYMPHOCYTES % (AUTO) 9.2 %; MEAN CORPUSCULAR HEMOGLOBIN 31.3 pg (27.0-31.0); MEAN CORPUSCULAR HGB CONC 33.6 g/dL (32.0-36.0); MEAN CORPUSCULAR VOLUME 93.4 fL (80.0-94.0); MEAN PLATELET VOLUME 9.2 fL (7.4-11.4); MONOCYTES % (AUTO) 6.8 %; NEUTROPHILS # (AUTO) 11.1 10^3/uL (1.5-6.6); NEUTROPHILS % (AUTO) 78.7 %; PLT - PLATELET COUNT 383 10^3/uL (130-450); RED BLOOD COUNT 3.19 10^6/uL (4.70-6.10); RED CELL DISTRIBUTION WIDTH 14.3 % (12.0-15.0); WHITE BLOOD COUNT 14.1 x10^3/uL (4.8-10.8)
[2021-09-02 05:54] LABS: INR 1.8 (0.8-1.2); PT - PROTHROMBIN TIME 20.4 secs (9.9-12.6)
[2021-09-02 06:03] LABS: ALBUMIN 2.1 g/dL (3.2-5.5); BILIRUBIN,DIRECT 0.3 mg/dL (0.1-0.5); BILIRUBIN,TOTAL 1.6 mg/dL (0.2-1.0); CALCIUM 7.3 mg/dL (8.5-10.3); CREATININE 0.8 mg/dL (0.6-1.2); POTASSIUM 3.1 mmol/L (3.5-5.0); TOTAL PROTEIN 5.8 g/dL (6.7-8.2)
--- NOTE | 2021-09-02 08:27 | PROVIDER PROGRESS NOTE ---
Assessment/Plan - Problem List (1) Liver abscess Assessment/Plan: Underwent CT-guided percutaneous drainage placement today. Percutaneous tubes draining lawrence, purulent material. Gram stain shows gram-positive cocci. Patient is on Zosyn. Will continue. White blood cell count today was 14.1. Anticipating improvement in patient's white blood cell count. (2) Perforated abdominal viscus Assessment/Plan: On Zosyn IV. Percutaneous drainage tubes in place General Surgery following No surgical intervention at the moment per surgery (3) Bacteremia Assessment/Plan: Staph aureus grew. Patient is on Zosyn. We will continue. (4) Pulmonary edema Assessment/Plan: On Lasix 20 mg IV every 48 hours. (5) Pneumonia Assessment/Plan: Chest x-ray done at admission suggested pneumonia. He was initially on Rocephin and azithromycin. His antibiotics were subsequently switched to Zosyn. (6) Elevated liver enzymes Assessment/Plan: Improved/resolved. We will continue to monitor. (7) Acute metabolic encephalopathy Assessment/Plan: Improving. This could be secondary to patient's infection. On spacing continued improvement. Will monitor. 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 This is thought to be secondary to alcohol abuse. Patient is not on any medication. No behavioral disturbances noted. - Current Meds Current Meds: Current Medications Generic Name Dose Route Start Last Admin Trade Name Wesley PRN Reason Stop Dose Admin Docusate Sodium 250 mg 08/28/21 09:00 09/01/21 08:19 Docusate Sodium 250 Mg Capsule PO Not Given DAILY LAVONNE Furosemide 20 mg 08/28/21 09:00 09/01/21 09:14 Furosemide 20 Mg/2 Ml Vial IVP 20 mg Q48H LAVONNE Administration Piperacillin Sod/Tazobactam 100 mls @ 25 mls/hr 08/28/21 04:00 09/02/21 08:07 Sod 3.375 gm/ Sodium Chloride IV Infused Q8H LAVONNE Infusion Sodium Chloride 500 mls @ 20 mls/hr 08/28/21 11:09 09/01/21 19:55 Normal Saline 0.9% IV Infused Q24H PRN Infusion TKO RATE Potassium Chloride/Sodium Chloride 1,000 mls @ 100 mls/hr 09/01/21 08:00 09/02/21 03:57 Normal Saline 0.9% W/20 Meq Kcl IV 100 mls/hr .Q10H LAVONNE Administration Magnesium Oxide 400 mg 09/01/21 09:00 09/01/21 10:46 Magnesium Oxide 400 Mg Tablet PO 400 mg DAILYWM LAVONNE Administration Mineral Oil 1 applic 08/30/21 05:31 08/31/21 00:05 Min Oil/Dimethicon/Coconut Oil 92 Gm Tube TOP 1 applic PRN PRN Administration Skin Care Multi-Ingredient Ointment 1 applic 08/28/21 11:59 09/01/21 21:38 Zinc Oxide 20% Oint 30 Gm Tube TOP 1 applic PRN PRN Administration Skin Care Sodium Chloride 10 ml 08/27/21 17:44 09/01/21 09:15 Sodium Chloride Flush 0.9% 10 Ml Syringe IVP 10 ml PRN PRN Administration NEEDED PER PROVIDER ORDERS Sodium Chloride 10 ml 08/28/21 01:00 09/02/21 02:44 Sodium Chloride Flush 0.9% 10 Ml Syringe IVP 10 ml 0100,0900,1700 LAVONNE Administration - Lab Result Fish Bone Diagrams: 09/02/21 05:16 09/02/21 05:16 - Additional Planning My Orders: My Active Orders 09/02/21 09:00 Potassium Chloride/Water 10 mEq/100 mL q1h (Enter # of bags) Potassium Chlor 10 Meq/100 ml [Potassium Chloride] 10 meq in 100 ml IV Q1H Subjective - Subjective Patient Reports: Other (Patient was resting comfortably in bed. Though awake he does not provide any significant history. He denies any significant complaint.) Objective Vital Signs: Vital Signs - 24 hr 09/01/21 09/01/21 09/02/21 15:49 23:25 03:43 Temperature 37.1 C 36.7 C 36.8 C Heart Rate 56 L Heart Rate [ 64 55 L Brachial] Respiratory 21 20 16 Rate Blood Pressure 146/63 H Blood Pressure 154/54 H 144/63 H [Right Brachial artery] O2 Saturation 97 98 09/02/21 09/02/21 09/02/21 03:50 04:00 04:11 Temperature 36.9 C 36.9 C 36.9 C Heart Rate 63 56 L 58 L Heart Rate [ Brachial] Respiratory 16 16 16 Rate Blood Pressure 151/64 H 148/68 H 143/65 H Blood Pressure [Right Brachial artery] O2 Saturation Oxygen O2 Source Room air I&O (Last 24 Hrs): Intake and Output Totals x24h 08/31/21 09/01/21 09/02/21 23:59 23:59 23:59 Intake Total 2832.501 3114.283 1425 Balance 2832.501 3114.283 1425 General: Alert, Oriented x3, Mild distress HEENT: PERRLA, EOMI Neck: Supple, No JVD Neuro: Alert, Oriented Times 3 Cardiovascular: Other (bradycardia) Respiratory: Chest non-tender, No respiratory distress, Breath sounds nml Abdomen: Normal bowel sounds, Soft, Other (mild tenderness) Extremities: No clubbing, No cyanosis, No edema Skin: No rashes, No breakdown, No significant lesion - Results Results: Laboratory Results WBC 14.1 x10^3/uL (4.8-10.8) H 09/02/21 05:16 RBC 3.19 10^6/uL (4.70-6.10) L 09/02/21 05:16 Hgb 10.0 g/dL (14.0-18.0) L 09/02/21 05:16 Hct 29.8 % (42.0-52.0) L 09/02/21 05:16 MCV 93.4 fL (80.0-94.0) 09/02/21 05:16 MCH 31.3 pg (27.0-31.0) H 09/02/21 05:16 MCHC 33.6 g/dL (32.0-36.0) 09/02/21 05:16 RDW 14.3 % (12.0-15.0) 09/02/21 05:16 Plt Count 383 10^3/uL (130-450) 09/02/21 05:16 MPV 9.2 fL (7.4-11.4) 09/02/21 05:16 Neut # (Auto) 11.1 10^3/uL (1.5-6.6) H 09/02/21 05:16 Lymph # (Auto) 1.3 10^3/uL (1.5-3.5) L 09/02/21 05:16 [place] # (Auto) 1.0 10^3/uL (0.0-1.0) 09/02/21 05:16 Eos # (Auto) 0.2 10^3/uL (0.0-0.7) 09/02/21 05:16 Baso # (Auto) 0.1 10^3/uL (0.0-0.1) 09/02/21 05:16 Absolute Nucleated RBC 0.00 x10^3/uL 09/02/21 05:16 Total Counted 100 09/01/21 05:20 Band Neuts % (Manual) 1 % (0-10) 09/01/21 05:20 Abnorm Lymph % (Manual) 0 % 09/01/21 05:20 Nucleated RBC % 0.0 /100WBC 09/02/21 05:16 Neutrophils # (Manual) 9.1 10^3/uL (1.5-6.6) H 09/01/21 05:20 Lymphocytes # (Manual) 1.6 10^3/uL (1.5-3.5) 09/01/21 05:20 Monocytes # (Manual) 0.7 10^3/uL (0.0-1.0) 09/01/21 05:20 Eosinophils # (Manual) 0.2 10^3/uL (0-0.7) 09/01/21 05:20 Basophils # (Manual) 0.0 10^3/uL (0-0.1) 09/01/21 05:20 Differential Comment MANUAL DIFFERENTIAL 09/01/21 05:20 Manual Slide Review Indicated 08/27/21 15:25 WBC Morphology NORMAL APPEARANCE (NORMAL) 09/01/21 05:20 Platelet Estimate NORMAL (130-450,000) (NORMAL) 09/01/21 05:20 Platelet Morphology NORMAL APPEARANCE (NORMAL) 09/01/21 05:20 RBC Morph Micro Appear NORMAL APPEARANCE (NORMAL) 09/01/21 05:20 PT 20.4 secs (9.9-12.6) H 09/02/21 05:16 INR 1.8 (0.8-1.2) H 09/02/21 05:16 Sodium 136 mmol/L (135-145) 09/02/21 05:16 Potassium 3.1 mmol/L (3.5-5.0) L 09/02/21 05:16 Chloride 101 mmol/L (101-111) 09/02/21 05:16 Carbon Dioxide 25 mmol/L (21-32) 09/02/21 05:16 Anion Gap 10.0 (6-13) 09/02/21 05:16 BUN 9 mg/dL (6-20) 09/02/21 05:16 Creatinine 0.8 mg/dL (0.6-1.2) 09/02/21 05:16 Estimated GFR (MDRD) 93 (>89) 09/02/21 05:16 Glucose 87 mg/dL (70-100) 09/02/21 05:16 Lactic Acid 1.3 mmol/L (0.5-2.2) 08/27/21 15:25 Calcium 7.3 mg/dL (8.5-10.3) L 09/02/21 05:16 Magnesium 1.9 mg/dL (1.7-2.8) 08/29/21 04:43 Total Bilirubin 1.6 mg/dL (0.2-1.0) H 09/02/21 05:16 Direct Bilirubin 0.3 mg/dL (0.1-0.5) 09/02/21 05:16 AST 39 IU/L (10-42) 09/02/21 05:16 ALT 56 IU/L (10-60) 09/02/21 05:16 Alkaline Phosphatase 52 IU/L (42-121) 09/02/21 05:16 B-Natriuretic Peptide 335 pg/mL (5-100) H 08/27/21 15:25 Total Protein 5.8 g/dL (6.7-8.2) L 09/02/21 05:16 Albumin 2.1 g/dL (3.2-5.5) L 09/02/21 05:16 Globulin 3.7 g/dL (2.1-4.2) 09/02/21 05:16 Albumin/Globulin Ratio 0.8 (1.0-2.2) L 08/27/21 15:25 Urine Color DARK YELLOW 08/27/21 16:15 Urine Clarity CLEAR (CLEAR) 08/27/21 16:15 Urine pH 5.5 PH (5.0-7.5) 08/27/21 16:15 Ur Specific [place] >=1.030 (1.002-1.030) H 08/27/21 16:15 Urine Protein 100 mg/dL (NEGATIVE) H 08/27/21 16:15 Urine Glucose (UA) NEGATIVE mg/dL (NEGATIVE) 08/27/21 16:15 Urine Ketones NEGATIVE mg/dL (NEGATIVE) 08/27/21 16:15 Urine Occult Blood SMALL (NEGATIVE) H 08/27/21 16:15 Urine Nitrite NEGATIVE (NEGATIVE) 08/27/21 16:15 Urine Bilirubin NEGATIVE (NEGATIVE) 08/27/21 16:15 Urine Urobilinogen 0.2 (NORMAL) E.U./dL (NORMAL) 08/27/21 16:15 Ur Leukocyte Esterase NEGATIVE (NEGATIVE) 08/27/21 16:15 Urine RBC 0-5 /HPF (0-5) 08/27/21 16:15 Urine WBC 0-3 /HPF (0-3) 08/27/21 16:15 Ur Epithelial Cells FEW Transitional /HPF (<= Few) 08/27/21 16:15 Ur Squamous Epith Cells RARE Squamous (<= Few) 08/27/21 16:15 Urine Bacteria Rare /HPF (None Seen) 08/27/21 16:15 Urine Mucus Few Strands 08/27/21 16:15 Urine Culture Comments NOT INDICATED 08/27/21 16:15 Nasal Adenovirus (PCR) NOT DETECTED 08/27/21 15:17 Nasal B. parapertussis DNA (PCR) NOT DETECTED 08/27/21 15:17 Nasal Coronavir 229E PCR NOT DETECTED 08/27/21 15:17 Nasal Coronavir HKU1 PCR NOT DETECTED 08/27/21 15:17 Nasal Coronavir NL63 PCR NOT DETECTED 08/27/21 15:17 Nasal Coronavir OC43 PCR NOT DETECTED 08/27/21 15:17 Nasal Enterovir/Rhinovir PCR NOT DETECTED 08/27/21 15:17 Nasal Influenza B PCR NOT DETECTED 08/27/21 15:17 Nasal Influenza A PCR NOT DETECTED 08/27/21 15:17 Nasal Parainfluen 1 PCR NOT DETECTED 08/27/21 15:17 Nasal Parainfluen 2 PCR NOT DETECTED 08/27/21 15:17 Nasal Parainfluen 3 PCR NOT DETECTED 08/27/21 15:17 Nasal Parainfluen 4 PCR NOT DETECTED 08/27/21 15:17 Nasal RSV (PCR) NOT DETECTED 08/27/21 15:17 Nasal B.pertussis DNA PCR NOT DETECTED 08/27/21 15:17 Nasal C.pneumoniae (PCR) NOT DETECTED 08/27/21 15:17 Nura Human Metapneumo PCR NOT DETECTED 08/27/21 15:17 Nasal M.pneumoniae (PCR) NOT DETECTED 08/27/21 15:17 Nasal SARS-CoV-2 (PCR) NOT DETECTED 08/27/21 15:17 Hepatitis A IgM Ab NON-REACTIVE (NON-REACTIVE) 08/27/21 15:25 Hep Bs Antigen NON-REACTIVE (NON-REACTIVE) 08/27/21 15:25 Hep B Core IgM Ab NON-REACTIVE (NON-REACTIVE) 08/27/21 15:25 Hepatitis C Antibody NON-REACTIVE (NON-REACTIVE) 08/27/21 15:25 Hep C Ab Signal/Cutoff 0.00 (<1.00) 08/27/21 15:25 Blood Type Cancelled 09/01/21 14:42 Blood Type Recheck A POSITIVE 09/01/21 05:20 ABX Reporting Has patient been on IV antibiotics over the past 48 hours?: Yes
[2021-09-02] MEDS ORDERED: MIDAZOLAM 2 MG/2 ML VIAL ONE (09:58)
[2021-09-02] MEDS ORDERED: fentaNYL 100 MCG/2 ML VIAL ONE (09:58)
[2021-09-02] MEDS: POTASSIUM CHLOR 10 MEQ/100 ML 10 MEQ/100 ML BAG IV SCH ×4 (11:53→15:01)
[2021-09-02] MEDS ORDERED: BUFFERED LIDOCAINE 10 ML SYRINGE ONE (13:08)
[2021-09-02 13:35] LABS: CC,BF RBC 512000 /mm^3; CC,BF WBC 517312 /mm^3
[2021-09-02 13:36] LABS: BF CLARITY TURBID; BF COLOR PINK
[2021-09-02] MEDS: MAGNESIUM OXIDE 400 MG TABLET PO SCH (14:09)
[2021-09-02] MEDS: DOCUSATE SODIUM 250 MG CAPSULE PO SCH (14:09)
--- NOTE | 2021-09-02 14:48 | PROVIDER PROGRESS NOTE ---
Subjective - General Admit Date: 08/27/21 - Other Other Information/Narrative: Still sleepy and resting comfortably after image guided drainage of the right hepatic abscess. Drainage is frankly purulent.Very sleepy but denies any abdominal pain. Objective - Patient Data Reviewed Vital Signs: Yes Vital Signs: Vital Signs x48h Temp Pulse Pulse Resp BP BP Pulse Ox 09/02/21 11:21 36.1 C L 59 L 20 144/64 H 09/02/21 11:19 55 L 20 144/64 H 96 09/02/21 11:05 50 L 20 144/64 H 95 09/02/21 08:54 36.8 C 56 L 17 153/76 H Intake & Output: Intake and Output Totals x24h 08/31/21 09/01/21 09/02/21 23:59 23:59 23:59 Intake Total 2832.501 3114.283 2025 Balance 2832.501 3114.283 2024 - Lab Results Lab Results: 09/02/21 05:16 09/02/21 05:16 Other Lab Results: Lab Results x24hrs 09/02/21 09/02/21 09/02/21 Range/Units 10:50 05:16 05:16 WBC (4.8-10.8) x10^3/uL RBC (4.70-6.10) 10^6/uL Hgb (14.0-18.0) g/dL Hct (42.0-52.0) % MCV (80.0-94.0) fL MCH (27.0-31.0) pg MCHC (32.0-36.0) g/dL RDW (12.0-15.0) % Plt Count (130-450) 10^3/uL MPV (7.4-11.4) fL Neut # (Auto) (1.5-6.6) 10^3/uL Lymph # (Auto) (1.5-3.5) 10^3/uL [place] # (Auto) (0.0-1.0) 10^3/uL Eos # (Auto) (0.0-0.7) 10^3/uL Baso # (Auto) (0.0-0.1) 10^3/uL Absolute Nucleated RBC x10^3/uL Nucleated RBC % /100WBC PT 20.4 H (9.9-12.6) secs INR 1.8 H (0.8-1.2) Sodium 136 (135-145) mmol/L Potassium 3.1 L (3.5-5.0) mmol/L Chloride 101 (101-111) mmol/L Carbon Dioxide 25 (21-32) mmol/L Anion Gap 10.0 (6-13) BUN 9 (6-20) mg/dL Creatinine 0.8 (0.6-1.2) mg/dL Estimated GFR (MDRD) 93 (>89) Glucose 87 (70-100) mg/dL Calcium 7.3 L (8.5-10.3) mg/dL Total Bilirubin 1.6 H (0.2-1.0) mg/dL Direct Bilirubin 0.3 (0.1-0.5) mg/dL AST 39 (10-42) IU/L ALT 56 (10-60) IU/L Alkaline Phosphatase 52 (42-121) IU/L Total Protein 5.8 L (6.7-8.2) g/dL Albumin 2.1 L (3.2-5.5) g/dL Globulin 3.7 (2.1-4.2) g/dL Fluid Source Fluid Color PINK Fluid Clarity TURBID Fluid WBC 334161 /mm^3 Fluid RBC 233110 /mm^3 Blood Type Blood Type Recheck 09/02/21 09/01/21 09/01/21 Range/Units 05:16 14:42 05:20 WBC 14.1 H (4.8-10.8) x10^3/uL RBC 3.19 L (4.70-6.10) 10^6/uL Hgb 10.0 L (14.0-18.0) g/dL Hct 29.8 L (42.0-52.0) % MCV 93.4 (80.0-94.0) fL MCH 31.3 H (27.0-31.0) pg MCHC 33.6 (32.0-36.0) g/dL RDW 14.3 (12.0-15.0) % Plt Count 383 (130-450) 10^3/uL MPV 9.2 (7.4-11.4) fL Neut # (Auto) 11.1 H (1.5-6.6) 10^3/uL Lymph # (Auto) 1.3 L (1.5-3.5) 10^3/uL [place] # (Auto) 1.0 (0.0-1.0) 10^3/uL Eos # (Auto) 0.2 (0.0-0.7) 10^3/uL Baso # (Auto) 0.1 (0.0-0.1) 10^3/uL Absolute Nucleated RBC 0.00 x10^3/uL Nucleated RBC % 0.0 /100WBC PT (9.9-12.6) secs INR (0.8-1.2) Sodium (135-145) mmol/L Potassium (3.5-5.0) mmol/L Chloride (101-111) mmol/L Carbon Dioxide (21-32) mmol/L Anion Gap (6-13) BUN (6-20) mg/dL Creatinine (0.6-1.2) mg/dL Estimated GFR (MDRD) (>89) Glucose (70-100) mg/dL Calcium (8.5-10.3) mg/dL Total Bilirubin (0.2-1.0) mg/dL Direct Bilirubin (0.1-0.5) mg/dL AST (10-42) IU/L ALT (10-60) IU/L Alkaline Phosphatase (42-121) IU/L Total Protein (6.7-8.2) g/dL Albumin (3.2-5.5) g/dL Globulin (2.1-4.2) g/dL Fluid Source Fluid Color Fluid Clarity Fluid WBC /mm^3 Fluid RBC /mm^3 Blood Type Cancelled Blood Type Recheck A POSITIVE - Current Medications Current Medications: Current Medications Generic Name Dose Route Start Last Admin Trade Name Freq PRN Reason Stop Dose Admin Docusate Sodium 250 mg 08/28/21 09:00 09/02/21 14:09 Docusate Sodium 250 Mg Capsule PO Not Given DAILY LAVONNE Furosemide 20 mg 08/28/21 09:00 09/01/21 09:14 Furosemide 20 Mg/2 Ml Vial IVP 20 mg Q48H LAVONNE Administration Piperacillin Sod/Tazobactam 100 mls @ 25 mls/hr 08/28/21 04:00 09/02/21 11:58 Sod 3.375 gm/ Sodium Chloride IV 25 mls/hr Q8H LAVONNE Administration Sodium Chloride 500 mls @ 20 mls/hr 08/28/21 11:09 09/01/21 19:55 Normal Saline 0.9% IV Infused Q24H PRN Infusion TKO RATE Potassium Chloride/Sodium Chloride 1,000 mls @ 100 mls/hr 09/01/21 08:00 09/02/21 03:57 Normal Saline 0.9% W/20 Meq Kcl IV 100 mls/hr .Q10H LAVONNE Administration Magnesium Oxide 400 mg 09/01/21 09:00 09/02/21 14:09 Magnesium Oxide 400 Mg Tablet PO Not Given DAILYWM [facility] Mineral Oil 1 applic 08/30/21 05:31 08/31/21 00:05 Min Oil/Dimethicon/Coconut Oil 92 Gm Tube TOP 1 applic PRN PRN Administration Skin Care Multi-Ingredient Ointment 1 applic 08/28/21 11:59 09/01/21 21:38 Zinc Oxide 20% Oint 30 Gm Tube TOP 1 applic PRN PRN Administration Skin Care Sodium Chloride 10 ml 08/27/21 17:44 09/01/21 09:15 Sodium Chloride Flush 0.9% 10 Ml Syringe IVP 10 ml PRN PRN Administration NEEDED PER PROVIDER ORDERS Sodium Chloride 10 ml 08/28/21 01:00 09/02/21 09:04 Sodium Chloride Flush 0.9% 10 Ml Syringe IVP 10 ml 0100,0900,1700 LAVONNE Administration - Physical Exam Abdomen: positive: Nml bowel sounds, No distention Impression/Plan - Problem List Problem List: Hopefully we will begin to see a normalization of his white count over the next couple of days. No indication for surgical intervention at this time.
[2021-09-02] MEDS: methocarbamoL 500 MG TABLET PO PRN (16:09)
--- NOTE | 2021-09-02 16:18 | CT Report ---
PROCEDURE: RETROPERITONEAL ABSC DRAIN Sedation analgesia for approximately 45 minutes. Please see anesthesia report for details. INDICATIONS: drainage of liver abcess TECHNIQUE: The indications, alternatives, benefits, risks, and possible complications of the procedure were comm unicated to the patient. Informed written consent from the patient was obtained and placed in the art. Continuous EKG and hemodynamic monitoring was started by trained personnel. For radiation dose reduction, the following was used: automated exposure control, adjustment of mA and/or kV according to patient size. The patient was brought to the CT suite and speeder worker spiral CT imaging was performed with localization g rid. The appropriate site for percutaneous access to the drainage target was marked, was prepped and draped sterilely, and was infused with local anaesthesia. Under CT guidance, a chiba needle, guidew silvana, tract dilators, and pigtail catheter were used to access the abscess collection. The pigtail ca theter was secured to the patient, and the patient was sent for post-procedure monitoring. COMPARISON: 08/30/2021. FINDINGS: Biopsy site: Right inferior perihepatic space Needle: 18 gauge chiba needle for access. An 0.035" guide wire advanced under CT into the perihepati c abscess. Sequential tract dilatation with a 10F and 12F dilator followed by placement and confirmat ion of an 8Fpigtail drainage catheter. Specimen: Approximatey 50mL of purulent material was aspirated through the pigtail catheter and sent to the laboratory for analysis. Medications: 1% lidocaine for local anaesthesia. IV Fentanyl and Versed for conscious sedation for approximately 45 minutes (see nursing record). Complications: None. IMPRESSION: Successful CT-guided abscess drainage of right perihepatic abscess. Reviewed by: Eddie Alexander MD on 09/02/2021 4:17 PM PDT Approved by: Eddie Alexander MD on 09/02/2021 4:17 PM PDT Station ID: [id number]
[2021-09-03] MEDS: NS W/20 MEQ KCL 1,000 ML IV SCH ×3 (01:50→21:57)
[2021-09-03] MEDS: PIPERACILLIN/TAZOBACTAM 3.375 GM in SODIUM CHLORIDE 0.9% MINIBAG 100 ML IV SCH ×3 (03:58→20:43)
[2021-09-03 05:48] LABS: BASOPHILS # (AUTO) 0.1 10^3/uL (0.0-0.1); BASOPHILS % (AUTO) 0.5 %; EOSINOPHILS # (AUTO) 0.2 10^3/uL (0.0-0.7); EOSINOPHILS % (AUTO) 1.5 %; HCT - HEMATOCRIT 29.9 % (42.0-52.0); HGB - HEMOGLOBIN 9.7 g/dL (14.0-18.0); LYMPHOCYTES # (AUTO) 1.3 10^3/uL (1.5-3.5); LYMPHOCYTES % (AUTO) 9.4 %; MEAN CORPUSCULAR HGB CONC 32.4 g/dL (32.0-36.0); MEAN CORPUSCULAR VOLUME 95.5 fL (80.0-94.0); MEAN PLATELET VOLUME 9.3 fL (7.4-11.4); MONOCYTES # (AUTO) 0.9 10^3/uL (0.0-1.0); MONOCYTES % (AUTO) 6.5 %; NEUTROPHILS # (AUTO) 10.6 10^3/uL (1.5-6.6); PLT - PLATELET COUNT 416 10^3/uL (130-450); RED BLOOD COUNT 3.13 10^6/uL (4.70-6.10); RED CELL DISTRIBUTION WIDTH 14.5 % (12.0-15.0); WHITE BLOOD COUNT 13.4 x10^3/uL (4.8-10.8)
[2021-09-03 06:07] LABS: BILIRUBIN,DIRECT 0.2 mg/dL (0.1-0.5); BILIRUBIN,TOTAL 1.3 mg/dL (0.2-1.0); CALCIUM 7.2 mg/dL (8.5-10.3); CREATININE 0.8 mg/dL (0.6-1.2); POTASSIUM 3.5 mmol/L (3.5-5.0); TOTAL PROTEIN 5.5 g/dL (6.7-8.2)
--- NOTE | 2021-09-03 07:41 | PROVIDER PROGRESS NOTE ---
Assessment/Plan - Problem List (1) Liver abscess Assessment/Plan: Underwent CT-guided percutaneous drainage placement 09/02. Percutaneous tubes draining cloudy serosanguinous fluid. Gram stain shows gram-positive cocci. Patient is on Zosyn. Will continue. White blood cell count today was 13.4. This is a slight improvement from 14.7 Anticipating improvement in patient's white blood cell count. (2) Perforated abdominal viscus Assessment/Plan: On Zosyn IV. Percutaneous drainage tubes in place General Surgery following No surgical intervention at the moment per surgery (3) Bacteremia Assessment/Plan: Staph aureus grew. Patient is on Zosyn. We will continue. (4) Pulmonary edema Assessment/Plan: On Lasix 20 mg IV every 48 hours. (5) Pneumonia Assessment/Plan: Chest x-ray done at admission suggested pneumonia. He was initially on Rocephin and azithromycin. His antibiotics were subsequently switched to Zosyn. (6) Elevated liver enzymes Assessment/Plan: Improved/resolved. We will continue to monitor. (7) Acute metabolic encephalopathy Assessment/Plan: Improving. This could be secondary to patient's infection. Anticipating continued improvement. Will monitor. 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 This is thought to be secondary to alcohol abuse. Patient is not on any medication. No behavioral disturbances noted. - Current Meds Current Meds: Current Medications Generic Name Dose Route Start Last Admin Trade Name Freq PRN Reason Stop Dose Admin Docusate Sodium 250 mg 08/28/21 09:00 09/02/21 14:09 Docusate Sodium 250 Mg Capsule PO Not Given DAILY LAVONNE Furosemide 20 mg 08/28/21 09:00 09/01/21 09:14 Furosemide 20 Mg/2 Ml Vial IVP 20 mg Q48H LAVONNE Administration Piperacillin Sod/Tazobactam 100 mls @ 25 mls/hr 08/28/21 04:00 09/03/21 03:58 Sod 3.375 gm/ Sodium Chloride IV 25 mls/hr Q8H LAVONNE Administration Sodium Chloride 500 mls @ 20 mls/hr 08/28/21 11:09 09/01/21 19:55 Normal Saline 0.9% IV Infused Q24H PRN Infusion TKO RATE Potassium Chloride/Sodium Chloride 1,000 mls @ 100 mls/hr 09/01/21 08:00 01:50 Normal Saline 0.9% W/20 Meq Kcl IV 100 mls/hr .Q10H LAVONNE Administration Magnesium Oxide 400 mg 09/01/21 09:00 09/02/21 14:09 Magnesium Oxide 400 Mg Tablet PO Not Given DAILYWM LAVONNE Methocarbamol 500 mg 09/01/21 08:47 09/02/21 16:09 Methocarbamol 500 Mg Tablet PO 500 mg Q6HR PRN Administration Spasms Mineral Oil 1 applic 08/30/21 05:31 08/31/21 00:05 Min Oil/Dimethicon/Coconut Oil 92 Gm Tube TOP 1 applic PRN PRN Administration Skin Care Multi-Ingredient Ointment 1 applic 08/28/21 11:59 09/01/21 21:38 Zinc Oxide 20% Oint 30 Gm Tube TOP 1 applic PRN PRN Administration Skin Care Sodium Chloride 10 ml 08/27/21 17:44 09/01/21 09:15 Sodium Chloride Flush 0.9% 10 Ml Syringe IVP 10 ml PRN PRN Administration NEEDED PER PROVIDER ORDERS Sodium Chloride 10 ml 08/28/21 01:00 09/02/21 23:56 Sodium Chloride Flush 0.9% 10 Ml Syringe IVP 10 ml 0100,0900,1700 LAVONNE Administration - Lab Result Fish Bone Diagrams: 09/03/21 05:02 09/03/21 05:02 - Additional Planning My Orders: My Active Orders 09/02/21 Dinner Regular Diet [DIET] 09/03/21 09:00 Evaluate and Treat OT [OT] Routine Evaluate and Treat PT [PT] Routine Subjective - Subjective Patient Reports: Other (Resting comfortably in bed at time of exam. He denied any pain. He has been afebrile. Percutaneous drainage tube is in place draining cloudy serosanguineous fluid.) Objective Vital Signs: Vital Signs - 24 hr 09/02/21 09/02/21 09/02/21 08:54 11:05 11:19 Temperature 36.8 C Heart Rate 56 L Heart Rate [ 50 L 55 L Brachial] Respiratory 17 20 20 Rate Blood Pressure 153/76 H Blood Pressure 144/64 H 144/64 H [Right Brachial artery] O2 Saturation 95 96 09/02/21 09/02/21 09/02/21 11:21 11:40 12:10 Temperature 36.1 C L Heart Rate 59 L Heart Rate [ 55 L 53 L Brachial] Respiratory 20 Rate Blood Pressure 144/64 H Blood Pressure 158/75 H 160/75 H [Right Brachial artery] O2 Saturation 09/02/21 09/02/21 09/02/21 13:20 14:20 15:48 Temperature Heart Rate Heart Rate [ 49 L 50 L 62 Brachial] Respiratory 19 18 Rate Blood Pressure Blood Pressure 152/78 H 147/59 H 160/86 H [Right Brachial artery] O2 Saturation 96 97 09/02/21 23:23 Temperature 37.0 C Heart Rate Heart Rate [ 65 Brachial] Respiratory 20 Rate Blood Pressure Blood Pressure 137/61 H [Right Brachial artery] O2 Saturation 95 Oxygen O2 Source Room air I&O (Last 24 Hrs): Intake and Output Totals x24h 09/01/21 09/02/21 09/03/21 23:59 23:59 23:59 Intake Total 3114.283 3311.667 1100 Output Total 80 30 Balance 3114.283 3231.667 1070 General: Alert, No acute distress HEENT: Atraumatic, PERRLA, EOMI Neck: Supple, No JVD Neuro: Alert, Oriented Times 3 Cardiovascular: Regular rate Respiratory: Chest non-tender, No respiratory distress, Breath sounds nml Abdomen: Normal bowel sounds, Soft, No tenderness, No masses Extremities: No clubbing, No cyanosis, No edema Skin: No rashes, No breakdown, No significant lesion - Results Results: Laboratory Results WBC 13.4 x10^3/uL (4.8-10.8) H 09/03/21 05:02 RBC 3.13 10^6/uL (4.70-6.10) L 09/03/21 05:02 Hgb 9.7 g/dL (14.0-18.0) L 09/03/21 05:02 Hct 29.9 % (42.0-52.0) L 09/03/21 05:02 MCV 95.5 fL (80.0-94.0) H 09/03/21 05:02 MCH 31.0 pg (27.0-31.0) 09/03/21 05:02 MCHC 32.4 g/dL (32.0-36.0) 09/03/21 05:02 RDW 14.5 % (12.0-15.0) 09/03/21 05:02 Plt Count 416 10^3/uL (130-450) 09/03/21 05:02 MPV 9.3 fL (7.4-11.4) 09/03/21 05:02 Neut # (Auto) 10.6 10^3/uL (1.5-6.6) H 09/03/21 05:02 Lymph # (Auto) 1.3 10^3/uL (1.5-3.5) L 09/03/21 05:02 [place] # (Auto) 0.9 10^3/uL (0.0-1.0) 09/03/21 05:02 Eos # (Auto) 0.2 10^3/uL (0.0-0.7) 09/03/21 05:02 Baso # (Auto) 0.1 10^3/uL (0.0-0.1) 09/03/21 05:02 Absolute Nucleated RBC 0.00 x10^3/uL 09/03/21 05:02 Total Counted 100 09/01/21 05:20 Band Neuts % (Manual) 1 % (0-10) 09/01/21 05:20 Abnorm Lymph % (Manual) 0 % 09/01/21 05:20 Nucleated RBC % 0.0 /100WBC 09/03/21 05:02 Neutrophils # (Manual) 9.1 10^3/uL (1.5-6.6) H 09/01/21 05:20 Lymphocytes # (Manual) 1.6 10^3/uL (1.5-3.5) 09/01/21 05:20 Monocytes # (Manual) 0.7 10^3/uL (0.0-1.0) 09/01/21 05:20 Eosinophils # (Manual) 0.2 10^3/uL (0-0.7) 09/01/21 05:20 Basophils # (Manual) 0.0 10^3/uL (0-0.1) 09/01/21 05:20 Differential Comment MANUAL DIFFERENTIAL 09/01/21 05:20 Manual Slide Review Indicated 08/27/21 15:25 WBC Morphology NORMAL APPEARANCE (NORMAL) 09/01/21 05:20 Platelet Estimate NORMAL (130-450,000) (NORMAL) 09/01/21 05:20 Platelet Morphology NORMAL APPEARANCE (NORMAL) 09/01/21 05:20 RBC Morph Micro Appear NORMAL APPEARANCE (NORMAL) 09/01/21 05:20 PT 20.4 secs (9.9-12.6) H 09/02/21 05:16 INR 1.8 (0.8-1.2) H 09/02/21 05:16 Sodium 136 mmol/L (135-145) 09/03/21 05:02 Potassium 3.5 mmol/L (3.5-5.0) 09/03/21 05:02 Chloride 104 mmol/L (101-111) 09/03/21 05:02 Carbon Dioxide 22 mmol/L (21-32) 09/03/21 05:02 Anion Gap 10.0 (6-13) 09/03/21 05:02 BUN 8 mg/dL (6-20) 09/03/21 05:02 Creatinine 0.8 mg/dL (0.6-1.2) 09/03/21 05:02 Estimated GFR (MDRD) 93 (>89) 09/03/21 05:02 Glucose 111 mg/dL (70-100) H 09/03/21 05:02 Lactic Acid 1.3 mmol/L (0.5-2.2) 08/27/21 15:25 Calcium 7.2 mg/dL (8.5-10.3) L 09/03/21 05:02 Magnesium 1.9 mg/dL (1.7-2.8) 08/29/21 04:43 Total Bilirubin 1.3 mg/dL (0.2-1.0) H 09/03/21 05:02 Direct Bilirubin 0.2 mg/dL (0.1-0.5) 09/03/21 05:02 AST 35 IU/L (10-42) 09/03/21 05:02 ALT 46 IU/L (10-60) 09/03/21 05:02 Alkaline Phosphatase 50 IU/L (42-121) 09/03/21 05:02 B-Natriuretic Peptide 335 pg/mL (5-100) H 08/27/21 15:25 Total Protein 5.5 g/dL (6.7-8.2) L 09/03/21 05:02 Albumin 2.0 g/dL (3.2-5.5) L 09/03/21 05:02 Globulin 3.5 g/dL (2.1-4.2) 09/03/21 05:02 Albumin/Globulin Ratio 0.8 (1.0-2.2) L 08/27/21 15:25 Urine Color DARK YELLOW 08/27/21 16:15 Urine Clarity CLEAR (CLEAR) 08/27/21 16:15 Urine pH 5.5 PH (5.0-7.5) 08/27/21 16:15 Ur Specific [place] >=1.030 (1.002-1.030) H 08/27/21 16:15 Urine Protein 100 mg/dL (NEGATIVE) H 08/27/21 16:15 Urine Glucose (UA) NEGATIVE mg/dL (NEGATIVE) 08/27/21 16:15 Urine Ketones NEGATIVE mg/dL (NEGATIVE) 08/27/21 16:15 Urine Occult Blood SMALL (NEGATIVE) H 08/27/21 16:15 Urine Nitrite NEGATIVE (NEGATIVE) 08/27/21 16:15 Urine Bilirubin NEGATIVE (NEGATIVE) 08/27/21 16:15 Urine Urobilinogen 0.2 (NORMAL) E.U./dL (NORMAL) 08/27/21 16:15 Ur Leukocyte Esterase NEGATIVE (NEGATIVE) 08/27/21 16:15 Urine RBC 0-5 /HPF (0-5) 08/27/21 16:15 Urine WBC 0-3 /HPF (0-3) 08/27/21 16:15 Ur Epithelial Cells FEW Transitional /HPF (<= Few) 08/27/21 16:15 Ur Squamous Epith Cells RARE Squamous (<= Few) 08/27/21 16:15 Urine Bacteria Rare /HPF (None Seen) 08/27/21 16:15 Urine Mucus Few Strands 08/27/21 16:15 Urine Culture Comments NOT INDICATED 08/27/21 16:15 Fluid Source 09/02/21 10:50 Fluid Color PINK 09/02/21 10:50 Fluid Clarity TURBID 09/02/21 10:50 Fluid WBC 292859 /mm^3 09/02/21 10:50 Fluid RBC 405538 /mm^3 09/02/21 10:50 Fluid Neutrophils % 90.0 % 09/02/21 10:50 Fluid Lymphocytes % 9.0 % 09/02/21 10:50 Fluid Macrophages % 1.0 % 09/02/21 10:50 Fld Mesothelial Cell % Not Reportable 09/02/21 10:50 Nasal Adenovirus (PCR) NOT DETECTED 08/27/21 15:17 Nasal B. parapertussis DNA (PCR) NOT DETECTED 08/27/21 15:17 Nasal Coronavir 229E PCR NOT DETECTED 08/27/21 15:17 Nasal Coronavir HKU1 PCR NOT DETECTED 08/27/21 15:17 Nasal Coronavir NL63 PCR NOT DETECTED 08/27/21 15:17 Nasal Coronavir OC43 PCR NOT DETECTED 08/27/21 15:17 Nasal Enterovir/Rhinovir PCR NOT DETECTED 08/27/21 15:17 Nasal Influenza B PCR NOT DETECTED 08/27/21 15:17 Nasal Influenza A PCR NOT DETECTED 08/27/21 15:17 Nasal Parainfluen 1 PCR NOT DETECTED 08/27/21 15:17 Nasal Parainfluen 2 PCR NOT DETECTED 08/27/21 15:17 Nasal Parainfluen 3 PCR NOT DETECTED 08/27/21 15:17 Nasal Parainfluen 4 PCR NOT DETECTED 08/27/21 15:17 Nasal RSV (PCR) NOT DETECTED 08/27/21 15:17 Nasal B.pertussis DNA PCR NOT DETECTED 08/27/21 15:17 Nasal C.pneumoniae (PCR) NOT DETECTED 08/27/21 15:17 Nura Human Metapneumo PCR NOT DETECTED 08/27/21 15:17 Nasal M.pneumoniae (PCR) NOT DETECTED 08/27/21 15:17 Nasal SARS-CoV-2 (PCR) NOT DETECTED 08/27/21 15:17 Hepatitis A IgM Ab NON-REACTIVE (NON-REACTIVE) 08/27/21 15:25 Hep Bs Antigen NON-REACTIVE (NON-REACTIVE) 08/27/21 15:25 Hep B Core IgM Ab NON-REACTIVE (NON-REACTIVE) 08/27/21 15:25 Hepatitis C Antibody NON-REACTIVE (NON-REACTIVE) 08/27/21 15:25 Hep C Ab Signal/Cutoff 0.00 (<1.00) 08/27/21 15:25 Blood Type Cancelled 09/01/21 14:42 Blood Type Recheck A POSITIVE 09/01/21 05:20 ABX Reporting Has patient been on IV antibiotics over the past 48 hours?: Yes
[2021-09-03] MEDS: MAGNESIUM OXIDE 400 MG TABLET PO SCH (09:30)
[2021-09-03] MEDS: DOCUSATE SODIUM 250 MG CAPSULE PO SCH (09:30)
[2021-09-03] MEDS: FUROSEMIDE 20 MG/2 ML VIAL IVP SCH (09:30)
[2021-09-03] MEDS: SODIUM CHLORIDE FLUSH 0.9% 10 ML SYRINGE IVP SCH ×3 (09:31→23:52)
[2021-09-03] MEDS: methocarbamoL 500 MG TABLET PO PRN (18:58)
[2021-09-04] MEDS: PIPERACILLIN/TAZOBACTAM 3.375 GM in SODIUM CHLORIDE 0.9% MINIBAG 100 ML IV SCH ×3 (03:18→20:44)
--- NOTE | 2021-09-04 07:39 | PROVIDER PROGRESS NOTE ---
Assessment/Plan - Problem List (1) Liver abscess Assessment/Plan: Patient's white blood cell count is 14.4 today. This is an increase from 13.4. There is little drainage from percutaneous tubes. Drainage is serosanguineous and less cloudy. Cultures grew E. coli. Patient is on Zosyn. Will continue. (2) Perforated abdominal viscus Assessment/Plan: On Zosyn IV. Percutaneous drainage tubes in place General Surgery following No surgical intervention at the moment per surgery (3) Bacteremia Assessment/Plan: This was coagulase-negative Staphylococcus. It is suspected to be a contaminant. (4) Pulmonary edema Assessment/Plan: On Lasix 20 mg IV every 48 hours. (5) Pneumonia Assessment/Plan: Chest x-ray done at admission suggested pneumonia. He was initially on Rocephin and azithromycin. His antibiotics were subsequently switched to Zosyn. (6) Elevated liver enzymes Assessment/Plan: Improved/resolved. We will continue to monitor. (7) Acute metabolic encephalopathy Assessment/Plan: Improving. This could be secondary to patient's infection. Anticipating continued improvement. Will monitor. (8) Dementia Qualifiers: Dementia type: unspecified type Dementia behavioral disturbance: without behavioral disturbance Qualified Code(s): F03.90 - Unspecified dementia without behavioral disturbance Assessment/Plan: This is reported in patient's medical record. 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 This is thought to be secondary to alcohol abuse. Patient is not on any medication. No behavioral disturbances noted. - Current Meds Current Meds: Current Medications Generic Name Dose Route Start Last Admin Trade Name Freq PRN Reason Stop Dose Admin Furosemide 20 mg 08/28/21 09:00 09/03/21 09:30 Furosemide 20 Mg/2 Ml Vial IVP 20 mg Q48H LAVONNE Administration Piperacillin Sod/Tazobactam 100 mls @ 25 mls/hr 08/28/21 04:00 09/04/21 04:17 Sod 3.375 gm/ Sodium Chloride IV Infused Q8H LAVONNE Infusion Sodium Chloride 500 mls @ 20 mls/hr 08/28/21 11:09 09/01/21 19:55 Normal Saline 0.9% IV Infused Q24H PRN Infusion TKO RATE Potassium Chloride/Sodium Chloride 1,000 mls @ 100 mls/hr 09/01/21 08:00 09/03/21 21:57 Normal Saline 0.9% W/20 Meq Kcl IV 100 mls/hr .Q10H LAVONNE Administration Magnesium Oxide 400 mg 09/01/21 09:00 09/03/21 09:30 Magnesium Oxide 400 Mg Tablet PO 400 mg DAILYWM LAVONNE Administration Methocarbamol 500 mg 09/01/21 08:47 09/03/21 18:58 Methocarbamol 500 Mg Tablet PO 500 mg Q6HR PRN Administration Spasms Mineral Oil 1 applic 08/30/21 05:31 08/31/21 00:05 Min Oil/Dimethicon/Coconut Oil 92 Gm Tube TOP 1 applic PRN PRN Administration Skin Care Multi-Ingredient Ointment 1 applic 08/28/21 11:59 09/01/21 21:38 Zinc Oxide 20% Oint 30 Gm Tube TOP 1 applic PRN PRN Administration Skin Care Sodium Chloride 10 ml 08/27/21 17:44 09/01/21 09:15 Sodium Chloride Flush 0.9% 10 Ml Syringe IVP 10 ml PRN PRN Administration NEEDED PER PROVIDER ORDERS Sodium Chloride 10 ml 08/28/21 01:00 09/03/21 23:52 Sodium Chloride Flush 0.9% 10 Ml Syringe IVP Not Given 0100,0900,1700 LAVONNE - Lab Result Fish Bone Diagrams: 09/04/21 11:27 09/04/21 11:27 - Additional Planning My Orders: My Active Orders 09/03/21 09:00 Evaluate and Treat OT [OT] Routine Evaluate and Treat PT [PT] Routine Subjective - Subjective Patient Reports: Other (Resting comfortably in bed. He denies any complaints. There is decreased drainage from his percutaneous tubes.) Objective Vital Signs: Vital Signs - 24 hr 09/03/21 09/03/21 09/03/21 08:00 10:45 16:00 Temperature 36.9 C 37.0 C Heart Rate [ 60 Brachial] Heart Rate [ 60 Radial] Heart Rate [ 99 Sitting] Heart Rate [ 65 Supine] Respiratory 18 18 Rate Blood Pressure 153/72 H 153/81 H [Right Brachial artery] Blood Pressure 148/91 H [Sitting] Blood Pressure 150/78 H [Supine] O2 Saturation 94 95 09/03/21 23:52 Temperature 36.9 C Heart Rate [ 55 L Brachial] Heart Rate [ Radial] Heart Rate [ Sitting] Heart Rate [ Supine] Respiratory 18 Rate Blood Pressure 163/74 H [Right Brachial artery] Blood Pressure [Sitting] Blood Pressure [Supine] O2 Saturation 100 Oxygen O2 Source Room air I&O (Last 24 Hrs): Intake and Output Totals x24h 09/02/21 09/03/21 09/04/21 23:59 23:59 23:59 Intake Total 3311.667 5201.667 200 Output Total 80 55 20 Balance 3231.667 5146.667 180 General: Alert, No acute distress HEENT: Atraumatic, PERRLA, EOMI Neck: Supple, No JVD Neuro: Alert Cardiovascular: Regular rate Respiratory: Chest non-tender, No respiratory distress, Breath sounds nml Abdomen: Normal bowel sounds, Soft, No tenderness Extremities: No clubbing, No cyanosis, No edema, No tenderness/swelling Skin: No rashes, No breakdown, No significant lesion - Results Results: Laboratory Results WBC 13.4 x10^3/uL (4.8-10.8) H 09/03/21 05:02 RBC 3.13 10^6/uL (4.70-6.10) L 09/03/21 05:02 Hgb 9.7 g/dL (14.0-18.0) L 09/03/21 05:02 Hct 29.9 % (42.0-52.0) L 09/03/21 05:02 MCV 95.5 fL (80.0-94.0) H 09/03/21 05:02 MCH 31.0 pg (27.0-31.0) 09/03/21 05:02 MCHC 32.4 g/dL (32.0-36.0) 09/03/21 05:02 RDW 14.5 % (12.0-15.0) 09/03/21 05:02 Plt Count 416 10^3/uL (130-450) 09/03/21 05:02 MPV 9.3 fL (7.4-11.4) 09/03/21 05:02 Neut # (Auto) 10.6 10^3/uL (1.5-6.6) H 09/03/21 05:02 Lymph # (Auto) 1.3 10^3/uL (1.5-3.5) L 09/03/21 05:02 [place] # (Auto) 0.9 10^3/uL (0.0-1.0) 09/03/21 05:02 Eos # (Auto) 0.2 10^3/uL (0.0-0.7) 09/03/21 05:02 Baso # (Auto) 0.1 10^3/uL (0.0-0.1) 09/03/21 05:02 Absolute Nucleated RBC 0.00 x10^3/uL 09/03/21 05:02 Total Counted 100 09/01/21 05:20 Band Neuts % (Manual) 1 % (0-10) 09/01/21 05:20 Abnorm Lymph % (Manual) 0 % 09/01/21 05:20 Nucleated RBC % 0.0 /100WBC 09/03/21 05:02 Neutrophils # (Manual) 9.1 10^3/uL (1.5-6.6) H 09/01/21 05:20 Lymphocytes # (Manual) 1.6 10^3/uL (1.5-3.5) 09/01/21 05:20 Monocytes # (Manual) 0.7 10^3/uL (0.0-1.0) 09/01/21 05:20 Eosinophils # (Manual) 0.2 10^3/uL (0-0.7) 09/01/21 05:20 Basophils # (Manual) 0.0 10^3/uL (0-0.1) 09/01/21 05:20 Differential Comment MANUAL DIFFERENTIAL 09/01/21 05:20 Manual Slide Review Indicated 08/27/21 15:25 WBC Morphology NORMAL APPEARANCE (NORMAL) 09/01/21 05:20 Platelet Estimate NORMAL (130-450,000) (NORMAL) 09/01/21 05:20 Platelet Morphology NORMAL APPEARANCE (NORMAL) 09/01/21 05:20 RBC Morph Micro Appear NORMAL APPEARANCE (NORMAL) 09/01/21 05:20 PT 20.4 secs (9.9-12.6) H 09/02/21 05:16 INR 1.8 (0.8-1.2) H 09/02/21 05:16 Sodium 136 mmol/L (135-145) 09/03/21 05:02 Potassium 3.5 mmol/L (3.5-5.0) 09/03/21 05:02 Chloride 104 mmol/L (101-111) 09/03/21 05:02 Carbon Dioxide 22 mmol/L (21-32) 09/03/21 05:02 Anion Gap 10.0 (6-13) 09/03/21 05:02 BUN 8 mg/dL (6-20) 09/03/21 05:02 Creatinine 0.8 mg/dL (0.6-1.2) 09/03/21 05:02 Estimated GFR (MDRD) 93 (>89) 09/03/21 05:02 Glucose 111 mg/dL (70-100) H 09/03/21 05:02 Lactic Acid 1.3 mmol/L (0.5-2.2) 08/27/21 15:25 Calcium 7.2 mg/dL (8.5-10.3) L 09/03/21 05:02 Magnesium 1.9 mg/dL (1.7-2.8) 08/29/21 04:43 Total Bilirubin 1.3 mg/dL (0.2-1.0) H 09/03/21 05:02 Direct Bilirubin 0.2 mg/dL (0.1-0.5) 09/03/21 05:02 AST 35 IU/L (10-42) 09/03/21 05:02 ALT 46 IU/L (10-60) 09/03/21 05:02 Alkaline Phosphatase 50 IU/L (42-121) 09/03/21 05:02 B-Natriuretic Peptide 335 pg/mL (5-100) H 08/27/21 15:25 Total Protein 5.5 g/dL (6.7-8.2) L 09/03/21 05:02 Albumin 2.0 g/dL (3.2-5.5) L 09/03/21 05:02 Globulin 3.5 g/dL (2.1-4.2) 09/03/21 05:02 Albumin/Globulin Ratio 0.8 (1.0-2.2) L 08/27/21 15:25 Urine Color DARK YELLOW 08/27/21 16:15 Urine Clarity CLEAR (CLEAR) 08/27/21 16:15 Urine pH 5.5 PH (5.0-7.5) 08/27/21 16:15 Ur Specific [place] >=1.030 (1.002-1.030) H 08/27/21 16:15 Urine Protein 100 mg/dL (NEGATIVE) H 08/27/21 16:15 Urine Glucose (UA) NEGATIVE mg/dL (NEGATIVE) 08/27/21 16:15 Urine Ketones NEGATIVE mg/dL (NEGATIVE) 08/27/21 16:15 Urine Occult Blood SMALL (NEGATIVE) H 08/27/21 16:15 Urine Nitrite NEGATIVE (NEGATIVE) 08/27/21 16:15 Urine Bilirubin NEGATIVE (NEGATIVE) 08/27/21 16:15 Urine Urobilinogen 0.2 (NORMAL) E.U./dL (NORMAL) 08/27/21 16:15 Ur Leukocyte Esterase NEGATIVE (NEGATIVE) 08/27/21 16:15 Urine RBC 0-5 /HPF (0-5) 08/27/21 16:15 Urine WBC 0-3 /HPF (0-3) 08/27/21 16:15 Ur Epithelial Cells FEW Transitional /HPF (<= Few) 08/27/21 16:15 Ur Squamous Epith Cells RARE Squamous (<= Few) 08/27/21 16:15 Urine Bacteria Rare /HPF (None Seen) 08/27/21 16:15 Urine Mucus Few Strands 08/27/21 16:15 Urine Culture Comments NOT INDICATED 08/27/21 16:15 Fluid Source 09/02/21 10:50 Fluid Color PINK 09/02/21 10:50 Fluid Clarity TURBID 09/02/21 10:50 Fluid WBC 543898 /mm^3 09/02/21 10:50 Fluid RBC 814042 /mm^3 09/02/21 10:50 Fluid Neutrophils % 90.0 % 09/02/21 10:50 Fluid Lymphocytes % 9.0 % 09/02/21 10:50 Fluid Macrophages % 1.0 % 09/02/21 10:50 Fld Mesothelial Cell % Not Reportable 09/02/21 10:50 Nasal Adenovirus (PCR) NOT DETECTED 08/27/21 15:17 Nasal B. parapertussis DNA (PCR) NOT DETECTED 08/27/21 15:17 Nasal Coronavir 229E PCR NOT DETECTED 08/27/21 15:17 Nasal Coronavir HKU1 PCR NOT DETECTED 08/27/21 15:17 Nasal Coronavir NL63 PCR NOT DETECTED 08/27/21 15:17 Nasal Coronavir OC43 PCR NOT DETECTED 08/27/21 15:17 Nasal Enterovir/Rhinovir PCR NOT DETECTED 08/27/21 15:17 Nasal Influenza B PCR NOT DETECTED 08/27/21 15:17 Nasal Influenza A PCR NOT DETECTED 08/27/21 15:17 Nasal Parainfluen 1 PCR NOT DETECTED 08/27/21 15:17 Nasal Parainfluen 2 PCR NOT DETECTED 08/27/21 15:17 Nasal Parainfluen 3 PCR NOT DETECTED 08/27/21 15:17 Nasal Parainfluen 4 PCR NOT DETECTED 08/27/21 15:17 Nasal RSV (PCR) NOT DETECTED 08/27/21 15:17 Nasal B.pertussis DNA PCR NOT DETECTED 08/27/21 15:17 Nasal C.pneumoniae (PCR) NOT DETECTED 08/27/21 15:17 Nura Human Metapneumo PCR NOT DETECTED 08/27/21 15:17 Nasal M.pneumoniae (PCR) NOT DETECTED 08/27/21 15:17 Nasal SARS-CoV-2 (PCR) NOT DETECTED 08/27/21 15:17 Hepatitis A IgM Ab NON-REACTIVE (NON-REACTIVE) 08/27/21 15:25 Hep Bs Antigen NON-REACTIVE (NON-REACTIVE) 08/27/21 15:25 Hep B Core IgM Ab NON-REACTIVE (NON-REACTIVE) 08/27/21 15:25 Hepatitis C Antibody NON-REACTIVE (NON-REACTIVE) 08/27/21 15:25 Hep C Ab Signal/Cutoff 0.00 (<1.00) 08/27/21 15:25 Blood Type Cancelled 09/01/21 14:42 Blood Type Recheck A POSITIVE 09/01/21 05:20 ABX Reporting Has patient been on IV antibiotics over the past 48 hours?: Yes
[2021-09-04] MEDS: NS W/20 MEQ KCL 1,000 ML IV SCH ×2 (08:48→18:49)
[2021-09-04] MEDS: MAGNESIUM OXIDE 400 MG TABLET PO SCH (08:48)
[2021-09-04] MEDS: SODIUM CHLORIDE FLUSH 0.9% 10 ML SYRINGE IVP SCH ×2 (08:50→18:23)
[2021-09-04 11:35] LABS: BASOPHILS # (AUTO) 0.1 10^3/uL (0.0-0.1); BASOPHILS % (AUTO) 0.6 %; EOSINOPHILS # (AUTO) 0.2 10^3/uL (0.0-0.7); EOSINOPHILS % (AUTO) 1.3 %; HGB - HEMOGLOBIN 10.6 g/dL (14.0-18.0); LYMPHOCYTES # (AUTO) 1.3 10^3/uL (1.5-3.5); MEAN CORPUSCULAR HEMOGLOBIN 31.2 pg (27.0-31.0); MEAN CORPUSCULAR HGB CONC 33.1 g/dL (32.0-36.0); MEAN CORPUSCULAR VOLUME 94.1 fL (80.0-94.0); MEAN PLATELET VOLUME 9.1 fL (7.4-11.4); MONOCYTES # (AUTO) 0.9 10^3/uL (0.0-1.0); MONOCYTES % (AUTO) 6.3 %; NEUTROPHILS # (AUTO) 11.6 10^3/uL (1.5-6.6); NEUTROPHILS % (AUTO) 80.4 %; PLT - PLATELET COUNT 445 10^3/uL (130-450); WHITE BLOOD COUNT 14.4 x10^3/uL (4.8-10.8)
[2021-09-04 12:12] LABS: ALBUMIN 2.3 g/dL (3.2-5.5); BILIRUBIN,DIRECT 0.2 mg/dL (0.1-0.5); BILIRUBIN,TOTAL 0.9 mg/dL (0.2-1.0); CALCIUM 7.3 mg/dL (8.5-10.3); CREATININE 0.7 mg/dL (0.6-1.2)
[2021-09-05] MEDS: PIPERACILLIN/TAZOBACTAM 3.375 GM in SODIUM CHLORIDE 0.9% MINIBAG 100 ML IV SCH (03:57)
[2021-09-05] MEDS: SODIUM CHLORIDE FLUSH 0.9% 10 ML SYRINGE IVP SCH ×3 (03:57→21:55)
[2021-09-05] MEDS: NS W/20 MEQ KCL 1,000 ML IV SCH ×2 (03:57→12:13)
[2021-09-05 04:43] LABS: BASOPHILS # (AUTO) 0.1 10^3/uL (0.0-0.1); BASOPHILS % (AUTO) 0.5 %; EOSINOPHILS # (AUTO) 0.2 10^3/uL (0.0-0.7); EOSINOPHILS % (AUTO) 1.6 %; HCT - HEMATOCRIT 31.4 % (42.0-52.0); HGB - HEMOGLOBIN 10.3 g/dL (14.0-18.0); LYMPHOCYTES # (AUTO) 1.6 10^3/uL (1.5-3.5); LYMPHOCYTES % (AUTO) 11.1 %; MEAN CORPUSCULAR HGB CONC 32.8 g/dL (32.0-36.0); MEAN CORPUSCULAR VOLUME 94.6 fL (80.0-94.0); MEAN PLATELET VOLUME 8.8 fL (7.4-11.4); MONOCYTES # (AUTO) 0.9 10^3/uL (0.0-1.0); MONOCYTES % (AUTO) 6.2 %; NEUTROPHILS # (AUTO) 11.2 10^3/uL (1.5-6.6); NEUTROPHILS % (AUTO) 78.3 %; PLT - PLATELET COUNT 442 10^3/uL (130-450); RED BLOOD COUNT 3.32 10^6/uL (4.70-6.10); WHITE BLOOD COUNT 14.3 x10^3/uL (4.8-10.8)
[2021-09-05 04:52] LABS: CALCIUM 7.4 mg/dL (8.5-10.3); CREATININE 0.8 mg/dL (0.6-1.2); POTASSIUM 3.6 mmol/L (3.5-5.0)
--- NOTE | 2021-09-05 07:43 | PROVIDER PROGRESS NOTE ---
Assessment/Plan - Problem List (1) Liver abscess Assessment/Plan: Patient's white blood cell count remained at 14.4 today. Drainage from percutaneous tube is serosanguineous and cloudy. Cultures grew E. coli. As a result of no change in patient's white blood cell count repeat CT of the abdomen/pelvis with contrast was done on 09/05/2021. It showed interval decreased size of the patient's right upper quadrant abscesses. There was mild wall thickening of the urinary bladder, likely secondary to an enlarged prostate. There was mild wall thickening of the rectosigmoid colon with presacral fluid which is nonspecific but may reflect infectious or inflammatory process. There was increased bilateral pleural effusions. Patient's Zosyn was discontinued on 09/05/21 and he was started on Cipro 400 mg IV twice daily and Flagyl 500 mg IV 3 times daily for a total of 5 days. Anticipating discharge to a senior care facility on 09/08/2021 (2) Perforated abdominal viscus Assessment/Plan: Repeat CT of the abdomen/pelvis with contrast was done on 09/05/2021. It showed interval decreased size of the patient's right upper quadrant abscesses. There was mild wall thickening of the urinary bladder, likely secondary to an enlarged prostate. There was mild wall thickening of the rectosigmoid colon with presacral fluid which is nonspecific but may reflect infectious or inflammatory process. There was increased bilateral pleural effusions. There was no account of perforation. General surgery also following. No surgical intervention warranted at this time. (3) Bacteremia Assessment/Plan: This was coagulase-negative Staphylococcus. It is suspected to be a contaminant. (4) Pulmonary edema Assessment/Plan: On Lasix 20 mg IV every 48 hours. (5) Pneumonia Assessment/Plan: Chest x-ray done at admission suggested pneumonia. He was initially on Rocephin and azithromycin. His antibiotics were subsequently switched to Zosyn. Patient is currently on Cipro and Flagyl (6) Elevated liver enzymes Assessment/Plan: Improved/resolved. We will continue to monitor. (7) Acute metabolic encephalopathy Assessment/Plan: He is at baseline. He has a flat affect. He also has history of dementia. (8) Dementia Qualifiers: Dementia type: unspecified type Dementia behavioral disturbance: without b ehavioral disturbance Qualified Code(s): F03.90 - Unspecified dementia without behavioral disturbance Assessment/Plan: This is reported in patient's medical record. 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 This is thought to be secondary to alcohol abuse. Patient is not on any medication. No behavioral disturbances noted. (9) Diarrhea Assessment/Plan: Secondary to antibiotic use. C. difficile test pending. Patient is currently on Cipro and Flagyl. - Current Meds Current Meds: Current Medications Generic Name Dose Route Start Last Admin Trade Name Freq PRN Reason Stop Dose Admin Furosemide 20 mg 08/28/21 09:00 09/03/21 09:30 Furosemide 20 Mg/2 Ml Vial IVP 20 mg Q48H LAVONNE Administration Piperacillin Sod/Tazobactam 100 mls @ 25 mls/hr 08/28/21 04:00 09/05/21 03:57 Sod 3.375 gm/ Sodium Chloride IV 25 mls/hr Q8H LAVONNE Administration Sodium Chloride 500 mls @ 20 mls/hr 08/28/21 11:09 09/01/21 19:55 Normal Saline 0.9% IV Infused Q24H PRN Infusion TKO RATE Potassium Chloride/Sodium Chloride 1,000 mls @ 100 mls/hr 09/01/21 08:00 09/05/21 03:57 Normal Saline 0.9% W/20 Meq Kcl IV 100 mls/hr .Q10H LAVONNE Administration Magnesium Oxide 400 mg 09/01/21 09:00 09/04/21 08:48 Magnesium Oxide 400 Mg Tablet PO 400 mg DAILYWM LAVONNE Administration Methocarbamol 500 mg 09/01/21 08:47 09/03/21 18:58 Methocarbamol 500 Mg Tablet PO 500 mg Q6HR PRN Administration Spasms Mineral Oil 1 applic 08/30/21 05:31 08/31/21 00:05 Min Oil/Dimethicon/Coconut Oil 92 Gm Tube TOP 1 applic PRN PRN Administration Skin Care Multi-Ingredient Ointment 1 applic 08/28/21 11:59 09/01/21 21:38 Zinc Oxide 20% Oint 30 Gm Tube TOP 1 applic PRN PRN Administration Skin Care Sodium Chloride 10 ml 08/27/21 17:44 09/01/21 09:15 Sodium Chloride Flush 0.9% 10 Ml Syringe IVP 10 ml PRN PRN Administration NEEDED PER PROVIDER ORDERS Sodium Chloride 10 ml 08/28/21 01:00 09/05/21 03:57 Sodium Chloride Flush 0.9% 10 Ml Syringe IVP 10 ml 0100,0900,1700 [facility] Administration - Lab Result Fish Bone Diagrams: 09/05/21 04:37 09/05/21 04:37 Subjective - Subjective Patient Reports: Other (Patient was seated comfortably in bedside chair at time of exam eating breakfast. He has a very flat affect is any complaints. White blood cell count remained stable at 14.4 for the third day. He is afebrile. He has been having frequent diarrhea.) Objective Vital Signs: Vital Signs - 24 hr 09/04/21 09/04/21 09/05/21 07:50 15:30 00:00 Temperature 36.7 C 36.8 C 36.7 C Heart Rate [ 61 70 65 Brachial] Respiratory 18 20 18 Rate Blood Pressure 167/72 H 129/71 155/76 H [Right Brachial artery] O2 Saturation 98 98 98 Oxygen O2 Source Room air I&O (Last 24 Hrs): Intake and Output Totals x24h 09/03/21 09/04/21 09/05/21 23:59 23:59 23:59 Intake Total 5201.667 2485 1013.333 Output Total 55 20 Balance 5146.667 2465 1013.333 General: Alert, No acute distress HEENT: PERRLA, EOMI Neck: Supple, No JVD Neuro: Alert Cardiovascular: Regular rate, No murmurs Respiratory: Chest non-tender, No respiratory distress, Breath sounds nml Abdomen: Normal bowel sounds, Soft, No tenderness, No masses Extremities: No clubbing, No edema, No tenderness/swelling Skin: No rashes, No breakdown, No significant lesion - Results Results: Laboratory Results WBC 14.3 x10^3/uL (4.8-10.8) H 09/05/21 04:37 RBC 3.32 10^6/uL (4.70-6.10) L 09/05/21 04:37 Hgb 10.3 g/dL (14.0-18.0) L 09/05/21 04:37 Hct 31.4 % (42.0-52.0) L 09/05/21 04:37 MCV 94.6 fL (80.0-94.0) H 09/05/21 04:37 MCH 31.0 pg (27.0-31.0) 09/05/21 04:37 MCHC 32.8 g/dL (32.0-36.0) 09/05/21 04:37 RDW 14.0 % (12.0-15.0) 09/05/21 04:37 Plt Count 442 10^3/uL (130-450) 09/05/21 04:37 MPV 8.8 fL (7.4-11.4) 09/05/21 04:37 Neut # (Auto) 11.2 10^3/uL (1.5-6.6) H 09/05/21 04:37 Lymph # (Auto) 1.6 10^3/uL (1.5-3.5) 09/05/21 04:37 [place] # (Auto) 0.9 10^3/uL (0.0-1.0) 09/05/21 04:37 Eos # (Auto) 0.2 10^3/uL (0.0-0.7) 09/05/21 04:37 Baso # (Auto) 0.1 10^3/uL (0.0-0.1) 09/05/21 04:37 Absolute Nucleated RBC 0.00 x10^3/uL 09/05/21 04:37 Total Counted 100 09/01/21 05:20 Band Neuts % (Manual) 1 % (0-10) 09/01/21 05:20 Abnorm Lymph % (Manual) 0 % 09/01/21 05:20 Nucleated RBC % 0.0 /100WBC 09/05/21 04:37 Neutrophils # (Manual) 9.1 10^3/uL (1.5-6.6) H 09/01/21 05:20 Lymphocytes # (Manual) 1.6 10^3/uL (1.5-3.5) 09/01/21 05:20 Monocytes # (Manual) 0.7 10^3/uL (0.0-1.0) 09/01/21 05:20 Eosinophils # (Manual) 0.2 10^3/uL (0-0.7) 09/01/21 05:20 Basophils # (Manual) 0.0 10^3/uL (0-0.1) 09/01/21 05:20 Differential Comment MANUAL DIFFERENTIAL 09/01/21 05:20 Manual Slide Review Indicated 08/27/21 15:25 WBC Morphology NORMAL APPEARANCE (NORMAL) 09/01/21 05:20 Platelet Estimate NORMAL (130-450,000) (NORMAL) 09/01/21 05:20 Platelet Morphology NORMAL APPEARANCE (NORMAL) 09/01/21 05:20 RBC Morph Micro Appear NORMAL APPEARANCE (NORMAL) 09/01/21 05:20 PT 20.4 secs (9.9-12.6) H 09/02/21 05:16 INR 1.8 (0.8-1.2) H 09/02/21 05:16 Sodium 136 mmol/L (135-145) 09/05/21 04:37 Potassium 3.6 mmol/L (3.5-5.0) 09/05/21 04:37 Chloride 103 mmol/L (101-111) 09/05/21 04:37 Carbon Dioxide 24 mmol/L (21-32) 09/05/21 04:37 Anion Gap 9.0 (6-13) 09/05/21 04:37 BUN 5 mg/dL (6-20) L 09/05/21 04:37 Creatinine 0.8 mg/dL (0.6-1.2) 09/05/21 04:37 Estimated GFR (MDRD) 93 (>89) 09/05/21 04:37 Glucose 102 mg/dL (70-100) H 09/05/21 04:37 Lactic Acid 1.3 mmol/L (0.5-2.2) 08/27/21 15:25 Calcium 7.4 mg/dL (8.5-10.3) L 09/05/21 04:37 Magnesium 1.9 mg/dL (1.7-2.8) 08/29/21 04:43 Total Bilirubin 0.9 mg/dL (0.2-1.0) 09/04/21 11:27 Direct Bilirubin 0.2 mg/dL (0.1-0.5) 09/04/21 11:27 AST 34 IU/L (10-42) 09/04/21 11:27 ALT 42 IU/L (10-60) 09/04/21 11:27 Alkaline Phosphatase 49 IU/L (42-121) 09/04/21 11:27 B-Natriuretic Peptide 335 pg/mL (5-100) H 08/27/21 15:25 Total Protein 6.0 g/dL (6.7-8.2) L 09/04/21 11:27 Albumin 2.3 g/dL (3.2-5.5) L 09/04/21 11:27 Globulin 3.7 g/dL (2.1-4.2) 09/04/21 11:27 Albumin/Globulin Ratio 0.8 (1.0-2.2) L 08/27/21 15:25 Urine Color DARK YELLOW 08/27/21 16:15 Urine Clarity CLEAR (CLEAR) 08/27/21 16:15 Urine pH 5.5 PH (5.0-7.5) 08/27/21 16:15 Ur Specific [place] >=1.030 (1.002-1.030) H 08/27/21 16:15 Urine Protein 100 mg/dL (NEGATIVE) H 08/27/21 16:15 Urine Glucose (UA) NEGATIVE mg/dL (NEGATIVE) 08/27/21 16:15 Urine Ketones NEGATIVE mg/dL (NEGATIVE) 08/27/21 16:15 Urine Occult Blood SMALL (NEGATIVE) H 08/27/21 16:15 Urine Nitrite NEGATIVE (NEGATIVE) 08/27/21 16:15 Urine Bilirubin NEGATIVE (NEGATIVE) 08/27/21 16:15 Urine Urobilinogen 0.2 (NORMAL) E.U./dL (NORMAL) 08/27/21 16:15 Ur Leukocyte Esterase NEGATIVE (NEGATIVE) 08/27/21 16:15 Urine RBC 0-5 /HPF (0-5) 08/27/21 16:15 Urine WBC 0-3 /HPF (0-3) 08/27/21 16:15 Ur Epithelial Cells FEW Transitional /HPF (<= Few) 08/27/21 16:15 Ur Squamous Epith Cells RARE Squamous (<= Few) 08/27/21 16:15 Urine Bacteria Rare /HPF (None Seen) 08/27/21 16:15 Urine Mucus Few Strands 08/27/21 16:15 Urine Culture Comments NOT INDICATED 08/27/21 16:15 Fluid Source 09/02/21 10:50 Fluid Color PINK 09/02/21 10:50 Fluid Clarity TURBID 09/02/21 10:50 Fluid WBC 797384 /mm^3 09/02/21 10:50 Fluid RBC 880422 /mm^3 09/02/21 10:50 Fluid Neutrophils % 90.0 % 09/02/21 10:50 Fluid Lymphocytes % 9.0 % 09/02/21 10:50 Fluid Macrophages % 1.0 % 09/02/21 10:50 Fld Mesothelial Cell % Not Reportable 09/02/21 10:50 Nasal Adenovirus (PCR) NOT DETECTED 08/27/21 15:17 Nasal B. parapertussis DNA (PCR) NOT DETECTED 08/27/21 15:17 Nasal Coronavir 229E PCR NOT DETECTED 08/27/21 15:17 Nasal Coronavir HKU1 PCR NOT DETECTED 08/27/21 15:17 Nasal Coronavir NL63 PCR NOT DETECTED 08/27/21 15:17 Nasal Coronavir OC43 PCR NOT DETECTED 08/27/21 15:17 Nasal Enterovir/Rhinovir PCR NOT DETECTED 08/27/21 15:17 Nasal Influenza B PCR NOT DETECTED 08/27/21 15:17 Nasal Influenza A PCR NOT DETECTED 08/27/21 15:17 Nasal Parainfluen 1 PCR NOT DETECTED 08/27/21 15:17 Nasal Parainfluen 2 PCR NOT DETECTED 08/27/21 15:17 Nasal Parainfluen 3 PCR NOT DETECTED 08/27/21 15:17 Nasal Parainfluen 4 PCR NOT DETECTED 08/27/21 15:17 Nasal RSV (PCR) NOT DETECTED 08/27/21 15:17 Nasal B.pertussis DNA PCR NOT DETECTED 08/27/21 15:17 Nasal C.pneumoniae (PCR) NOT DETECTED 08/27/21 15:17 Nura Human Metapneumo PCR NOT DETECTED 08/27/21 15:17 Nasal M.pneumoniae (PCR) NOT DETECTED 08/27/21 15:17 Nasal SARS-CoV-2 (PCR) NOT DETECTED 08/27/21 15:17 Hepatitis A IgM Ab NON-REACTIVE (NON-REACTIVE) 08/27/21 15:25 Hep Bs Antigen NON-REACTIVE (NON-REACTIVE) 08/27/21 15:25 Hep B Core IgM Ab NON-REACTIVE (NON-REACTIVE) 08/27/21 15:25 Hepatitis C Antibody NON-REACTIVE (NON-REACTIVE) 08/27/21 15:25 Hep C Ab Signal/Cutoff 0.00 (<1.00) 08/27/21 15:25 Blood Type Cancelled 09/01/21 14:42 Blood Type Recheck A POSITIVE 09/01/21 05:20 ABX Reporting Has patient been on IV antibiotics over the past 48 hours?: Yes
[2021-09-05] MEDS: MIN OIL/DIMETHICON/COCONUT OIL 92 GM TUBE TOP PRN (08:00)
[2021-09-05] MEDS ORDERED: IOVERSOL 320 100 ML VIAL IVP ONE ×2 (08:06→09:42)
[2021-09-05] MEDS: MAGNESIUM OXIDE 400 MG TABLET PO SCH (08:38)
[2021-09-05] MEDS: FUROSEMIDE 20 MG/2 ML VIAL IVP SCH (09:02)
[2021-09-05] MEDS ORDERED: ZINC OXIDE 20% OINT 30 GM TUBE TOP PRN (09:18)
--- NOTE | 2021-09-05 09:58 | CT Report ---
PROCEDURE: Abdomen/Pelvis W INDICATIONS: Elevated WBC, liver abscess w/ drain CONTRAST: IV CONTRAST: Optiray 320 ml: 100 PO CONTRAST: *NO PO CONTRAST TECHNIQUE: After the administration of IV contrast, 5 mm thick sections acquired from the diaphragms to the symp hysis. 5 mm thick coronal and sagittal reformats were acquired. For radiation dose reduction, the f ollowing was used: automated exposure control, adjustment of mA and/or kV according to patient size. COMPARISON: August 30 2021 FINDINGS: Inferior chest: Moderate right and trace left pleural effusions with adjacent atelectasis. Mild card iomegaly with coronary artery calcification and trace pleural effusion/thickening. Gallbladder: Mildly prominent gallbladder wall, which may be reactive. A 4.2 mm gallstone or polyp i s seen (series 6, image 32) Biliary tree: No intra-or extrahepatic biliary ductal dilatation. Liver: The liver demonstrates normal enhancement, size, and contour. Spleen: Normal enhancement, size and morphology is seen. Pancreas: Normal morphology without masses or inflammatory changes. Adrenals: Normal size without masses. Kidneys/ureters: Symmetric enhancement without evidence of obstructive uropathy. Bilateral multicysti c changes seen with largest cyst seen in the left upper pole measuring 7.4 cm. Vasculature: No evidence of aneurysm or other significant vascular pathology. Lymphatic system: No pathologic enlargement by size criteria. GI/mesentery: No evidence of intestinal obstruction. Scattered colonic diverticuli. Mild wall thicken ing of the rectosigmoid colon. Peritoneum/Retroperitoneum: Persistent fluid collections in the right upper quadrant with pigtail cat heter drain in close proximity (series 3, image 36), largest collection now measuring approximately 5 .2 x 4.1 cm. Small amount of fluid in the presacral region. Free intraperitoneal gas is again demonstrated. Urinary bladder: Mild wall thickening of the urinary bladder, likely secondary to the prostate. Pelvic organs: Enlargement of prostate, measuring 5.8 cm in transverse dimension. Bones/soft tissues: No acute osseous abnormality. Right flank soft tissue density, compatible with ed delia. IMPRESSION: 1.Interval decreased size of the patient's right upper quadrant abscesses. 2.Mild wall thickening of the urinary bladder, likely secondary to an enlarged prostate 3.Mild wall thickening of the rectosigmoid colon with presacral fluid, which is nonspecific but may r eflect infectious or inflammatory process. 4.Increased bilateral pleural effusions. Reviewed by: Toro Thomas MD on 09/05/2021 9:57 AM PDT Approved by: Toro Thomas MD on 09/05/2021 9:57 AM PDT Station ID: [id number]
[2021-09-05] MEDS: CIPROFLOXACIN 400 MG/200 ML 400 MG/200 ML BAG IV SCH (12:18)
[2021-09-05] MEDS: ZINC OXIDE 20% OINT 30 GM TUBE TOP PRN ×2 (12:22→14:23)
[2021-09-05] MEDS: metroNIDAZOLE 500 MG/100 ML 500 MG/100 ML BAG IV SCH ×2 (14:03→21:55)
[2021-09-06] MEDS: CIPROFLOXACIN 400 MG/200 ML 400 MG/200 ML BAG IV SCH ×2 (00:11→12:18)
[2021-09-06] MEDS: SODIUM CHLORIDE FLUSH 0.9% 10 ML SYRINGE IVP SCH ×3 (00:12→17:21)
[2021-09-06] MEDS: metroNIDAZOLE 500 MG/100 ML 500 MG/100 ML BAG IV SCH ×3 (06:14→22:07)
[2021-09-06 06:54] LABS: BASOPHILS # (AUTO) 0.1 10^3/uL (0.0-0.1); BASOPHILS % (AUTO) 0.5 %; EOSINOPHILS # (AUTO) 0.3 10^3/uL (0.0-0.7); HCT - HEMATOCRIT 29.7 % (42.0-52.0); HGB - HEMOGLOBIN 9.7 g/dL (14.0-18.0); LYMPHOCYTES # (AUTO) 1.5 10^3/uL (1.5-3.5); LYMPHOCYTES % (AUTO) 11.5 %; MEAN CORPUSCULAR HEMOGLOBIN 30.5 pg (27.0-31.0); MEAN CORPUSCULAR HGB CONC 32.7 g/dL (32.0-36.0); MEAN CORPUSCULAR VOLUME 93.4 fL (80.0-94.0); MEAN PLATELET VOLUME 8.9 fL (7.4-11.4); MONOCYTES # (AUTO) 0.9 10^3/uL (0.0-1.0); MONOCYTES % (AUTO) 7.1 %; NEUTROPHILS # (AUTO) 9.8 10^3/uL (1.5-6.6); NEUTROPHILS % (AUTO) 76.8 %; PLT - PLATELET COUNT 465 10^3/uL (130-450); RED BLOOD COUNT 3.18 10^6/uL (4.70-6.10); RED CELL DISTRIBUTION WIDTH 14.1 % (12.0-15.0); WHITE BLOOD COUNT 12.7 x10^3/uL (4.8-10.8)
[2021-09-06 07:00] LABS: CALCIUM 7.4 mg/dL (8.5-10.3); CREATININE 0.9 mg/dL (0.6-1.2); POTASSIUM 3.3 mmol/L (3.5-5.0)
[2021-09-06] MEDS: MAGNESIUM OXIDE 400 MG TABLET PO SCH (08:14)
[2021-09-06] MEDS: FUROSEMIDE 20 MG/2 ML VIAL IVP SCH (08:15)
--- NOTE | 2021-09-06 08:33 | PROVIDER PROGRESS NOTE ---
Assessment/Plan - Problem List (1) Liver abscess Assessment/Plan: Patient's white blood cell count improved from 14.4 yesterday to 12.7 today () Drainage from percutaneous tube is decreased serosanguineous. Cultures grew E. coli. Repeat CT of the abdomen/pelvis with contrast was done on 09/05/2021. It showed interval decreased size of the patient's right upper quadrant abscesses. There was mild wall thickening of the urinary bladder, likely secondary to an enlarged prostate. There was mild wall thickening of the rectosigmoid colon with presacral fluid which is nonspecific but may reflect infectious or inflammatory process. There was increased bilateral pleural effusions. Patient's Zosyn was discontinued on 09/05/21 and he was started on Cipro 400 mg IV twice daily and Flagyl 500 mg IV 3 times daily for a total of 5 days. Anticipating discharge to a nursing home facility on 09/08/2021 (2) Perforated abdominal viscus Assessment/Plan: Repeat CT of the abdomen/pelvis with contrast was done on 09/05/2021. It showed interval decreased size of the patient's right upper quadrant abscesses. There was mild wall thickening of the urinary bladder, likely secondary to an enlarged prostate. There was mild wall thickening of the rectosigmoid colon with presacral fluid which is nonspecific but may reflect infectious or inflammatory process. There was increased bilateral pleural effusions. There was no account of perforation. General surgery also following. No surgical intervention warranted at this time. (3) Bacteremia Assessment/Plan: This was coagulase-negative Staphylococcus. It is suspected to be a contaminant. (4) Pulmonary edema Assessment/Plan: On Lasix 20 mg IV every 24 hours. (5) Pneumonia Assessment/Plan: Chest x-ray done at admission suggested pneumonia. He was initially on Rocephin and azithromycin. His antibiotics were subsequently switched to Zosyn. Patient is currently on Cipro and Flagyl (6) Elevated liver enzymes Assessment/Plan: Improved/resolved. We will continue to monitor. (7) Acute metabolic encephalopathy Assessment/Plan: He is at baseline. He has a flat affect. He also has history of dementia. (8) Dementia Qualifiers: Dementia type: unspecified type Dementia behavioral disturbance: without behavioral disturbance Qualified Code(s): F03.90 - Unspecified dementia without behavioral disturbance Assessment/Plan: This is reported in patient's medical record. 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 This is thought to be secondary to alcohol abuse. Patient is not on any medication. No behavioral disturbances noted. (9) Diarrhea Assessment/Plan: Secondary to antibiotic use. C. difficile test pending. Patient is currently on Cipro and Flagyl. (8) Dementia Qualifiers: Dementia type: unspecified type Dementia behavioral disturbance: without behavioral disturbance Qualified Code(s): F03.90 - Unspecified dementia without behavioral disturbance - Current Meds Current Meds: Current Medications Generic Name Dose Route Start Last Admin Trade Name Freq PRN Reason Stop Dose Admin Furosemide 20 mg 09/06/21 09:00 09/06/21 08:15 Furosemide 20 Mg/2 Ml Vial IVP 20 mg DAILY LAVONNE Administration Ciprofloxacin 400 mg in 200 mls @ 200 mls/hr 09/05/21 12:30 09/06/21 01:15 Cipro 400 Mg/200 Ml IV 09/10/21 01:29 Infused Q12H LAVONNE Infusion Metronidazole 500 mg in 100 mls @ 100 mls/hr 09/05/21 14:00 09/06/21 08:00 Flagyl 500 Mg/100 Ml IV 09/10/21 06:59 Infused Q8H LAVONNE Infusion Magnesium Oxide 400 mg 09/01/21 09:00 09/06/21 08:14 Magnesium Oxide 400 Mg Tablet PO 400 mg DAILYWM LAVONNE Administration Methocarbamol 500 mg 09/01/21 08:47 09/03/21 18:58 Methocarbamol 500 Mg Tablet PO 500 mg Q6HR PRN Administration Spasms Mineral Oil 1 applic 08/30/21 05:31 09/05/21 08:00 Min Oil/Dimethicon/Coconut Oil 92 Gm Tube TOP 1 applic PRN PRN Administration Skin Care Multi-Ingredient Ointment 1 applic 08/28/21 11:59 09/05/21 14:23 Zinc Oxide 20% Oint 30 Gm Tube TOP 1 applic PRN PRN Administration Skin Care Sodium Chloride 10 ml 08/27/21 17:44 09/01/21 09:15 Sodium Chloride Flush 0.9% 10 Ml Syringe IVP 10 ml PRN PRN Administration NEEDED PER PROVIDER ORDERS Sodium Chloride 10 ml 08/28/21 01:00 09/06/21 08:15 Sodium Chloride Flush 0.9% 10 Ml Syringe IVP 10 ml 0100,0900,1700 [facility] Administration - Lab Result Fish Bone Diagrams: 09/06/21 06:28 09/06/21 06:28 - Additional Planning My Orders: My Active Orders 09/05/21 12:30 Ciprofloxacin 400 mg/200 ml [Cipro 400 mg/200 ml] 400 mg in 200 ml IV Q12H 09/05/21 14:00 metroNIDAZOLE 500 MG/100 ML [Flagyl 500 mg/100 ml] 500 mg in 100 ml IV Q8H 09/06/21 09:00 FUROSEMIDE INJ 20mg VIAL [LASIX INJ 20mg VIAL] 20 mg IVP DAILY Subjective - Subjective Patient Reports: Other (Seated in the bedside chair at time of exam. Appeared comfortable. Denied any complaints.) Objective Vital Signs: Vital Signs - 24 hr 09/05/21 09/05/21 09/05/21 10:15 16:00 23:42 Temperature 36.6 C 367 C H 36.7 C Heart Rate [ 56 L 57 L 61 Brachial] Respiratory 17 18 16 Rate Blood Pressure 153/73 H 146/66 H 126/63 [Right Brachial artery] O2 Saturation 94 99 95 Oxygen O2 Source Room air I&O (Last 24 Hrs): Intake and Output Totals x24h 09/04/21 09/05/21 09/06/21 23:59 23:59 23:59 Intake Total 2485 3263.333 300 Output Total 20 30 Balance 2465 3233.333 300 General: Alert, No acute distress HEENT: PERRLA, EOMI Neck: Supple, No JVD Neuro: Alert Cardiovascular: Regular rate, No murmurs Respiratory: Chest non-tender, No respiratory distress, Breath sounds nml Abdomen: Normal bowel sounds, Soft Extremities: No clubbing, No edema, No tenderness/swelling Skin: No rashes, No breakdown - Results Results: Laboratory Results WBC 12.7 x10^3/uL (4.8-10.8) H 09/06/21 06:28 RBC 3.18 10^6/uL (4.70-6.10) L 09/06/21 06:28 Hgb 9.7 g/dL (14.0-18.0) L 09/06/21 06:28 Hct 29.7 % (42.0-52.0) L 09/06/21 06:28 MCV 93.4 fL (80.0-94.0) 09/06/21 06:28 MCH 30.5 pg (27.0-31.0) 09/06/21 06:28 MCHC 32.7 g/dL (32.0-36.0) 09/06/21 06:28 RDW 14.1 % (12.0-15.0) 09/06/21 06:28 Plt Count 465 10^3/uL (130-450) H 09/06/21 06:28 MPV 8.9 fL (7.4-11.4) 09/06/21 06:28 Neut # (Auto) 9.8 10^3/uL (1.5-6.6) H 09/06/21 06:28 Lymph # (Auto) 1.5 10^3/uL (1.5-3.5) 09/06/21 06:28 [place] # (Auto) 0.9 10^3/uL (0.0-1.0) 09/06/21 06:28 Eos # (Auto) 0.3 10^3/uL (0.0-0.7) 09/06/21 06:28 Baso # (Auto) 0.1 10^3/uL (0.0-0.1) 09/06/21 06:28 Absolute Nucleated RBC 0.00 x10^3/uL 09/06/21 06:28 Total Counted 100 09/01/21 05:20 Band Neuts % (Manual) 1 % (0-10) 09/01/21 05:20 Abnorm Lymph % (Manual) 0 % 09/01/21 05:20 Nucleated RBC % 0.0 /100WBC 09/06/21 06:28 Neutrophils # (Manual) 9.1 10^3/uL (1.5-6.6) H 09/01/21 05:20 Lymphocytes # (Manual) 1.6 10^3/uL (1.5-3.5) 09/01/21 05:20 Monocytes # (Manual) 0.7 10^3/uL (0.0-1.0) 09/01/21 05:20 Eosinophils # (Manual) 0.2 10^3/uL (0-0.7) 09/01/21 05:20 Basophils # (Manual) 0.0 10^3/uL (0-0.1) 09/01/21 05:20 Differential Comment MANUAL DIFFERENTIAL 09/01/21 05:20 Manual Slide Review Indicated 08/27/21 15:25 WBC Morphology NORMAL APPEARANCE (NORMAL) 09/01/21 05:20 Platelet Estimate NORMAL (130-450,000) (NORMAL) 09/01/21 05:20 Platelet Morphology NORMAL APPEARANCE (NORMAL) 09/01/21 05:20 RBC Morph Micro Appear NORMAL APPEARANCE (NORMAL) 09/01/21 05:20 PT 20.4 secs (9.9-12.6) H 09/02/21 05:16 INR 1.8 (0.8-1.2) H 09/02/21 05:16 Sodium 134 mmol/L (135-145) L 09/06/21 06:28 Potassium 3.3 mmol/L (3.5-5.0) L 09/06/21 06:28 Chloride 100 mmol/L (101-111) L 09/06/21 06:28 Carbon Dioxide 25 mmol/L (21-32) 09/06/21 06:28 Anion Gap 9.0 (6-13) 09/06/21 06:28 BUN 6 mg/dL (6-20) 09/06/21 06:28 Creatinine 0.9 mg/dL (0.6-1.2) 09/06/21 06:28 Estimated GFR (MDRD) 82 (>89) L 09/06/21 06:28 Glucose 107 mg/dL (70-100) H 09/06/21 06:28 Lactic Acid 1.3 mmol/L (0.5-2.2) 08/27/21 15:25 Calcium 7.4 mg/dL (8.5-10.3) L 09/06/21 06:28 Magnesium 1.9 mg/dL (1.7-2.8) 08/29/21 04:43 Total Bilirubin 0.9 mg/dL (0.2-1.0) 09/04/21 11:27 Direct Bilirubin 0.2 mg/dL (0.1-0.5) 09/04/21 11:27 AST 34 IU/L (10-42) 09/04/21 11:27 ALT 42 IU/L (10-60) 09/04/21 11:27 Alkaline Phosphatase 49 IU/L (42-121) 09/04/21 11:27 B-Natriuretic Peptide 335 pg/mL (5-100) H 08/27/21 15:25 Total Protein 6.0 g/dL (6.7-8.2) L 09/04/21 11:27 Albumin 2.3 g/dL (3.2-5.5) L 09/04/21 11:27 Globulin 3.7 g/dL (2.1-4.2) 09/04/21 11:27 Albumin/Globulin Ratio 0.8 (1.0-2.2) L 08/27/21 15:25 Urine Color DARK YELLOW 08/27/21 16:15 Urine Clarity CLEAR (CLEAR) 08/27/21 16:15 Urine pH 5.5 PH (5.0-7.5) 08/27/21 16:15 Ur Specific [place] >=1.030 (1.002-1.030) H 08/27/21 16:15 Urine Protein 100 mg/dL (NEGATIVE) H 08/27/21 16:15 Urine Glucose (UA) NEGATIVE mg/dL (NEGATIVE) 08/27/21 16:15 Urine Ketones NEGATIVE mg/dL (NEGATIVE) 08/27/21 16:15 Urine Occult Blood SMALL (NEGATIVE) H 08/27/21 16:15 Urine Nitrite NEGATIVE (NEGATIVE) 08/27/21 16:15 Urine Bilirubin NEGATIVE (NEGATIVE) 08/27/21 16:15 Urine Urobilinogen 0.2 (NORMAL) E.U./dL (NORMAL) 08/27/21 16:15 Ur Leukocyte Esterase NEGATIVE (NEGATIVE) 08/27/21 16:15 Urine RBC 0-5 /HPF (0-5) 08/27/21 16:15 Urine WBC 0-3 /HPF (0-3) 08/27/21 16:15 Ur Epithelial Cells FEW Transitional /HPF (<= Few) 08/27/21 16:15 Ur Squamous Epith Cells RARE Squamous (<= Few) 08/27/21 16:15 Urine Bacteria Rare /HPF (None Seen) 08/27/21 16:15 Urine Mucus Few Strands 08/27/21 16:15 Urine Culture Comments NOT INDICATED 08/27/21 16:15 Fluid Source 09/02/21 10:50 Fluid Color PINK 09/02/21 10:50 Fluid Clarity TURBID 09/02/21 10:50 Fluid WBC 561365 /mm^3 09/02/21 10:50 Fluid RBC 871777 /mm^3 09/02/21 10:50 Fluid Neutrophils % 90.0 % 09/02/21 10:50 Fluid Lymphocytes % 9.0 % 09/02/21 10:50 Fluid Macrophages % 1.0 % 09/02/21 10:50 Fld Mesothelial Cell % Not Reportable 09/02/21 10:50 Nasal Adenovirus (PCR) NOT DETECTED 08/27/21 15:17 Nasal B. parapertussis DNA (PCR) NOT DETECTED 08/27/21 15:17 Nasal Coronavir 229E PCR NOT DETECTED 08/27/21 15:17 Nasal Coronavir HKU1 PCR NOT DETECTED 08/27/21 15:17 Nasal Coronavir NL63 PCR NOT DETECTED 08/27/21 15:17 Nasal Coronavir OC43 PCR NOT DETECTED 08/27/21 15:17 Nasal Enterovir/Rhinovir PCR NOT DETECTED 08/27/21 15:17 Nasal Influenza B PCR NOT DETECTED 08/27/21 15:17 Nasal Influenza A PCR NOT DETECTED 08/27/21 15:17 Nasal Parainfluen 1 PCR NOT DETECTED 08/27/21 15:17 Nasal Parainfluen 2 PCR NOT DETECTED 08/27/21 15:17 Nasal Parainfluen 3 PCR NOT DETECTED 08/27/21 15:17 Nasal Parainfluen 4 PCR NOT DETECTED 08/27/21 15:17 Nasal RSV (PCR) NOT DETECTED 08/27/21 15:17 Nasal B.pertussis DNA PCR NOT DETECTED 08/27/21 15:17 Nasal C.pneumoniae (PCR) NOT DETECTED 08/27/21 15:17 Nura Human Metapneumo PCR NOT DETECTED 08/27/21 15:17 Nasal M.pneumoniae (PCR) NOT DETECTED 08/27/21 15:17 Nasal SARS-CoV-2 (PCR) NOT DETECTED 08/27/21 15:17 Stl C. diff Tox B Gene NEGATIVE (NEGATIVE) 09/05/21 11:50 Hepatitis A IgM Ab NON-REACTIVE (NON-REACTIVE) 08/27/21 15:25 Hep Bs Antigen NON-REACTIVE (NON-REACTIVE) 08/27/21 15:25 Hep B Core IgM Ab NON-REACTIVE (NON-REACTIVE) 08/27/21 15:25 Hepatitis C Antibody NON-REACTIVE (NON-REACTIVE) 08/27/21 15:25 Hep C Ab Signal/Cutoff 0.00 (<1.00) 08/27/21 15:25 Blood Type Cancelled 09/01/21 14:42 Blood Type Recheck A POSITIVE 09/01/21 05:20 ABX Reporting Has patient been on IV antibiotics over the past 48 hours?: Yes
[2021-09-06] MEDS: ZINC OXIDE 20% OINT 30 GM TUBE TOP PRN ×3 (08:38→13:50)
[2021-09-06] MEDS: MIN OIL/DIMETHICON/COCONUT OIL 92 GM TUBE TOP PRN ×2 (10:58→13:50)
[2021-09-06] MEDS: SODIUM CHLORIDE FLUSH 0.9% 10 ML SYRINGE IVP PRN (12:18)
[2021-09-06] MEDS ORDERED: POTASSIUM CHLORIDE 20 MEQ TABLET PO ONE (13:23)
[2021-09-06] MEDS ORDERED: ACETAMINOPHEN/CODEINE 300 MG/30 MG TABLET PO PRN (22:15)
[2021-09-07] MEDS: CIPROFLOXACIN 400 MG/200 ML 400 MG/200 ML BAG IV SCH ×2 (00:05→12:15)
[2021-09-07] MEDS: SODIUM CHLORIDE FLUSH 0.9% 10 ML SYRINGE IVP SCH ×3 (02:25→21:18)
[2021-09-07] MEDS: metroNIDAZOLE 500 MG/100 ML 500 MG/100 ML BAG IV SCH ×3 (05:56→21:18)
[2021-09-07] MEDS: FUROSEMIDE 20 MG/2 ML VIAL IVP SCH (09:11)
[2021-09-07] MEDS: MAGNESIUM OXIDE 400 MG TABLET PO SCH (09:11)
[2021-09-07] MEDS: ZINC OXIDE 20% OINT 30 GM TUBE TOP PRN (10:00)
[2021-09-07] MEDS: MIN OIL/DIMETHICON/COCONUT OIL 92 GM TUBE TOP PRN (10:00)
--- NOTE | 2021-09-07 10:51 | PROVIDER PROGRESS NOTE ---
Assessment/Plan - Problem List (1) Liver abscess Assessment/Plan: Patient's white blood cell countwas unchanged at 12.6 today (09/07/21) Patient accidentally pulled out his percutaneous drainage tube last night. Will reach out to IR tomorrow for recommendations regarding the tube. Drainage from percutaneous tube is decreased serosanguineous. Cultures grew E. coli. Repeat CT of the abdomen/pelvis with contrast was done on 09/05/2021. It showed interval decreased size of the patient's right upper quadrant abscesses. There was mild wall thickening of the urinary bladder, likely secondary to an enlarged prostate. There was mild wall thickening of the rectosigmoid colon with presacral fluid which is nonspecific but may reflect infectious or inflammatory process. There was increased bilateral pleural effusions. Patient's Zosyn was discontinued on 09/05/21 and he was started on Cipro 400 mg IV twice daily and Flagyl 500 mg IV 3 times daily for a total of 5 days. Anticipating discharge to a halfway facility on 09/08/2021 (2) Perforated abdominal viscus Assessment/Plan: Repeat CT of the abdomen/pelvis with contrast was done on 09/05/2021. It showed interval decreased size of the patient's right upper quadrant abscesses. There was mild wall thickening of the urinary bladder, likely secondary to an enlarged prostate. There was mild wall thickening of the rectosigmoid colon with presacral fluid which is nonspecific but may reflect infectious or inflammatory process. There was increased bilateral pleural effusions. There was no account of perforation. General surgery also following. No surgical intervention warranted at this time. (3) Bacteremia Assessment/Plan: This was coagulase-negative Staphylococcus. It is suspected to be a contaminant. (4) Pulmonary edema Assessment/Plan: On Lasix 20 mg IV every 24 hours. (5) Pneumonia Assessment/Plan: Chest x-ray done at admission suggested pneumonia. He was initially on Rocephin and azithromycin. His antibiotics were subsequently switched to Zosyn. Patient is currently on Cipro and Flagyl (6) Elevated liver enzymes Assessment/Plan: Improved/resolved. We will continue to monitor. (7) Acute metabolic encephalopathy Assessment/Plan: He is at baseline. He has a flat affect. He also has history of dementia. (8) Dementia Qualifiers: Dementia type: unspecified type Dementia behavioral disturbance: without behavioral disturbance Qualified Code(s): F03.90 - Unspecified dementia without behavioral disturbance Assessment/Plan: This is reported in patient's medical record. 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 This is thought to be secondary to alcohol abuse. Patient is not on any medication. No behavioral disturbances noted. (9) Diarrhea Assessment/Plan: Secondary to antibiotic use. C. difficile test pending. Patient is currently on Cipro and Flagyl. (8) Dementia Qualifiers: Dementia type: unspecified type Dementia behavioral disturbance: without behavioral disturbance Qualified Code(s): F03.90 - Unspecified dementia w ithout behavioral disturbance - Current Meds Current Meds: Current Medications Generic Name Dose Route Start Last Admin Trade Name Freq PRN Reason Stop Dose Admin Acetaminophen/Codeine Phosphate 1 tab 09/06/21 22:15 09/06/21 22:51 Acetaminophen/Codeine 300 Mg/30 Mg Tablet PO 1 tab Q4HR PRN Administration PAIN 5-7 Furosemide 20 mg 09/06/21 09:00 09/07/21 09:11 Furosemide 20 Mg/2 Ml Vial IVP 20 mg DAILY LAVONNE Administration Ciprofloxacin 400 mg in 200 mls @ 200 mls/hr 09/05/21 12:30 09/07/21 01:05 Cipro 400 Mg/200 Ml IV 09/10/21 01:29 Infused Q12H LAVONNE Infusion Metronidazole 500 mg in 100 mls @ 100 mls/hr 09/05/21 14:00 09/07/21 07:00 Flagyl 500 Mg/100 Ml IV 09/10/21 06:59 Infused Q8H LAVONNE Infusion Magnesium Oxide 400 mg 09/01/21 09:00 09/07/21 09:11 Magnesium Oxide 400 Mg Tablet PO 400 mg DAILYWM LAVONNE Administration Methocarbamol 500 mg 09/01/21 08:47 09/03/21 18:58 Methocarbamol 500 Mg Tablet PO 500 mg Q6HR PRN Administration Spasms Mineral Oil 1 applic 08/30/21 05:31 09/06/21 13:50 Min Oil/Dimethicon/Coconut Oil 92 Gm Tube TOP 1 applic PRN PRN Administration Skin Care Multi-Ingredient Ointment 1 applic 08/28/21 11:59 09/06/21 13:50 Zinc Oxide 20% Oint 30 Gm Tube TOP 1 applic PRN PRN Administration Skin Care Sodium Chloride 10 ml 08/27/21 17:44 09/06/21 12:18 Sodium Chloride Flush 0.9% 10 Ml Syringe IVP 10 ml PRN PRN Administration NEEDED PER PROVIDER ORDERS Sodium Chloride 10 ml 08/28/21 01:00 09/07/21 09:11 Sodium Chloride Flush 0.9% 10 Ml Syringe IVP 10 ml 0100,0900,1700 LAVONNE Administration - Lab Result Fish Bone Diagrams: 09/07/21 11:17 09/07/21 11:17 - Additional Planning My Orders: My Active Orders 09/07/21 10:35 BMP - BASIC METABOLIC PANEL [CHEM] Routine CBC - COMP BLD CT W/AUTO DIFF [HEME] Routine 09/08/21 05:00 BMP - BASIC METABOLIC PANEL [CHEM] DAILYLAB CBC - COMP BLD CT W/AUTO DIFF [HEME] DAILYLAB 09/09/21 05:00 BMP - BASIC METABOLIC PANEL [CHEM] DAILYLAB CBC - COMP BLD CT W/AUTO DIFF [HEME] DAILYLAB 09/10/21 05:00 BMP - BASIC METABOLIC PANEL [CHEM] DAILYLAB CBC - COMP BLD CT W/AUTO DIFF [HEME] DAILYLAB 09/11/21 05:00 BMP - BASIC METABOLIC PANEL [CHEM] DAILYLAB CBC - COMP BLD CT W/AUTO DIFF [HEME] DAILYLAB 09/12/21 05:00 BMP - BASIC METABOLIC PANEL [CHEM] DAILYLAB CBC - COMP BLD CT W/AUTO DIFF [HEME] DAILYLAB Subjective - Subjective Patient Reports: Other (Seated in the bedside chair at time of exam. He was wrapped in blankets at time of exam because he was cold. It was reported that jose david kent accidentally pulled out the percutaneous drainage tube last night.) Objective Vital Signs: Vital Signs - 24 hr 09/06/21 09/06/21 09/07/21 16:00 17:04 00:21 Temperature 37.2 C 36.8 C 36.8 C Heart Rate [ 73 72 84 Brachial] Respiratory 17 18 17 Rate Blood Pressure 150/75 H 154/91 H 139/75 H [Right Brachial artery] O2 Saturation 98 96 95 09/07/21 08:00 Temperature 36.5 C Heart Rate [ 60 Brachial] Respiratory 18 Rate Blood Pressure 144/84 H [Right Brachial artery] O2 Saturation 95 Oxygen O2 Source Room air I&O (Last 24 Hrs): Intake and Output Totals x24h 09/05/21 09/06/21 09/07/21 23:59 23:59 23:59 Intake Total 3263.333 1885 400 Output Total 30 21 300 Balance 3233.333 1864 100 Comments/Notes: General: Alert, No acute distress HEENT: PERRLA, EOMI Neck: Supple, No JVD Neuro: Alert Cardiovascular: Regular rate, No murmurs Respiratory: Chest non-tender, No respiratory distress, Breath sounds nml Abdomen: Normal bowel sounds, Soft Extremities: No clubbing, No edema, No tenderness/swelling Skin: No rashes, No breakdown - Results Results: Laboratory Results WBC 12.7 x10^3/uL (4.8-10.8) H 09/06/21 06:28 RBC 3.18 10^6/uL (4.70-6.10) L 09/06/21 06:28 Hgb 9.7 g/dL (14.0-18.0) L 09/06/21 06:28 Hct 29.7 % (42.0-52.0) L 09/06/21 06:28 MCV 93.4 fL (80.0-94.0) 09/06/21 06:28 MCH 30.5 pg (27.0-31.0) 09/06/21 06:28 MCHC 32.7 g/dL (32.0-36.0) 09/06/21 06:28 RDW 14.1 % (12.0-15.0) 09/06/21 06:28 Plt Count 465 10^3/uL (130-450) H 09/06/21 06:28 MPV 8.9 fL (7.4-11.4) 09/06/21 06:28 Neut # (Auto) 9.8 10^3/uL (1.5-6.6) H 09/06/21 06:28 Lymph # (Auto) 1.5 10^3/uL (1.5-3.5) 09/06/21 06:28 [place] # (Auto) 0.9 10^3/uL (0.0-1.0) 09/06/21 06:28 Eos # (Auto) 0.3 10^3/uL (0.0-0.7) 09/06/21 06:28 Baso # (Auto) 0.1 10^3/uL (0.0-0.1) 09/06/21 06:28 Absolute Nucleated RBC 0.00 x10^3/uL 09/06/21 06:28 Total Counted 100 09/01/21 05:20 Band Neuts % (Manual) 1 % (0-10) 09/01/21 05:20 Abnorm Lymph % (Manual) 0 % 09/01/21 05:20 Nucleated RBC % 0.0 /100WBC 09/06/21 06:28 Neutrophils # (Manual) 9.1 10^3/uL (1.5-6.6) H 09/01/21 05:20 Lymphocytes # (Manual) 1.6 10^3/uL (1.5-3.5) 09/01/21 05:20 Monocytes # (Manual) 0.7 10^3/uL (0.0-1.0) 09/01/21 05:20 Eosinophils # (Manual) 0.2 10^3/uL (0-0.7) 09/01/21 05:20 Basophils # (Manual) 0.0 10^3/uL (0-0.1) 09/01/21 05:20 Differential Comment MANUAL DIFFERENTIAL 09/01/21 05:20 Manual Slide Review Indicated 08/27/21 15:25 WBC Morphology NORMAL APPEARANCE (NORMAL) 09/01/21 05:20 Platelet Estimate NORMAL (130-450,000) (NORMAL) 09/01/21 05:20 Platelet Morphology NORMAL APPEARANCE (NORMAL) 09/01/21 05:20 RBC Morph Micro Appear NORMAL APPEARANCE (NORMAL) 09/01/21 05:20 PT 20.4 secs (9.9-12.6) H 09/02/21 05:16 INR 1.8 (0.8-1.2) H 09/02/21 05:16 Sodium 134 mmol/L (135-145) L 09/06/21 06:28 Potassium 3.3 mmol/L (3.5-5.0) L 09/06/21 06:28 Chloride 100 mmol/L (101-111) L 09/06/21 06:28 Carbon Dioxide 25 mmol/L (21-32) 09/06/21 06:28 Anion Gap 9.0 (6-13) 09/06/21 06:28 BUN 6 mg/dL (6-20) 09/06/21 06:28 Creatinine 0.9 mg/dL (0.6-1.2) 09/06/21 06:28 Estimated GFR (MDRD) 82 (>89) L 09/06/21 06:28 Glucose 107 mg/dL (70-100) H 09/06/21 06:28 Lactic Acid 1.3 mmol/L (0.5-2.2) 08/27/21 15:25 Calcium 7.4 mg/dL (8.5-10.3) L 09/06/21 06:28 Magnesium 1.9 mg/dL (1.7-2.8) 08/29/21 04:43 Total Bilirubin 0.9 mg/dL (0.2-1.0) 09/04/21 11:27 Direct Bilirubin 0.2 mg/dL (0.1-0.5) 09/04/21 11:27 AST 34 IU/L (10-42) 09/04/21 11:27 ALT 42 IU/L (10-60) 09/04/21 11:27 Alkaline Phosphatase 49 IU/L (42-121) 09/04/21 11:27 B-Natriuretic Peptide 335 pg/mL (5-100) H 08/27/21 15:25 Total Protein 6.0 g/dL (6.7-8.2) L 09/04/21 11:27 Albumin 2.3 g/dL (3.2-5.5) L 09/04/21 11:27 Globulin 3.7 g/dL (2.1-4.2) 09/04/21 11:27 Albumin/Globulin Ratio 0.8 (1.0-2.2) L 08/27/21 15:25 Urine Color DARK YELLOW 08/27/21 16:15 Urine Clarity CLEAR (CLEAR) 08/27/21 16:15 Urine pH 5.5 PH (5.0-7.5) 08/27/21 16:15 Ur Specific [place] >=1.030 (1.002-1.030) H 08/27/21 16:15 Urine Protein 100 mg/dL (NEGATIVE) H 08/27/21 16:15 Urine Glucose (UA) NEGATIVE mg/dL (NEGATIVE) 08/27/21 16:15 Urine Ketones NEGATIVE mg/dL (NEGATIVE) 08/27/21 16:15 Urine Occult Blood SMALL (NEGATIVE) H 08/27/21 16:15 Urine Nitrite NEGATIVE (NEGATIVE) 08/27/21 16:15 Urine Bilirubin NEGATIVE (NEGATIVE) 08/27/21 16:15 Urine Urobilinogen 0.2 (NORMAL) E.U./dL (NORMAL) 08/27/21 16:15 Ur Leukocyte Esterase NEGATIVE (NEGATIVE) 08/27/21 16:15 Urine RBC 0-5 /HPF (0-5) 08/27/21 16:15 Urine WBC 0-3 /HPF (0-3) 08/27/21 16:15 Ur Epithelial Cells FEW Transitional /HPF (<= Few) 08/27/21 16:15 Ur Squamous Epith Cells RARE Squamous (<= Few) 08/27/21 16:15 Urine Bacteria Rare /HPF (None Seen) 08/27/21 16:15 Urine Mucus Few Strands 08/27/21 16:15 Urine Culture Comments NOT INDICATED 08/27/21 16:15 Fluid Source 09/02/21 10:50 Fluid Color PINK 09/02/21 10:50 Fluid Clarity TURBID 09/02/21 10:50 Fluid WBC 856238 /mm^3 09/02/21 10:50 Fluid RBC 822505 /mm^3 09/02/21 10:50 Fluid Neutrophils % 90.0 % 09/02/21 10:50 Fluid Lymphocytes % 9.0 % 09/02/21 10:50 Fluid Macrophages % 1.0 % 09/02/21 10:50 Fld Mesothelial Cell % Not Reportable 09/02/21 10:50 Nasal Adenovirus (PCR) NOT DETECTED 08/27/21 15:17 Nasal B. parapertussis DNA (PCR) NOT DETECTED 08/27/21 15:17 Nasal Coronavir 229E PCR NOT DETECTED 08/27/21 15:17 Nasal Coronavir HKU1 PCR NOT DETECTED 08/27/21 15:17 Nasal Coronavir NL63 PCR NOT DETECTED 08/27/21 15:17 Nasal Coronavir OC43 PCR NOT DETECTED 08/27/21 15:17 Nasal Enterovir/Rhinovir PCR NOT DETECTED 08/27/21 15:17 Nasal Influenza B PCR NOT DETECTED 08/27/21 15:17 Nasal Influenza A PCR NOT DETECTED 08/27/21 15:17 Nasal Parainfluen 1 PCR NOT DETECTED 08/27/21 15:17 Nasal Parainfluen 2 PCR NOT DETECTED 08/27/21 15:17 Nasal Parainfluen 3 PCR NOT DETECTED 08/27/21 15:17 Nasal Parainfluen 4 PCR NOT DETECTED 08/27/21 15:17 Nasal RSV (PCR) NOT DETECTED 08/27/21 15:17 Nasal B.pertussis DNA PCR NOT DETECTED 08/27/21 15:17 Nasal C.pneumoniae (PCR) NOT DETECTED 08/27/21 15:17 Nura Human Metapneumo PCR NOT DETECTED 08/27/21 15:17 Nasal M.pneumoniae (PCR) NOT DETECTED 08/27/21 15:17 Nasal SARS-CoV-2 (PCR) NOT DETECTED 08/27/21 15:17 Stl C. diff Tox B Gene NEGATIVE (NEGATIVE) 09/05/21 11:50 Hepatitis A IgM Ab NON-REACTIVE (NON-REACTIVE) 08/27/21 15:25 Hep Bs Antigen NON-REACTIVE (NON-REACTIVE) 08/27/21 15:25 Hep B Core IgM Ab NON-REACTIVE (NON-REACTIVE) 08/27/21 15:25 Hepatitis C Antibody NON-REACTIVE (NON-REACTIVE) 08/27/21 15:25 Hep C Ab Signal/Cutoff 0.00 (<1.00) 08/27/21 15:25 Blood Type Cancelled 09/01/21 14:42 Blood Type Recheck A POSITIVE 09/01/21 05:20 ABX Reporting Has patient been on IV antibiotics over the past 48 hours?: Yes
[2021-09-07 11:23] LABS: BASOPHILS # (AUTO) 0.1 10^3/uL (0.0-0.1); BASOPHILS % (AUTO) 0.6 %; EOSINOPHILS # (AUTO) 0.2 10^3/uL (0.0-0.7); EOSINOPHILS % (AUTO) 1.2 %; HCT - HEMATOCRIT 34.3 % (42.0-52.0); HGB - HEMOGLOBIN 11.2 g/dL (14.0-18.0); LYMPHOCYTES # (AUTO) 1.4 10^3/uL (1.5-3.5); LYMPHOCYTES % (AUTO) 10.7 %; MEAN CORPUSCULAR HEMOGLOBIN 30.8 pg (27.0-31.0); MEAN CORPUSCULAR HGB CONC 32.7 g/dL (32.0-36.0); MEAN CORPUSCULAR VOLUME 94.2 fL (80.0-94.0); MEAN PLATELET VOLUME 8.6 fL (7.4-11.4); MONOCYTES # (AUTO) 0.9 10^3/uL (0.0-1.0); MONOCYTES % (AUTO) 6.8 %; NEUTROPHILS % (AUTO) 79.2 %; PLT - PLATELET COUNT 506 10^3/uL (130-450); RED BLOOD COUNT 3.64 10^6/uL (4.70-6.10); WHITE BLOOD COUNT 12.6 x10^3/uL (4.8-10.8)
[2021-09-07 11:31] LABS: CALCIUM 8.1 mg/dL (8.5-10.3); POTASSIUM 3.8 mmol/L (3.5-5.0)
[2021-09-07] MEDS: SODIUM CHLORIDE FLUSH 0.9% 10 ML SYRINGE IVP PRN (12:15)
[2021-09-08] MEDS: CIPROFLOXACIN 400 MG/200 ML 400 MG/200 ML BAG IV SCH ×2 (00:11→12:54)
[2021-09-08] MEDS: SODIUM CHLORIDE FLUSH 0.9% 10 ML SYRINGE IVP SCH ×3 (00:12→17:02)
[2021-09-08] MEDS: ZINC OXIDE 20% OINT 30 GM TUBE TOP PRN ×4 (00:37→22:06)
[2021-09-08] MEDS: metroNIDAZOLE 500 MG/100 ML 500 MG/100 ML BAG IV SCH ×3 (05:28→22:06)
[2021-09-08 06:29] LABS: BASOPHILS # (AUTO) 0.1 10^3/uL (0.0-0.1); BASOPHILS % (AUTO) 0.5 %; EOSINOPHILS # (AUTO) 0.2 10^3/uL (0.0-0.7); EOSINOPHILS % (AUTO) 1.6 %; HCT - HEMATOCRIT 32.2 % (42.0-52.0); LYMPHOCYTES # (AUTO) 1.3 10^3/uL (1.5-3.5); LYMPHOCYTES % (AUTO) 11.5 %; MEAN CORPUSCULAR HEMOGLOBIN 31.8 pg (27.0-31.0); MEAN CORPUSCULAR HGB CONC 34.2 g/dL (32.0-36.0); MEAN CORPUSCULAR VOLUME 93.1 fL (80.0-94.0); MEAN PLATELET VOLUME 8.8 fL (7.4-11.4); MONOCYTES % (AUTO) 8.1 %; NEUTROPHILS % (AUTO) 76.8 %; PLT - PLATELET COUNT 512 10^3/uL (130-450); RED BLOOD COUNT 3.46 10^6/uL (4.70-6.10); WHITE BLOOD COUNT 11.7 x10^3/uL (4.8-10.8)
[2021-09-08 06:33] LABS: CREATININE 0.8 mg/dL (0.6-1.2); POTASSIUM 3.5 mmol/L (3.5-5.0)
--- NOTE | 2021-09-08 07:53 | PROVIDER PROGRESS NOTE ---
Assessment/Plan - Problem List (1) Liver abscess Assessment/Plan: Patient's white blood cell count improved from 12.6 to 11.7 today (09/08/21) Patient accidentally pulled out his percutaneous drainage tube at night on 09/06/21. While it is possible to have the drainage tube replaced we will continue to mon itor patient's clinical symptoms. Plan to continue antibiotics specifically Cipro and Flagyl in the outpatient setting for 7 more days. If needed an ultrasound of the abdomen/pelvis focusing on the liver can be done in the future to reassess the status of the abscess. Drainage from percutaneous tube is decreased serosanguineous. Cultures grew E. coli. Repeat CT of the abdomen/pelvis with contrast was done on 09/05/2021. It showed interval decreased size of the patient's right upper quadrant ab scesses. There was mild wall thickening of the urinary bladder, likely secondary to an enlarged prostate. There was mild wall thickening of the rectosigmoid colon with presacral fluid which is nonspecific but may reflect infectious or inflammatory process. There was increased bilateral pleural effusions. Patient's Zosyn was discontinued on 09/05/21 and he was started on Cipro 400 mg IV twice daily and Flagyl 500 mg IV 3 times daily for a total of 5 days. Anticipating discharge to a intermediate facility on 09/08/2021 (2) Perforated abdominal viscus Assessment/Plan: Repeat CT of the abdomen/pelvis with contrast was done on 09/05/2021. It showed interval decreased size of the patient's right upper quadrant abscesses. There was mild wall thickening of the urinary bladder, likely secondary to an enlarged prostate. There was mild wall thickening of the rectosigmoid colon with presacral fluid which is nonspecific but may reflect infectious or inflammatory process. There was increased bilateral pleural effusions. There was no account of perforation. General surgery also following. No surgical intervention warranted at this time. (3) Bacteremia Assessment/Plan: This was coagulase-negative Staphylococcus. It is suspected to be a contaminant. (4) Pulmonary edema Assessment/Plan: On Lasix 20 mg IV every 24 hours. (5) Pneumonia Assessment/Plan: Chest x-ray done at admission suggested pneumonia. He was initially on Rocephin and azithromycin. His antibiotics were subsequently switched to Zosyn. Patient is currently on Cipro and Flagyl (6) Elevated liver enzymes Assessment/Plan: Improved/resolved. We will continue to monitor. (7) Acute metabolic encephalopathy Assessment/Plan: He is at baseline. He has a flat affect. He also has history of dementia. (8) Dementia Qualifiers: Dementia type: unspecified type Dementia behavioral disturbance: without behavioral disturbance Qualified Code(s): F03.90 - Unspecified dementia without behavioral disturbance Assessment/Plan: This is reported in patient's medical record. He has experienced significant drop in cognitive function between 2018 and April 2021 when at make up arranger was appointed. This is thought to be secondary to alcohol abuse. Patient is not on any medication. No behavioral disturbances noted. (9) Diarrhea Assessment/Plan: Secondary to antibiotic use. C. difficile test pending. Patient is currently on Cipro and Flagyl. (8) Dementia Qualifiers: Dementia type: unspecified type Dementia behavioral disturbance: without behavioral disturbance Qualified Code(s): F03.90 - Unspecified dementia withou t behavioral disturbance - Current Meds Current Meds: Current Medications Generic Name Dose Route Start Last Admin Trade Name Freq PRN Reason Stop Dose Admin Acetaminophen/Codeine Phosphate 1 tab 09/06/21 22:15 09/06/21 22:51 Acetaminophen/Codeine 300 Mg/30 Mg Tablet PO 1 tab Q4HR PRN Administration PAIN 5-7 Furosemide 20 mg 09/06/21 09:00 09/07/21 09:11 Furosemide 20 Mg/2 Ml Vial IVP 20 mg DAILY LAVONNE Administration Ciprofloxacin 400 mg in 200 mls @ 200 mls/hr 09/05/21 12:30 09/08/21 01:31 Cipro 400 Mg/200 Ml IV 09/10/21 01:29 Infused Q12H LAVONNE Infusion Metronidazole 500 mg in 100 mls @ 100 mls/hr 09/05/21 14:00 09/08/21 06:42 Flagyl 500 Mg/100 Ml IV 09/10/21 06:59 Infused Q8H LAVONNE Infusion Magnesium Oxide 400 mg 09/01/21 09:00 09/07/21 09:11 Magnesium Oxide 400 Mg Tablet PO 400 mg DAILYWM LAVONNE Administration Methocarbamol 500 mg 09/01/21 08:47 09/03/21 18:58 Methocarbamol 500 Mg Tablet PO 500 mg Q6HR PRN Administration Spasms Mineral Oil 1 applic 08/30/21 05:31 09/07/21 10:00 Min Oil/Dimethicon/Coconut Oil 92 Gm Tube TOP 1 applic PRN PRN Administration Skin Care Multi-Ingredient Ointment 1 applic 08/28/21 11:59 09/08/21 00:37 Zinc Oxide 20% Oint 30 Gm Tube TOP 1 applic PRN PRN Administration Skin Care Sodium Chloride 10 ml 08/27/21 17:44 09/07/21 12:15 Sodium Chloride Flush 0.9% 10 Ml Syringe IVP 10 ml PRN PRN Administration NEEDED PER PROVIDER ORDERS Sodium Chloride 10 ml 08/28/21 01:00 09/08/21 00:12 Sodium Chloride Flush 0.9% 10 Ml Syringe IVP 10 ml 0100,0900,1700 LAVONNE Administration - Lab Result Fish Bone Diagrams: 09/08/21 06:00 09/08/21 06:00 - Additional Planning My Orders: My Active Orders 09/09/21 05:00 BMP - BASIC METABOLIC PANEL [CHEM] DAILYLAB CBC - COMP BLD CT W/AUTO DIFF [HEME] DAILYLAB 09/10/21 05:00 BMP - BASIC METABOLIC PANEL [CHEM] DAILYLAB CBC - COMP BLD CT W/AUTO DIFF [HEME] DAILYLAB 09/11/21 05:00 BMP - BASIC METABOLIC PANEL [CHEM] DAILYLAB CBC - COMP BLD CT W/AUTO DIFF [HEME] DAILYLAB 09/12/21 05:00 BMP - BASIC METABOLIC PANEL [CHEM] DAILYLAB CBC - COMP BLD CT W/AUTO DIFF [HEME] DAILYLAB Subjective - Subjective Patient Reports: Other (She was resting comfortably in bed. He denied any c omplaints.) Objective Vital Signs: Vital Signs - 24 hr 09/07/21 09/07/21 09/08/21 08:00 18:11 00:57 Temperature 36.5 C 37.0 C 36.9 C Heart Rate [ 60 71 65 Brachial] Respiratory 18 18 17 Rate Blood Pressure 144/84 H 138/71 H 140/72 H [Right Brachial artery] O2 Saturation 95 97 95 Oxygen O2 Source Room air I&O (Last 24 Hrs): Intake and Output Totals x24h 09/06/21 09/07/21 09/08/21 23:59 23:59 23:59 Intake Total 1885 1250.000 300 Output Total 21 300 Balance 1864 950.000 300 Comments/Notes: General: Alert, No acute distress HEENT: PERRLA, EOMI Neck: Supple, No JVD Neuro: Alert Cardiovascular: Regular rate, No murmurs Respiratory: Chest non-tender, No respiratory distress, Breath sounds nml Abdomen: Normal bowel sounds, Soft Extremities: No clubbing, No edema, No tenderness/swelling Skin: No rashes, No breakdown - Results Results: Laboratory Results WBC 11.7 x10^3/uL (4.8-10.8) H 09/08/21 06:00 RBC 3.46 10^6/uL (4.70-6.10) L 09/08/21 06:00 Hgb 11.0 g/dL (14.0-18.0) L 09/08/21 06:00 Hct 32.2 % (42.0-52.0) L 09/08/21 06:00 MCV 93.1 fL (80.0-94.0) 09/08/21 06:00 MCH 31.8 pg (27.0-31.0) H 09/08/21 06:00 MCHC 34.2 g/dL (32.0-36.0) 09/08/21 06:00 RDW 14.0 % (12.0-15.0) 09/08/21 06:00 Plt Count 512 10^3/uL (130-450) H 09/08/21 06:00 MPV 8.8 fL (7.4-11.4) 09/08/21 06:00 Neut # (Auto) 9.0 10^3/uL (1.5-6.6) H 09/08/21 06:00 Lymph # (Auto) 1.3 10^3/uL (1.5-3.5) L 09/08/21 06:00 Parke # (Auto) 1.0 10^3/uL (0.0-1.0) 09/08/21 06:00 Eos # (Auto) 0.2 10^3/uL (0.0-0.7) 09/08/21 06:00 Baso # (Auto) 0.1 10^3/uL (0.0-0.1) 09/08/21 06:00 Absolute Nucleated RBC 0.00 x10^3/uL 09/08/21 06:00 Total Counted 100 09/01/21 05:20 Band Neuts % (Manual) 1 % (0-10) 09/01/21 05:20 Abnorm Lymph % (Manual) 0 % 09/01/21 05:20 Nucleated RBC % 0.0 /100WBC 09/08/21 06:00 Neutrophils # (Manual) 9.1 10^3/uL (1.5-6.6) H 09/01/21 05:20 Lymphocytes # (Manual) 1.6 10^3/uL (1.5-3.5) 09/01/21 05:20 Monocytes # (Manual) 0.7 10^3/uL (0.0-1.0) 09/01/21 05:20 Eosinophils # (Manual) 0.2 10^3/uL (0-0.7) 09/01/21 05:20 Basophils # (Manual) 0.0 10^3/uL (0-0.1) 09/01/21 05:20 Differential Comment MANUAL DIFFERENTIAL 09/01/21 05:20 Manual Slide Review Indicated 08/27/21 15:25 WBC Morphology NORMAL APPEARANCE (NORMAL) 09/01/21 05:20 Platelet Estimate NORMAL (130-450,000) (NORMAL) 09/01/21 05:20 Platelet Morphology NORMAL APPEARANCE (NORMAL) 09/01/21 05:20 RBC Morph Micro Appear NORMAL APPEARANCE (NORMAL) 09/01/21 05:20 PT 20.4 secs (9.9-12.6) H 09/02/21 05:16 INR 1.8 (0.8-1.2) H 09/02/21 05:16 Sodium 138 mmol/L (135-145) 09/08/21 06:00 Potassium 3.5 mmol/L (3.5-5.0) 09/08/21 06:00 Chloride 102 mmol/L (101-111) 09/08/21 06:00 Carbon Dioxide 26 mmol/L (21-32) 09/08/21 06:00 Anion Gap 10.0 (6-13) 09/08/21 06:00 BUN 8 mg/dL (6-20) 09/08/21 06:00 Creatinine 0.8 mg/dL (0.6-1.2) 09/08/21 06:00 Estimated GFR (MDRD) 93 (>89) 09/08/21 06:00 Glucose 110 mg/dL (70-100) H 09/08/21 06:00 Lactic Acid 1.3 mmol/L (0.5-2.2) 08/27/21 15:25 Calcium 8.0 mg/dL (8.5-10.3) L 09/08/21 06:00 Magnesium 1.9 mg/dL (1.7-2.8) 08/29/21 04:43 Total Bilirubin 0.9 mg/dL (0.2-1.0) 09/04/21 11:27 Direct Bilirubin 0.2 mg/dL (0.1-0.5) 09/04/21 11:27 AST 34 IU/L (10-42) 09/04/21 11:27 ALT 42 IU/L (10-60) 09/04/21 11:27 Alkaline Phosphatase 49 IU/L (42-121) 09/04/21 11:27 B-Natriuretic Peptide 335 pg/mL (5-100) H 08/27/21 15:25 Total Protein 6.0 g/dL (6.7-8.2) L 09/04/21 11:27 Albumin 2.3 g/dL (3.2-5.5) L 09/04/21 11:27 Globulin 3.7 g/dL (2.1-4.2) 09/04/21 11:27 Albumin/Globulin Ratio 0.8 (1.0-2.2) L 08/27/21 15:25 Urine Color DARK YELLOW 08/27/21 16:15 Urine Clarity CLEAR (CLEAR) 08/27/21 16:15 Urine pH 5.5 PH (5.0-7.5) 08/27/21 16:15 Ur Specific [place] >=1.030 (1.002-1.030) H 08/27/21 16:15 Urine Protein 100 mg/dL (NEGATIVE) H 08/27/21 16:15 Urine Glucose (UA) NEGATIVE mg/dL (NEGATIVE) 08/27/21 16:15 Urine Ketones NEGATIVE mg/dL (NEGATIVE) 08/27/21 16:15 Urine Occult Blood SMALL (NEGATIVE) H 08/27/21 16:15 Urine Nitrite NEGATIVE (NEGATIVE) 08/27/21 16:15 Urine Bilirubin NEGATIVE (NEGATIVE) 08/27/21 16:15 Urine Urobilinogen 0.2 (NORMAL) E.U./dL (NORMAL) 08/27/21 16:15 Ur Leukocyte Esterase NEGATIVE (NEGATIVE) 08/27/21 16:15 Urine RBC 0-5 /HPF (0-5) 08/27/21 16:15 Urine WBC 0-3 /HPF (0-3) 08/27/21 16:15 Ur Epithelial Cells FEW Transitional /HPF (<= Few) 08/27/21 16:15 Ur Squamous Epith Cells RARE Squamous (<= Few) 08/27/21 16:15 Urine Bacteria Rare /HPF (None Seen) 08/27/21 16:15 Urine Mucus Few Strands 08/27/21 16:15 Urine Culture Comments NOT INDICATED 08/27/21 16:15 Fluid Source 09/02/21 10:50 Fluid Color PINK 09/02/21 10:50 Fluid Clarity TURBID 09/02/21 10:50 Fluid WBC 132641 /mm^3 09/02/21 10:50 Fluid RBC 969944 /mm^3 09/02/21 10:50 Fluid Neutrophils % 90.0 % 09/02/21 10:50 Fluid Lymphocytes % 9.0 % 09/02/21 10:50 Fluid Macrophages % 1.0 % 09/02/21 10:50 Fld Mesothelial Cell % Not Reportable 09/02/21 10:50 Nasal Adenovirus (PCR) NOT DETECTED 08/27/21 15:17 Nasal B. parapertussis DNA (PCR) NOT DETECTED 08/27/21 15:17 Nasal Coronavir 229E PCR NOT DETECTED 08/27/21 15:17 Nasal Coronavir HKU1 PCR NOT DETECTED 08/27/21 15:17 Nasal Coronavir NL63 PCR NOT DETECTED 08/27/21 15:17 Nasal Coronavir OC43 PCR NOT DETECTED 08/27/21 15:17 Nasal Enterovir/Rhinovir PCR NOT DETECTED 08/27/21 15:17 Nasal Influenza B PCR NOT DETECTED 08/27/21 15:17 Nasal Influenza A PCR NOT DETECTED 08/27/21 15:17 Nasal Parainfluen 1 PCR NOT DETECTED 08/27/21 15:17 Nasal Parainfluen 2 PCR NOT DETECTED 08/27/21 15:17 Nasal Parainfluen 3 PCR NOT DETECTED 08/27/21 15:17 Nasal Parainfluen 4 PCR NOT DETECTED 08/27/21 15:17 Nasal RSV (PCR) NOT DETECTED 08/27/21 15:17 Nasal B.pertussis DNA PCR NOT DETECTED 08/27/21 15:17 Nasal C.pneumoniae (PCR) NOT DETECTED 08/27/21 15:17 Nura Human Metapneumo PCR NOT DETECTED 08/27/21 15:17 Nasal M.pneumoniae (PCR) NOT DETECTED 08/27/21 15:17 Nasal SARS-CoV-2 (PCR) NOT DETECTED 08/27/21 15:17 Stl C. diff Tox B Gene NEGATIVE (NEGATIVE) 09/05/21 11:50 Hepatitis A IgM Ab NON-REACTIVE (NON-REACTIVE) 08/27/21 15:25 Hep Bs Antigen NON-REACTIVE (NON-REACTIVE) 08/27/21 15:25 Hep B Core IgM Ab NON-REACTIVE (NON-REACTIVE) 08/27/21 15:25 Hepatitis C Antibody NON-REACTIVE (NON-REACTIVE) 08/27/21 15:25 Hep C Ab Signal/Cutoff 0.00 (<1.00) 08/27/21 15:25 Blood Type Cancelled 09/01/21 14:42 Blood Type Recheck A POSITIVE 09/01/21 05:20 ABX Reporting Has patient been on IV antibiotics over the past 48 hours?: Yes
[2021-09-08] MEDS: MAGNESIUM OXIDE 400 MG TABLET PO SCH (08:30)
[2021-09-08] MEDS: FUROSEMIDE 20 MG/2 ML VIAL IVP SCH (10:14)
[2021-09-08] MEDS: SODIUM CHLORIDE FLUSH 0.9% 10 ML SYRINGE IVP PRN (12:56)
[2021-09-08] MEDS: NYSTATIN POWDER 15 GM TOP SCH ×2 (14:28→22:06)
[2021-09-08] MEDS: MIN OIL/DIMETHICON/COCONUT OIL 92 GM TUBE TOP PRN (22:06)
[2021-09-09] MEDS: SODIUM CHLORIDE FLUSH 0.9% 10 ML SYRINGE IVP SCH ×2 (00:34→11:17)
[2021-09-09] MEDS: CIPROFLOXACIN 400 MG/200 ML 400 MG/200 ML BAG IV SCH ×2 (00:34→11:17)
[2021-09-09] MEDS: metroNIDAZOLE 500 MG/100 ML 500 MG/100 ML BAG IV SCH ×2 (05:31→12:21)
[2021-09-09 07:26] LABS: BASOPHILS # (AUTO) 0.1 10^3/uL (0.0-0.1); BASOPHILS % (AUTO) 0.6 %; EOSINOPHILS # (AUTO) 0.2 10^3/uL (0.0-0.7); EOSINOPHILS % (AUTO) 1.5 %; HCT - HEMATOCRIT 34.5 % (42.0-52.0); HGB - HEMOGLOBIN 11.5 g/dL (14.0-18.0); LYMPHOCYTES # (AUTO) 1.3 10^3/uL (1.5-3.5); MEAN CORPUSCULAR HEMOGLOBIN 31.3 pg (27.0-31.0); MEAN CORPUSCULAR HGB CONC 33.3 g/dL (32.0-36.0); MEAN CORPUSCULAR VOLUME 93.8 fL (80.0-94.0); MEAN PLATELET VOLUME 8.6 fL (7.4-11.4); MONOCYTES % (AUTO) 8.3 %; NEUTROPHILS # (AUTO) 9.3 10^3/uL (1.5-6.6); NEUTROPHILS % (AUTO) 77.4 %; PLT - PLATELET COUNT 537 10^3/uL (130-450); RED BLOOD COUNT 3.68 10^6/uL (4.70-6.10); RED CELL DISTRIBUTION WIDTH 13.7 % (12.0-15.0)
[2021-09-09 07:34] LABS: CALCIUM 8.3 mg/dL (8.5-10.3); POTASSIUM 4.2 mmol/L (3.5-5.0)
[2021-09-09] MEDS ORDERED: MULTIVITAMIN W/MINERALS TABLET PO SCH (08:00)
[2021-09-09 08:04] VITALS: BP 136/69
[2021-09-09] MEDS: FUROSEMIDE 20 MG/2 ML VIAL IVP SCH (11:16)
[2021-09-09] MEDS: NYSTATIN POWDER 15 GM TOP SCH (11:16)
[2021-09-09] MEDS: MAGNESIUM OXIDE 400 MG TABLET PO SCH (11:16)
[2021-09-09 12:27] LABS: B. PARAPERTUSSIS- RESP PCR PAN NOT DETECTED; B. PERTUSSIS- RESP PCR PANEL NOT DETECTED; CORONAVIRUS 229E-RESP PCR NOT DETECTED; CORONAVIRUS HKU1-RESP PCR NOT DETECTED; CORONAVIRUS NL63-RESP PCR NOT DETECTED; CORONAVIRUS OC43-RESP PCR NOT DETECTED; HUMAN METAPNEUMOVIRUS NOT DETECTED; INFLUENZA A- RESP PCR PANEL NOT DETECTED; INFLUENZA B - RESP PCR PANEL NOT DETECTED; PARAINFLUENZA VIRUS 1 NOT DETECTED; PARAINFLUENZA VIRUS 2 NOT DETECTED; PARAINFLUENZA VIRUS 3 NOT DETECTED; PARAINFLUENZA VIRUS 4 NOT DETECTED; RHINOVIRUS/ENTEROVIRUS NOT DETECTED; RSV- RESP PCR PANEL NOT DETECTED; SARS-CoV-2 -RESP PCR PANEL NOT DETECTED
[2021-09-09 12:28] LABS: C. PNEUMONIAE- RESP PCR PANEL NOT DETECTED; M. PNEUMONIAE- RESP PCR PANEL NOT DETECTED
--- NOTE | 2021-09-09 13:34 | DISCHARGE SUMMARY ---
Discharge Summary Admit Date: 08/27/21 Discharge Date: 09/10/21 Discharging Provider: Merissa Lewis Primary Care Provider: Brandon Alas Code Status: Attempt Resuscitation Condition at Discharge: Stable Discharge Disposition: SNF DC/Xfer Discharge [facility] Name: [facility] - DIAGNOSES Admission Diagnoses: Perforated viscus Bacteremia Acute encephalopathy Elevated liver enzymes Pneumonia Enlarged heart Dementia associated with alcoholism Dehydration Discharge Diagnoses with Status of Each Condition: Liver Abscess: Patient had a percutaneous drainage tube placed which drained for 3 days. Has been on Cipro and Flagyl IV for 4 days. We will continue Cipro and Flagyl p.o. for 7 days in the outpatient setting. Patient to follow-up with Dr. Clara Nye in 2 weeks in the outpatient setting for repeat abdominal ultrasound. Perforated abdominal viscus: Repeat imaging did not show any perforated abdominal viscus. Bacteremia: Staph hemolyticus grew which was thought to be a contaminant. Acute metabolic encephalopathy: Possibly secondary to infection. Resolved. Patient is back to baseline. Elevated liver enzymes: Resolved Pneumonia: Improved/ Resolved Enlarged heart: Preserved ejection fraction of 60 to 65%. Impaired relaxation consistent with grade 1 diastolic dysfunction. Stable Dementia associated with alcoholism: Chronic. No behavioral disturbances Dehydration: Resolved - HPI History of Present Illness: Per HPI: He is a 80-year-old white male who lives in an assisted living facility due to history of cerebellar ataxia, dementia, and previous history of significant alcohol abuse. He has been living at the assisted living facility since approximately March 2020. He had been living in a hotel room, found in [facility], taken to [facility] in March 2020. From [place] he was discharged to the assisted living facility. 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 Alcohol abuse was present until March 2020. He is a former smoker who quit smoking around the age of 42. He has high blood pressure, hyperlipidemia, chronically elevated liver enzymes. He has a history of numerous falls. He tries to walk with a walker or a cane if he remembers. He has been seen in the emergency room a couple of times or treated for UTIs in the past year. He was in his usual state of health when the emergency room felt that he was more lethargic than usual. No specific complaints of fever, chills, diarrhea, abdominal pain. They sent him to the emergency room on October 11 where he was evaluated by Dr. Kemp. He was afebrile. Well-nourished. A delayed speech latency and delay in execution of motor commands. But no respiratory distress, clear lungs, benign abdomen. His usual creatinine is 1.4 and he was 1.1. White cell count was 18.5. Urinalysis had a moderate amount of blood, rare squamous cells, rare bacteria. He is inferior vena cava was interrogated via ultrasound and he was found to be significantly dehydrated. He responded to IV fluids. As such she was sent back to his assisted living facility. Blood cultures were done that night and came back positive for gram-negative bacilli. Preliminary report but via PCR does not tell us what it is. Cannot be detected. As such she was asked to come back to the emergency room. After being seen in the emergency room here, he has a low-grade temperature of 100.3. He is normotensive. Not tachycardic. Mildly tachypneic at 26. 94% on room air. He continues to be a cooperative demented elderly gentleman. He has clear lungs. Some conjunctival redness. Normal bowel sounds and nondistended. Repeat evaluation shows him to have a white cell count is 12.4. A BUN of 25 and a creatinine of 1.1. This gentleman has a history of chronically elevated liver enzymes in the past and his current bilirubin is 3.3, AST 58. Lactic acid is 1.3. BNP 335. Urinalysis is transitional cells as well as squamous cells. Dr. Cox spoke to the hospitalist service asking for tentative admission. We requested a CT of the abdomen to make sure he did not have urinary obstruction and we found him to have a surprising report of free air under the diaphragm. General surgery was consulted and found her to have some left lower quadrant tenderness, significant constipation, and most likely a small perforation resulting in free air under the diaphragm. We are being asked to admit the patient with general surgery to consult. They have asked for single agent Zosyn to be started. - HOSPITAL COURSE Hospital Course: Patient was started on Zosyn at time of admission. He was also seen by general surgery. On 09/02/2021 he had percutaneous drainage tube placed to drain the liver abscess. Repeat CT of the abdomen/pelvis with contrast was done on 09/05/2021. It showed interval decreased size of the patient's right upper quadrant abscesses. There was mild wall thickening of the urinary bladder, likely secondary to an enlarged prostate. There was mild wall thickening of the rectosigmoid colon with presacral fluid which is nonspecific but may reflect infectious or inflammatory process. There was increased bilateral pleural effusions. Antibiotics were switched from Zosyn to Cipro and Flagyl on 09/05/2021. This was maintained Until 09/05/2021 and then switched to p.o. Cipro 500 mg twice daily and Flagyl 500 mg 3 times daily for 7 days upon discharge. Continues to be drained serosanguineous fluid for 4 days. On the evening of 09/06/2021 patient accidentally pulled out the tube. Cultures of the percutane ous drainage fluid grew E. coli and Enterobacter cloacae complex His white blood cell count improved over the course of his hospital stay. On the day of discharge white blood cell count was 12. He remained afebrile. Elevated liver enzymes resolved by the time of discharge. Dehydration resolved. Patient's renal function was normal by discharge with a creatinine of 1.0 and estimated GFR 72 Abdominal ultrasound done on the day of discharge to reassess the abscess showed that it was decreased in size. The patient is to follow-up with Dr. Clara Nye in the outpatient setting in 2 weeks for a repeat abdominal ultrasound to confirm continued improvement of the abscess. Special stay was unremarkable He was discharged to [facility] for [facility] - ALLERGIES Allergies/Adverse Reactions: Allergies Allergy/AdvReac Type Severity Reaction Status Date / Time rosuvastatin [From Crestor] Allergy Unknown Verified 08/25/21 22:03 - MEDICATIONS Home Medications: Ambulatory Orders Medication Instructions Recorded Confirmed Aspirin [Children's Aspirin] 81 mg PO DAILY 12/28/19 08/27/21 Atorvastatin Calcium 40 mg PO DAILY 12/28/19 08/27/21 Acetaminophen 650 mg PO Q4HR PRN 07/04/20 08/27/21 Cyanocobalamin (Vitamin B-12) 1 tab PO DAILY 07/04/20 08/27/21 [Vitamin B-12 (1000 mcg sublingual)] Metoprolol Tartrate 25 mg PO BID 07/04/20 08/27/21 Quetiapine Fumarate 25 mg PO BID 07/04/20 08/27/21 Sennosides/Docusate Sodium [Senna 1 tab PO BID PRN 07/04/20 08/27/21 Plus 8.6-50 mg Tablet] Multivit-Min/Folic/Vit K/Lycop 1 each PO DAILY 08/27/21 08/27/21 [One Daily Men's 50 Plus D3 Tab] Ciprofloxacin HCl [Cipro] 500 mg PO BID 7 Days #14 tablet 09/09/21 metroNIDAZOLE [Flagyl] 500 mg PO TID 7 Days #21 tablet 09/09/21 - PHYSICAL EXAM AT DISCHARGE General Appearance: positive: No acute distress, Alert Eyes Bilateral: positive: PERRL, EOMI ENT: positive: No signs of dehydration Neck: positive: No JVD, Trachea midline Respiratory: positive: Chest non-tender, No respiratory distress, Breath sounds nml. negative: Wheezes, Rales, Rhonchi Cardiovascular: positive: Regular rate & rhythm, No murmur Abdomen: positive: Non-tender, No organomegaly, Nml bowel sounds, No distention. negative: Guarding, Rebound Back: positive: Nml inspection Skin: positive: Color nml, No rash, Warm, Dry Extremities: positive: Non-tender, Full ROM, Nml appearance, No pedal edema Neurologic/Psychiatric: positive: Oriented x3, Mood/affect nml - LABS Result Diagrams: 09/09/21 07:19 09/09/21 07:19 - TIME SPENT Time Spent in Discharge (Minutes): 20
--- NOTE | 2021-09-09 13:45 | Discharge Plan ---
"Discharge Plan for SNF / [facility] - Discharge Plan And Transition Orders Problem Reviewed?: Yes Disposition: 03 SNF DC/Xfer Condition: Stable Allergies and Adverse Reactions: Allergies Allergy/AdvReac Type Severity Reaction Status Date / Time rosuvastatin [From Crestor] Allergy Unknown Verified 08/25/21 22:03 Plan of Treatment: You were admitted on 08/27/2021 for concern of being lethargic, Having an elevated white count and a fever. Work-up showed that you had a liver abscess. You were initially started on Zosyn after preliminary blood cultures were obtained. 1 of 2 cultures grew Staphylococcus hemolyticus. This was felt to be a contaminant. You had a percutaneous drainage tube placed. Which drained well for about 3 days until it was accidentally pulled out overnight while asleep. Your Zosyn was changed to Cipro and Flagyl IV. This was maintained for 4 days. Over this time your white blood cell count steadily decreased. By the time of discharge your white count was 12. The highest reading was 14.4. Throughout your hospital stay you were afebrile and your vitals were stable. Cultures of the percutaneous tube drainage grew E. coli and Enterobacter cloaca complex. Upon discharge you were prescribed Cipro 500 mg p.o. twice daily and Flagyl 500 mg p.o. 3 times daily for 7 days. An abdominal ultrasound done on the day of discharge which was 09/09/2021 to assess the abscess showed that it was decreased in size but still present. However on further communication with the radiologist they advised that replacement of the percutaneous tube would not be possible due to absence of potential window to use. You are expected to follow-up with Dr. Clara Nye in the outpatient setting in 2 weeks at which time she will repeat an abdominal ultrasound to confirm continued improvement of the abscess You are being discharged to [facility] for rehabilitation. You are being discharged in stable condition. - SNF / [facility] Transition Orders Admit to (Facility): [facility] Under the care of (Name): Jaciel Driver Discharge Diagnosis: Liver Abscess: Patient had a percutaneous drainage tube placed which drained for 3 days. Has been on Cipro and Flagyl IV for 4 days. We will continue Cipro and Flagyl p.o. for 7 days in the outpatient setting. Patient to follow-up with Dr. Clara Nye in 2 weeks in the outpatient setting for repeat abdominal ultrasound. Perforated abdominal viscus: Repeat imaging did not show any perforated abdominal viscus. Bacteremia: Staph hemolyticus grew which was thought to be a contaminant. Acute metabolic encephalopathy: Possibly secondary to infection. Resolved. Patient is back to baseline. Elevated liver enzymes: Resolved Pneumonia: Improved/ Resolved Enlarged heart: Preserved ejection fraction of 60 to 65%. Impaired relaxation consistent with grade 1 diastolic dysfunction. Stable Dementia associated with alcoholism: Chronic. No behavioral disturbances Dehydration: Resolved Medicare Certification Statement: I certify that Post Hospital snf care is medically necessary on a continuing basis for any of the conditions for which she/he is receiving care during hospitalization. Notify PCP of admission and forward orders to primary provider for signature. Weight on admission and: Daily Other Notification Orders: Call PCP immediately if patient develops dyspnea, chest pain/tightness or edema. House Bowel Program: Yes Additional Bowel Program Orders: If no BM after 2 days, nurse may give M.O.M. 30ml PO PRN and/or ducolax Supp 1 NC and/or ROB 250mg P.O., and/or senna 1-2 tabs PO. On day 3 nurse may give re peat above order until residents constipation is resolved. Medication Orders: PLEASE REFER TO THE DISCHARGE MEDICATION LIST. - Medications New Prescriptions: Ciprofloxacin HCl [Cipro] 500 mg PO BID 7 Days #14 tablet metroNIDAZOLE [Flagyl] 500 mg PO TID 7 Days #21 tablet - Diet Type: Geriatric Texture: Regular Liquids: Thin May have monthly special meal: Yes - Therapies | Activity Therapy: Evaluation | Treat if indicated: PT, OT Activity: Activity as Tolerated (Per Physical therapy recommendations) Assistance Devices: Walker Follow Up: Dr Clara Nye in the out patient setting in 2 weeks"
--- NOTE | 2021-09-10 14:03 | Ultrasound Report ---
PROCEDURE: Abdomen Limited INDICATIONS: liver abscess TECHNIQUE: Real-time focused scanning was performed of the abdomen, with image documentation. Comment: The examination was terminated by the patient COMPARISON: Reference is made to the CT abdomen dated September 05, 2021 FINDINGS: A complex hypoechoic lesion is seen in the right inferior aspect of the liver, measuring 1 0.6 x 2.2 x 4.9 cm. Echogenic foci are seen within the aforementioned collection, likely reflecting g as. Persistent right pleural effusion and gallbladder wall thickening. IMPRESSION: 1.Complex, hypoechoic lesion in the inferior aspect of the liver, compatible with residual abscess. C onsider CT imaging for further evaluation as clinically warranted. Reviewed by: Toro Thomas MD on 09/10/2021 2:01 PM PDT Approved by: Toro Thomas MD on 09/10/2021 2:01 PM PDT Station ID: [id number]
== END 2021-09-09 16:03 | DRG 441 ==
LOC: EDUNIT# → ED 14:49 → MS3 17:44 → MS2 09-05 22:20
PROVIDERS: ADMIT Specialist; ATTEND Internal Medicine
PROC: 0W9H30Z Drainage of Retroperitoneum with Drainage Device, Percutaneous Approach (ICD-10-PCS; principal; 2021-09-02)
DX: K63.1 Perforation of intestine (nontraumatic) (principal); K75.0 Abscess of liver; R78.81 Bacteremia; K52.9 Noninfective gastroenteritis and colitis, unspecified; I10 Essential (primary) hypertension; E78.00 Pure hypercholesterolemia, unspecified; F03.90 Unspecified dementia, unspecified severity, without behavioral disturbance, psychotic disturbance, mood disturbance, and anxiety; Z20.822 Contact with and (suspected) exposure to COVID-19; G93.41 Metabolic encephalopathy; J18.9 Pneumonia, unspecified organism; F10.27 Alcohol dependence with alcohol-induced persisting dementia; J81.1 Chronic pulmonary edema; K52.1 Toxic gastroenteritis and colitis; I11.9 Hypertensive heart disease without heart failure; R79.89 Other specified abnormal findings of blood chemistry; E86.0 Dehydration; T36.95XA Adverse effect of unspecified systemic antibiotic, initial encounter; E78.5 Hyperlipidemia, unspecified; B96.20 Unspecified Escherichia coli [E. coli] as the cause of diseases classified elsewhere; B96.89 Other specified bacterial agents as the cause of diseases classified elsewhere; I25.10 Atherosclerotic heart disease of native coronary artery without angina pectoris; R26.0 Ataxic gait; R32 Unspecified urinary incontinence; R35.0 Frequency of micturition; H54.7 Unspecified visual loss; E87.6 Hypokalemia; R73.9 Hyperglycemia, unspecified; K56.41 Fecal impaction; Z91.81 History of falling; Z79.82 Long term (current) use of aspirin; Z87.891 Personal history of nicotine dependence; Z79.899 Other long term (current) drug therapy; Z87.440 Personal history of urinary (tract) infections
CPT/HCPCS: 36415; 49406; 51701; 71045; 74176; 74177; 76705; 77012; 80048; 80053; 80074; 80076; 81001; 83605; 83735; 83880; 85025; 85610; 87040; 87070; 87077; 87150; 87181; 87205; 87493; 87631; 89051; 93306; 96365; 96367; 97116; 97162; 97165; 97530; 99285; A6250; A9270; J1650; J7120; P9017; Q9967; 0202U; 86900; 86901; 87086